=== PATIENT | male | born 1930 | race Caucasian/White ===

== ENCOUNTER → 2017-08-21 | Outpatient (CLI) | payer MEDICARE, OTHER ==
[2017-08-21] MEDS: REGADENOSON 0.4 MG/5 ML DISP.SYRIN. IV (10:08)
== END | disposition home or self-care (01) ==
LOC: NM 09:26
DX: I08.1 Rheumatic disorders of both mitral and tricuspid valves (principal); I48.91 Unspecified atrial fibrillation; I10 Essential (primary) hypertension; I25.2 Old myocardial infarction; I27.20 Pulmonary hypertension, unspecified
CPT/HCPCS: 78452; 93017; 93306; 96374; 96375; 96376; A9500; J2785

== ENCOUNTER → 2017-08-31 | Day surgery (SDC) | payer MEDICARE, OTHER ==
[~2017-08-31] MED LIST: 0.9 % SODIUM CHLORIDE 10 ML DISP.SYRIN. IV; BENZOCAINE ONE 20% MUCOSAL SPRAY.; IV RINGERS,LACTATED 1000ML 1,000 ML IV; LIDOCAINE 1% PF 2 ML VIAL. ID; LIDOCAINE 2% PF Vial for OR 5 ML VIAL.; LIDOCAINE 2% TOPICAL JELLY 5GM TUBE. TP; LIDOCAINE 2% VISCOUS 15 ML SOLUTION.; MORPHINE SULFATE 4 MG/ML DISP.SYRIN. IV; ONDANSETRON PF 4 MG/2 ML VIAL. IV; PROCHLORPERAZINE 10 MG/2 ML VIAL. IV; PROPOFOL 20 ML IV; fentaNYL PF VIAL 100 MCG/2 ML VIAL IV
[2017-08-31 10:20] LABS: HEMATOCRIT 35.5 % (39.0-53.0); HEMOGLOBIN 11.8 g/dL (13.0-17.5); MEAN CORPUSCULAR HEMOGLOBIN 28 pg (25-35); MEAN CORPUSCULAR HGB CONC 33 g/dL (31-37); MEAN CORPUSCULAR VOLUME 85 fL (79-100); PLATELET COUNT 212 x10^3/uL (140-400); RED CELL DISTRIBUTION WIDTH 16.5 % (11.5-14.5); WHITE BLOOD COUNT 6.7 x10^3/uL (4.0-11.0)
[2017-08-31 10:43] LABS: ANION GAP 8 (6-14); BLOOD UREA NITROGEN 26 mg/dL (8-26); CALCIUM 8.5 mg/dL (8.5-10.1); CARBON DIOXIDE 29 mmol/L (21-32); CHLORIDE 106 mmol/L (98-107); CREATININE 1.1 mg/dL (0.7-1.3); GFR 63.3; GLUCOSE 97 mg/dL (70-99); MAGNESIUM 1.8 mg/dL (1.8-2.4); POTASSIUM 3.5 mmol/L (3.5-5.1); SODIUM 143 mmol/L (136-145)
== END | disposition home or self-care (01) ==
LOC: SURG 08:52
DX: I48.91 Unspecified atrial fibrillation (principal); Z86.73 Personal history of transient ischemic attack (TIA), and cerebral infarction without residual deficits; I27.20 Pulmonary hypertension, unspecified; E78.00 Pure hypercholesterolemia, unspecified; I10 Essential (primary) hypertension; J44.9 Chronic obstructive pulmonary disease, unspecified; M19.90 Unspecified osteoarthritis, unspecified site; Z72.89 Other problems related to lifestyle; Z87.891 Personal history of nicotine dependence; Z79.82 Long term (current) use of aspirin; Z79.899 Other long term (current) drug therapy; Z82.3 Family history of stroke; Z79.01 Long term (current) use of anticoagulants; Z98.42 Cataract extraction status, left eye; Z98.41 Cataract extraction status, right eye; Z96.1 Presence of intraocular lens
CPT/HCPCS: 36415; 80048; 83735; 85027; 92960; 93005; J2704

== ENCOUNTER → 2017-10-19 | Day surgery (SDC) | payer MEDICARE, OTHER ==
[~2017-10-19] MED LIST changes: -BENZOCAINE ONE 20% MUCOSAL SPRAY.; -IV RINGERS,LACTATED 1000ML 1,000 ML IV; -LIDOCAINE 1% PF 2 ML VIAL. ID; -LIDOCAINE 2% PF Vial for OR 5 ML VIAL.; -LIDOCAINE 2% TOPICAL JELLY 5GM TUBE. TP; -LIDOCAINE 2% VISCOUS 15 ML SOLUTION.; -MORPHINE SULFATE 4 MG/ML DISP.SYRIN. IV; -ONDANSETRON PF 4 MG/2 ML VIAL. IV; -PROCHLORPERAZINE 10 MG/2 ML VIAL. IV; -PROPOFOL 20 ML IV; -fentaNYL PF VIAL 100 MCG/2 ML VIAL IV
[2017-10-19] MEDS: IV RINGERS,LACTATED 1000ML 1,000 ML IV (07:00)
[2017-10-19 10:10] LABS: ANION GAP 4 (6-14); BLOOD UREA NITROGEN 19 mg/dL (8-26); CALCIUM 8.4 mg/dL (8.5-10.1); CARBON DIOXIDE 35 mmol/L (21-32); CHLORIDE 102 mmol/L (98-107); CREATININE 1.3 mg/dL (0.7-1.3); GFR 52.1; GLUCOSE 96 mg/dL (70-99); MAGNESIUM 1.8 mg/dL (1.8-2.4); SODIUM 141 mmol/L (136-145)
[2017-10-19 10:18] LABS: POTASSIUM 2.8 mmol/L (3.5-5.1)
[2017-10-19] MEDS: POTASSIUM CHLORIDE 20 MEQ TABLET.ER. PO (10:57)
== END | disposition home or self-care (01) ==
LOC: SURG 10:24
DX: I48.91 Unspecified atrial fibrillation (principal); Z53.8 Procedure and treatment not carried out for other reasons; I10 Essential (primary) hypertension; M19.90 Unspecified osteoarthritis, unspecified site; E78.00 Pure hypercholesterolemia, unspecified; J44.9 Chronic obstructive pulmonary disease, unspecified; Z72.89 Other problems related to lifestyle; Z98.890 Other specified postprocedural states; Z98.42 Cataract extraction status, left eye; Z98.41 Cataract extraction status, right eye; Z86.73 Personal history of transient ischemic attack (TIA), and cerebral infarction without residual deficits; Z87.891 Personal history of nicotine dependence
CPT/HCPCS: 36415; 80048; 83735; 93005

== ENCOUNTER 2018-09-09 17:57 | Inpatient (IN) | payer MEDICARE, OTHER ==
[~2018-09-09] VITALS: Ht 175.3 cm; Wt 78.9 kg
[~2018-09-09 17:57] MED LIST changes: -0.9 % SODIUM CHLORIDE 10 ML DISP.SYRIN. IV; +AMIO200T4 PO; +APIX2.5T PO; +ASPI-630 PO; +CALC-98 PO; +CRESTOR20 MG PO; +LOSA1TAB19 PO; +TYLENOL ARTHRITIS PO
[2018-09-09] MEDS ORDERED: IPRATRPIUM/ALBUTEROL 0.5/2.5MG 3 ML NEBU. ONE (18:09)
--- NOTE | 2018-09-09 18:28 | PHYS DOC ---
Adult General Chief Complaint Chief Complaint: BRADYCARDIA HPI HPI Patient is an 88-year-old male who presents to emergency room with report of mental status change, hypoxia and shortness of breath on exertion. Patient re portedly had been seen by Dr. Stuart and worry and family indicates that he indicated that patient had normal echocardiogram. Patient does note that he has had some increase in swelling to his lower legs for the last few days. He denies any chest pain and states that he doesn't feel short of breath unless he tries to walk. He denies any nausea, vomiting or diaphoresis. Family also indicates that patient has been confused and they state that his primary care provider had wanted to get a CT of his head to evaluate for possibility of stroke. Patient reportedly has no slurred speech and no other signs of stroke.[] Review of Systems Review of Systems Constitutional: Denies fever or chills [] Respiratory: Positive exertional shortness of breath [] Cardiovascular: No additional information not addressed in HPI [] GI: Denies abdominal pain, nausea, vomiting or diarrhea [] Integument: Denies rash or skin lesions [] Neurologic: Denies headache, focal weakness or sensory changes [] All other systems were reviewed and found to be within normal limits, except as documented in this note. Current Medications Current Medications Current Medications Medications (Trade) Dose Ordered Sig/Jose Start Time Stop Time Status Last Admin Dose Admin Albuterol/ Ipratropium (Duoneb) 3 ml STK-MED ONCE 09/09/18 18:09 09/09/18 18:10 DC Allergies Allergies Allergies Coded Allergies Type Severity Reaction Last Updated Verified No Known Drug Allergies 10/19/17 No Physical Exam Physical Exam Constitutional: Well developed, well nourished, no acute distress, non-toxic appearance. [] HENT: Normocephalic, atraumatic, bilateral external ears normal, oropharynx moist, no oral exudates, nose normal. [] Eyes: PERRLA, EOMI, conjunctiva normal, no discharge. [] Neck: Normal range of motion, no tenderness, supple, no stridor. [] Cardiovascular: Bradycardic rate with irregular rhythm[] Lungs & Thorax: Bilateral breath sounds clear to auscultation [] Abdomen: Bowel sounds normal, soft, no tenderness. [] Skin: Warm, dry, no erythema, no rash. [] Extremities: No tenderness, no cyanosis, no clubbing, ROM intact, with 3+ lower extremity pitting edema. [] Neurologic: Awake and alert, no focal deficits noted. [] Current Patient Data Vital Signs Vital Signs Date Time Temp Pulse Resp B/P (MAP) Pulse Ox O2 Delivery O2 Flow Rate FiO2 09/09/18 19:37 40 18 174/64 (100) 97 Nasal Cannula 2.0 09/09/18 18:08 98.1 98.1 Lab Values Laboratory Tests Test 09/09/18 18:10 09/09/18 18:36 09/09/18 19:40 White Blood Count 6.7 x10^3/uL (4.0-11.0) Red Blood Count 3.82 x10^6/uL (4.30-5.70) L Hemoglobin 9.3 g/dL (13.0-17.5) L Hematocrit 30.9 % (39.0-53.0) L Mean Corpuscular Volume 81 fL (79-100) Mean Corpuscular Hemoglobin 24 pg (25-35) L Mean Corpuscular Hemoglobin Concent 30 g/dL (31-37) L Red Cell Distribution Width 17.0 % (11.5-14.5) H Platelet Count 260 x10^3/uL (140-400) Neutrophils (%) (Auto) 76 % (31-73) H Lymphocytes (%) (Auto) 13 % (24-48) L Monocytes (%) (Auto) 11 % (0-9) H Eosinophils (%) (Auto) 0 % (0-3) Basophils (%) (Auto) 1 % (0-3) Neutrophils # (Auto) 5.0 x10^3uL (1.8-7.7) Lymphocytes # (Auto) 0.8 x10^3/uL (1.0-4.8) L Monocytes # (Auto) 0.7 x10^3/uL (0.0-1.1) Eosinophils # (Auto) 0.0 x10^3/uL (0.0-0.7) Basophils # (Auto) 0.1 x10^3/uL (0.0-0.2) Prothrombin Time 17.2 SEC (11.7-14.0) H Prothrombin Time INR 1.4 (0.8-1.1) H PTT 34 SEC (24-38) D-Dimer (Kristie) 2.46 ug/mlFEU (0.00-0.50) H Sodium Level 142 mmol/L (136-145) Potassium Level 3.5 mmol/L (3.5-5.1) Chloride Level 103 mmol/L (98-107) Carbon Dioxide Level 28 mmol/L (21-32) Anion Gap 11 (6-14) Blood Urea Nitrogen 55 mg/dL (8-26) H Creatinine 2.4 mg/dL (0.7-1.3) H Estimated GFR (Cockcroft-Gault) 25.6 BUN/Creatinine Ratio 23 (6-20) H Glucose Level 94 mg/dL (70-99) Calcium Level 8.4 mg/dL (8.5-10.1) L Total Bilirubin 1.8 mg/dL (0.2-1.0) H Aspartate Amino Transferase (AST) 76 U/L (15-37) H Alanine Aminotransferase (ALT) 47 U/L (16-63) Alkaline Phosphatase 156 U/L (46-116) H Troponin I Quantitative 0.123 ng/mL (0.000-0.055) WR-Gkx-Z-Type Natriuretic Peptide 6062 pg/mL (0-449) H Total Protein 6.7 g/dL (6.4-8.2) Albumin 2.8 g/dL (3.4-5.0) L Albumin/Globulin Ratio 0.7 (1.0-1.7) L Influenza Type A Antigen Negative (NEGATIVE) Influenza Type B Antigen Negative (NEGATIVE) Lactic Acid Level 2.0 mmol/L (0.4-2.0) Laboratory Tests 09/09/18 18:10 Laboratory Tests 09/09/18 18:10 EKG EKG [] Interpretation Time: EKG demonstrates irregular rhythm with rate of 47. Radiology/Procedures Radiology/Procedures [] Impressions: PROCEDURE: CT HEAD WO CONTRAST CT HEAD WO CONTRAST History: Altered mental status Comparison: None. Technique: Noncontrast CT imaging was performed of the head. Exposure: One or more of the following individualized dose reduction techniques were utilized for this examination: 1. Automated exposure control 2. Adjustment of the mA and/or kV according to patient size 3. Use of iterative reconstruction technique. Findings: There is some motion. There is focus of lower density with extent to the cortical surface of the left frontal lobe about 3 cm in size with associated faint somewhat curvilinear appearing hyperdensity. There is no significant midline shift. Ventricular size is fairly proportionate to the sulcal spaces, mild supratentorial involutional change. There may be thin left frontal region extra-axial subdural collection although not significantly hyperdense in greatest thickness about 0.3 to 0.4 cm, asymmetric with the right side. There is likely old right cerebellar lacunar infarct. There is some scattered ill-defined low-density of the supratentorial parenchyma greatest of the left frontal parietal white matter. There is severe very minimal ethmoid air cell opacification greater on the left, also prominent left maxillary sinus mucosal thickening with heterogeneous density. There is near complete opacification of the left frontal sinus. Mastoid air cells are aerated. Impression: 1. There is a focus of lower density of the left frontal lobe with cortical involvement, compatible with previous at least subacute if not chronic infarct, mild hyperdensity along margin which may be due to mild petechial type hemorrhage. There is very thin extra-axial subdural density in the left frontal region which may be small chronic subdural hematoma/effusion, not significantly hyperdense. Other ill-defined low-density of the supratentorial parenchyma is likely due to chronic microvascular ischemic disease. 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 2. There is paranasal sinus mucosal thickening/opacification as stated greatest of the left frontal sinus, left ethmoid air cells, left maxillary sinus. FOR INTERNAL CODING PURPOSES Critical result: Findings discussed with BAILEY REILLY at 09/09/2018 7:15 PM. RESULT CODE: (C) Electronically signed by: Benjamin Mckeon MD (09/09/2018 7:16 PM) [facility] PROCEDURE: CHEST PA & LATERAL CHEST PA LATERAL History: Dyspnea Comparison: None. Findings: 2 views of the chest are submitted. There is emphysema. Pericardial cardiac silhouette is somewhat enlarged. There is atherosclerotic calcification near aortic arch. There is no pneumothorax or significant pleural fluid. There is some opacity anteriorly on the lateral view, may be component of mild right middle lobe atelectasis or infiltrate. Impression: 1. There is some opacity anteriorly on the lateral view, possible mild atelectasis or infiltrate of the right middle lobe. There is no previous exam to evaluate for change. There is emphysema. Electronically signed by: Benjamin Mckeon MD (09/09/2018 7:33 PM) [facility] Course & Med Decision Making Course & Med Decision Making Pertinent Labs and Imaging studies reviewed. (See chart for details) [] Dragon Disclaimer Dragon Disclaimer This electronic medical record was generated, in whole or in part, using a voice recognition dictation system. Departure Departure Impression: Primary Impression: CVA (cerebral vascular accident) Additional Impressions: Hypoxia Acute kidney injury Elevated troponin Disposition: ADMITTED INPATIENT Admitting Physician: Millicent Martell Condition: IMPROVED Referrals: AMERICA GARCIA MD (PCP) Problem Qualifiers Primary Impression: CVA (cerebral vascular accident) CVA mechanism: unspecified Qualified Codes: I63.9 - Cerebral infarction, unspecified BAILEY REILLY Jr. DO September 09, 2018 18:28
[2018-09-09 18:30] LABS: BASO # 0.1 x10^3/uL (0.0-0.2); BASO % 1 % (0-3); EOS % 0 % (0-3); HEMATOCRIT 30.9 % (39.0-53.0); HEMOGLOBIN 9.3 g/dL (13.0-17.5); LYMPH # 0.8 x10^3/uL (1.0-4.8); LYMPH % 13 % (24-48); MEAN CORPUSCULAR HEMOGLOBIN 24 pg (25-35); MEAN CORPUSCULAR HGB CONC 30 g/dL (31-37); MEAN CORPUSCULAR VOLUME 81 fL (79-100); MONO # 0.7 x10^3/uL (0.0-1.1); MONO % 11 % (0-9); NEUT % 76 % (31-73); PLATELET COUNT 260 x10^3/uL (140-400); RED BLOOD COUNT 3.82 x10^6/uL (4.30-5.70); WHITE BLOOD COUNT 6.7 x10^3/uL (4.0-11.0)
[2018-09-09 18:40] LABS: CALCIUM 8.4 mg/dL (8.5-10.1); CREATININE 2.4 mg/dL (0.7-1.3); GFR 25.6; POTASSIUM 3.5 mmol/L (3.5-5.1)
[2018-09-09 18:47] LABS: ALBUMIN 2.8 g/dL (3.4-5.0); ALBUMIN/GLOBULIN RATIO 0.7 (1.0-1.7); TOTAL BILIRUBIN 1.8 mg/dL (0.2-1.0); TOTAL PROTEIN 6.7 g/dL (6.4-8.2)
[2018-09-09 18:59] LABS: INFLUENZA A PATIENT NEGATIVE (NEGATIVE); INFLUENZA B PATIENT NEGATIVE (NEGATIVE)
--- NOTE | 2018-09-09 19:19 | RAD ---
CT HEAD WO CONTRAST History: Altered mental status Comparison: None. Technique: Noncontrast CT imaging was performed of the head. Exposure: One or more of the following individualized dose reduction techniques were utilized for this examination: 1. Automated exposure control 2. Adjustment of the mA and/or kV according to patient size 3. Use of iterative reconstruction technique. Findings: There is some motion. There is focus of lower density with extent to the cortical surface of the left frontal lobe about 3 cm in size with associated faint somewhat curvilinear appearing hyperdensity. There is no significant midline shift. Ventricular size is fairly proportionate to the sulcal spaces, mild supratentorial involutional change. There may be thin left frontal region extra-axial subdural collection although not significantly hyperdense in greatest thickness about 0.3 to 0.4 cm, asymmetric with the right side. There is likely old right cerebellar lacunar infarct. There is some scattered ill-defined low-density of the supratentorial parenchyma greatest of the left frontal parietal white matter. There is severe very minimal ethmoid air cell opacification greater on the left, also prominent left maxillary sinus mucosal thickening with heterogeneous density. There is near complete opacification of the left frontal sinus. Mastoid air cells are aerated. Impression: 1. There is a focus of lower density of the left frontal lobe with cortical involvement, compatible with previous at least subacute if not chronic infarct, mild hyperdensity along margin which may be due to mild petechial type hemorrhage. There is very thin extra-axial subdural density in the left frontal region which may be small chronic subdural hematoma/effusion, not significantly hyperdense. Other ill-defined low-density of the supratentorial parenchyma is likely due to chronic microvascular ischemic disease. 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 2. There is paranasal sinus mucosal thickening/opacification as stated greatest of the left frontal sinus, left ethmoid air cells, left maxillary sinus. FOR INTERNAL CODING PURPOSES Critical result: Findings discussed with BAILEY REILLY at 09/09/2018 7:15 PM. RESULT CODE: (C) Electronically signed by: Benjamin Mckeon MD (09/09/2018 7:16 PM) [facility]
--- NOTE | 2018-09-09 19:36 | RAD ---
CHEST PA LATERAL History: Dyspnea Comparison: None. Findings: 2 views of the chest are submitted. There is emphysema. Pericardial cardiac silhouette is somewhat enlarged. There is atherosclerotic calcification near aortic arch. There is no pneumothorax or significant pleural fluid. There is some opacity anteriorly on the lateral view, may be component of mild right middle lobe atelectasis or infiltrate. Impression: 1. There is some opacity anteriorly on the lateral view, possible mild atelectasis or infiltrate of the right middle lobe. There is no previous exam to evaluate for change. There is emphysema. Electronically signed by: Benjamin Mckeon MD (09/09/2018 7:33 PM) [facility]
[2018-09-09 20:07] LABS: PROTHROMBIN TIME PATIENT 17.2 SEC (11.7-14.0)
[2018-09-09] MEDS ORDERED: ONDANSETRON PF 4 MG/2 ML VIAL. IV PRN (21:00)
[2018-09-09] MEDS ORDERED: ACETAMINOPHEN 325 MG TABLET. PO PRN (21:00)
[2018-09-09] MEDS ORDERED: MORPHINE SULFATE 2 MG/ML VIAL. IV PRN (21:00)
[2018-09-09] MEDS ORDERED: LEVO50TA5 PO (21:26)
[2018-09-09] MEDS ORDERED: HYDR12.58 PO (21:26)
--- NOTE | 2018-09-09 22:25 | NUR ---
Patient admitted to room 108. Patient alert and oriented x 4. Patient oriented to room, bed, call light and use of call light. Patient verbalized understanding. Vital monitoring and Telemetry monitoring initiated. Narda Leyva charge lpn RN to monitor Telemetry. See Admission assessment/documentation.
[2018-09-09 22:30] VITALS: BP 182/66
--- NOTE | 2018-09-09 22:45 | NUR ---
Patient's daughters here and are taking valuables/medications home. Patient's daughters stated that their father has been a little different acting for about a month. Patient was dozing off to sleep and had jerky type movements. Patient daughters concerned and considering staying at bedside with Patient. Daughters informed of policy that 1 person could stay in room and 1 in waiting room.
[2018-09-09 23:00] VITALS: BP 169/59
--- NOTE | 2018-09-09 23:10 | NUR ---
Patient's daughters decided to leave for night and come back in am. Patient resting. Call light in reach, bed alarm on.
[2018-09-10] VITALS (24 sets, daily range): BP systolic 123–178; BP diastolic 41–86
[2018-09-10 05:32] LABS: BASO # 0.1 x10^3/uL (0.0-0.2); BASO % 1 % (0-3); EOS % 1 % (0-3); HEMATOCRIT 28.3 % (39.0-53.0); HEMOGLOBIN 8.8 g/dL (13.0-17.5); LYMPH % 13 % (24-48); MEAN CORPUSCULAR HEMOGLOBIN 25 pg (25-35); MEAN CORPUSCULAR HGB CONC 31 g/dL (31-37); MEAN CORPUSCULAR VOLUME 80 fL (79-100); MONO # 0.8 x10^3/uL (0.0-1.1); MONO % 10 % (0-9); NEUT # 5.9 x10^3uL (1.8-7.7); NEUT % 76 % (31-73); PLATELET COUNT 222 x10^3/uL (140-400); RED BLOOD COUNT 3.54 x10^6/uL (4.30-5.70); RED CELL DISTRIBUTION WIDTH 16.9 % (11.5-14.5); WHITE BLOOD COUNT 7.8 x10^3/uL (4.0-11.0)
[2018-09-10 05:49] LABS: ALBUMIN 2.5 g/dL (3.4-5.0); ALBUMIN/GLOBULIN RATIO 0.8 (1.0-1.7); CALCIUM 8.2 mg/dL (8.5-10.1); GFR 31.6; POTASSIUM 3.4 mmol/L (3.5-5.1); TOTAL BILIRUBIN 1.4 mg/dL (0.2-1.0); TOTAL PROTEIN 5.6 g/dL (6.4-8.2)
--- NOTE | 2018-09-10 06:14 | NUR ---
Patient has resting on and off throughout the night. Patient has denied pain. Patient voided x 2 this shift. Jerking movements noted on and off throughout shift. Call light remains in reach.
--- NOTE | 2018-09-10 06:26 | EKG ---
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
--- NOTE | 2018-09-10 08:16 | EKG ---
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
--- NOTE | 2018-09-10 10:44 | PDOC1 ---
History and Physical Date of Admission: Date of Admission DATE: 09/10/18 TIME: 10:39 Chief Complaint: Problems: (1) Hypoxia (2) CVA (cerebral vascular accident) (3) Elevated troponin (4) Acute kidney injury Chief Complain: Mental status change weakness hypoxia shortness of breath History of Present Illness: HPI: This is a elderly white male who presented to the ER with the above chief complaints Basically his been short of breath and weak and having some mental status change Rates that 10 out 10 has associated shortness of breath and weakness and some anxiety we did a CAT scan in the ER It shows he's got a subacute stroke He is also hypoxic and has a elevated troponin and some kidney failure I discussed case with ER physician patient is being admitted to the ICU Past Medical/Surgical History: PMH/PSH: Hypertension Chronic renal insufficiency Obesity Heart appearing Allergies: Allergies: Coded Allergies: No Known Drug Allergies (Unverified , 10/19/17) Family History: Family History: Diabetes and hypertension Social History: Social Hisoty: He is retired he doesn't drink smoke or take drugs Current Medications: Current Medications Current Medications Albuterol/ Ipratropium (Duoneb) 3 ml STK-MED ONCE .ROUTE ; Start 09/09/18 at 18:09; Stop 09/09/18 at 18:10; Status DC Ondansetron HCl (Zofran) 4 mg PRN Q8HRS PRN IV NAUSEA/VOMITING 1ST CHOICE; Start 09/09/18 at 21:00; Stop 09/10/18 at 20:59 Morphine Sulfate (Morphine Sulfate) 2 mg PRN Q2HR PRN IV SEVERE PAIN; Start 09/09/18 at 21:00; Stop 09/10/18 at 20:59 Acetaminophen (Tylenol) 650 mg PRN Q4HRS PRN PO FEVER; Start 09/09/18 at 21:00; Stop 09/10/18 at 20:59 Active Scripts Active Reported Hydrochlorothiazide Tablet (Hydrochlorothiazide) 12.5 Mg Tablet 12.5 Mg PO DAILY Levothyroxine Sodium 50 Mcg Tablet 1 Tab PO DAILY Amiodarone Hcl 200 Mg Tablet 1 Tab PO DAILY [Tylenol Arthritis] PO PRN PRN Calcium + Vitamin D Tablet (Calcium Carbonate/Vitamin D3) 1 Each Tablet 1 Each PO BID Losartan-Hctz 50-12.5 Mg Tab (Losartan/Hydrochlorothiazide) 1 Each Tablet 1 Tab PO QHS Crestor (Rosuvastatin Calcium) 20 Mg Tablet 1 Tab PO 3X/WEEK Aspirin 81 Mg Tab.chew 1 Tab PO QHS Eliquis (Apixaban) 2.5 Mg Tablet 2.5 Mg PO BID ROS: Review of Systems Review of System REVIEW OF SYSTEMS: GENERAL: Denies weakness SKIN: No bruising, hair changes or rashes. EYES: No blurred, double or loss of vision. NOSE AND THROAT: No history of nosebleeds, hoarseness or sore throat. HEART: No history of palpitations, chest pain or shortness of breath on exertion. LUNGS: Complains of shortness of breath GASTROINTESTINAL: Denies changes in appetite, nausea, vomiting, diarrhea or constipation. GENITOURINARY: No history of frequency, urgency, hesitancy or nocturia. NEUROLOGIC: Complains of weakness PSYCHIATRIC: No history of panic, anxiety or depression. ENDOCRINE: No history of heat or cold intolerance, polyuria or polydipsia. EXTREMITIES: Denies muscle weakness, joint pain, pain on walking or stiffness. Physical Exam: Vital Signs: Vital Signs Date Time Temp Pulse Resp B/P (MAP) Pulse Ox O2 Delivery O2 Flow Rate FiO2 09/10/18 09:00 40 22 169/76 (107) 96 Nasal Cannula 3.0 09/10/18 08:00 98.1 98.1 Physcial Exam: GEN.: Hard of hearing doesn't answer my questions too much. Appears frail and weak d. HEENT: Head is normocephalic, atraumatic NECK: Supple, no JVD LUNGS: Clear to auscultation without rhonchi or wheezing HEART: RRR, S1, S2, S3 present. Peripheral pulses intact ABDOMEN: Distended EXTREMITIES: 1+ edema NEUROLOGIC: Normal speech, normal tone. A&O x 3 PSYCHIATRIC: Normal affect, normal mood. Stable SKIN: No ulcerations or rashes VASCULAR: Good capillary refill Labs: Labs: Laboratory Tests Test 09/09/18 18:10 09/09/18 18:36 09/09/18 19:40 09/10/18 00:01 White Blood Count 6.7 x10^3/uL (4.0-11.0) Red Blood Count 3.82 x10^6/uL (4.30-5.70) Hemoglobin 9.3 g/dL (13.0-17.5) Hematocrit 30.9 % (39.0-53.0) Mean Corpuscular Volume 81 fL (79-100) Mean Corpuscular Hemoglobin 24 pg (25-35) Mean Corpuscular Hemoglobin Concent 30 g/dL (31-37) Red Cell Distribution Width 17.0 % (11.5-14.5) Platelet Count 260 x10^3/uL (140-400) Neutrophils (%) (Auto) 76 % (31-73) Lymphocytes (%) (Auto) 13 % (24-48) Monocytes (%) (Auto) 11 % (0-9) Eosinophils (%) (Auto) 0 % (0-3) Basophils (%) (Auto) 1 % (0-3) Neutrophils # (Auto) 5.0 x10^3uL (1.8-7.7) Lymphocytes # (Auto) 0.8 x10^3/uL (1.0-4.8) Monocytes # (Auto) 0.7 x10^3/uL (0.0-1.1) Eosinophils # (Auto) 0.0 x10^3/uL (0.0-0.7) Basophils # (Auto) 0.1 x10^3/uL (0.0-0.2) Prothrombin Time 17.2 SEC (11.7-14.0) Prothromb Time International Ratio 1.4 (0.8-1.1) Activated Partial Thromboplast Time 34 SEC (24-38) D-Dimer (Kristie) 2.46 ug/mlFEU (0.00-0.50) Sodium Level 142 mmol/L (136-145) Potassium Level 3.5 mmol/L (3.5-5.1) Chloride Level 103 mmol/L (98-107) Carbon Dioxide Level 28 mmol/L (21-32) Anion Gap 11 (6-14) Blood Urea Nitrogen 55 mg/dL (8-26) Creatinine 2.4 mg/dL (0.7-1.3) Estimated GFR (Cockcroft-Gault) 25.6 BUN/Creatinine Ratio 23 (6-20) Glucose Level 94 mg/dL (70-99) Calcium Level 8.4 mg/dL (8.5-10.1) Total Bilirubin 1.8 mg/dL (0.2-1.0) Aspartate Amino Transf (AST/SGOT) 76 U/L (15-37) Alanine Aminotransferase (ALT/SGPT) 47 U/L (16-63) Alkaline Phosphatase 156 U/L (46-116) Troponin I Quantitative 0.123 ng/mL (0.000-0.055) 0.126 ng/mL (0.000-0.055) QQ-Lum-E-Type Natriuretic Peptide 6062 pg/mL (0-449) Total Protein 6.7 g/dL (6.4-8.2) Albumin 2.8 g/dL (3.4-5.0) Albumin/Globulin Ratio 0.7 (1.0-1.7) Influenza Type A Antigen Negative (NEGATIVE) Influenza Type B Antigen Negative (NEGATIVE) Lactic Acid Level 2.0 mmol/L (0.4-2.0) Test 09/10/18 05:00 White Blood Count 7.8 x10^3/uL (4.0-11.0) Red Blood Count 3.54 x10^6/uL (4.30-5.70) Hemoglobin 8.8 g/dL (13.0-17.5) Hematocrit 28.3 % (39.0-53.0) Mean Corpuscular Volume 80 fL (79-100) Mean Corpuscular Hemoglobin 25 pg (25-35) Mean Corpuscular Hemoglobin Concent 31 g/dL (31-37) Red Cell Distribution Width 16.9 % (11.5-14.5) Platelet Count 222 x10^3/uL (140-400) Neutrophils (%) (Auto) 76 % (31-73) Lymphocytes (%) (Auto) 13 % (24-48) Monocytes (%) (Auto) 10 % (0-9) Eosinophils (%) (Auto) 1 % (0-3) Basophils (%) (Auto) 1 % (0-3) Neutrophils # (Auto) 5.9 x10^3uL (1.8-7.7) Lymphocytes # (Auto) 1.0 x10^3/uL (1.0-4.8) Monocytes # (Auto) 0.8 x10^3/uL (0.0-1.1) Eosinophils # (Auto) 0.0 x10^3/uL (0.0-0.7) Basophils # (Auto) 0.1 x10^3/uL (0.0-0.2) Sodium Level 143 mmol/L (136-145) Potassium Level 3.4 mmol/L (3.5-5.1) Chloride Level 105 mmol/L (98-107) Carbon Dioxide Level 30 mmol/L (21-32) Anion Gap 8 (6-14) Blood Urea Nitrogen 50 mg/dL (8-26) Creatinine 2.0 mg/dL (0.7-1.3) Estimated GFR (Cockcroft-Gault) 31.6 BUN/Creatinine Ratio 25 (6-20) Glucose Level 92 mg/dL (70-99) Calcium Level 8.2 mg/dL (8.5-10.1) Total Bilirubin 1.4 mg/dL (0.2-1.0) Aspartate Amino Transf (AST/SGOT) 63 U/L (15-37) Alanine Aminotransferase (ALT/SGPT) 44 U/L (16-63) Alkaline Phosphatase 137 U/L (46-116) Troponin I Quantitative 0.142 ng/mL (0.000-0.055) Total Protein 5.6 g/dL (6.4-8.2) Albumin 2.5 g/dL (3.4-5.0) Albumin/Globulin Ratio 0.8 (1.0-1.7) Laboratory Tests Test 09/09/18 18:10 09/09/18 18:36 09/09/18 19:40 09/10/18 00:01 White Blood Count 6.7 x10^3/uL (4.0-11.0) Red Blood Count 3.82 x10^6/uL (4.30-5.70) Hemoglobin 9.3 g/dL (13.0-17.5) Hematocrit 30.9 % (39.0-53.0) Mean Corpuscular Volume 81 fL (79-100) Mean Corpuscular Hemoglobin 24 pg (25-35) Mean Corpuscular Hemoglobin Concent 30 g/dL (31-37) Red Cell Distribution Width 17.0 % (11.5-14.5) Platelet Count 260 x10^3/uL (140-400) Neutrophils (%) (Auto) 76 % (31-73) Lymphocytes (%) (Auto) 13 % (24-48) Monocytes (%) (Auto) 11 % (0-9) Eosinophils (%) (Auto) 0 % (0-3) Basophils (%) (Auto) 1 % (0-3) Neutrophils # (Auto) 5.0 x10^3uL (1.8-7.7) Lymphocytes # (Auto) 0.8 x10^3/uL (1.0-4.8) Monocytes # (Auto) 0.7 x10^3/uL (0.0-1.1) Eosinophils # (Auto) 0.0 x10^3/uL (0.0-0.7) Basophils # (Auto) 0.1 x10^3/uL (0.0-0.2) Prothrombin Time 17.2 SEC (11.7-14.0) Prothromb Time International Ratio 1.4 (0.8-1.1) Activated Partial Thromboplast Time 34 SEC (24-38) D-Dimer (Kristie) 2.46 ug/mlFEU (0.00-0.50) Sodium Level 142 mmol/L (136-145) Potassium Level 3.5 mmol/L (3.5-5.1) Chloride Level 103 mmol/L (98-107) Carbon Dioxide Level 28 mmol/L (21-32) Anion Gap 11 (6-14) Blood Urea Nitrogen 55 mg/dL (8-26) Creatinine 2.4 mg/dL (0.7-1.3) Estimated GFR (Cockcroft-Gault) 25.6 BUN/Creatinine Ratio 23 (6-20) Glucose Level 94 mg/dL (70-99) Calcium Level 8.4 mg/dL (8.5-10.1) Total Bilirubin 1.8 mg/dL (0.2-1.0) Aspartate Amino Transf (AST/SGOT) 76 U/L (15-37) Alanine Aminotransferase (ALT/SGPT) 47 U/L (16-63) Alkaline Phosphatase 156 U/L (46-116) Troponin I Quantitative 0.123 ng/mL (0.000-0.055) 0.126 ng/mL (0.000-0.055) LZ-Ktl-Y-Type Natriuretic Peptide 6062 pg/mL (0-449) Total Protein 6.7 g/dL (6.4-8.2) Albumin 2.8 g/dL (3.4-5.0) Albumin/Globulin Ratio 0.7 (1.0-1.7) Influenza Type A Antigen Negative (NEGATIVE) Influenza Type B Antigen Negative (NEGATIVE) Lactic Acid Level 2.0 mmol/L (0.4-2.0) Test 09/10/18 05:00 White Blood Count 7.8 x10^3/uL (4.0-11.0) Red Blood Count 3.54 x10^6/uL (4.30-5.70) Hemoglobin 8.8 g/dL (13.0-17.5) Hematocrit 28.3 % (39.0-53.0) Mean Corpuscular Volume 80 fL (79-100) Mean Corpuscular Hemoglobin 25 pg (25-35) Mean Corpuscular Hemoglobin Concent 31 g/dL (31-37) Red Cell Distribution Width 16.9 % (11.5-14.5) Platelet Count 222 x10^3/uL (140-400) Neutrophils (%) (Auto) 76 % (31-73) Lymphocytes (%) (Auto) 13 % (24-48) Monocytes (%) (Auto) 10 % (0-9) Eosinophils (%) (Auto) 1 % (0-3) Basophils (%) (Auto) 1 % (0-3) Neutrophils # (Auto) 5.9 x10^3uL (1.8-7.7) Lymphocytes # (Auto) 1.0 x10^3/uL (1.0-4.8) Monocytes # (Auto) 0.8 x10^3/uL (0.0-1.1) Eosinophils # (Auto) 0.0 x10^3/uL (0.0-0.7) Basophils # (Auto) 0.1 x10^3/uL (0.0-0.2) Sodium Level 143 mmol/L (136-145) Potassium Level 3.4 mmol/L (3.5-5.1) Chloride Level 105 mmol/L (98-107) Carbon Dioxide Level 30 mmol/L (21-32) Anion Gap 8 (6-14) Blood Urea Nitrogen 50 mg/dL (8-26) Creatinine 2.0 mg/dL (0.7-1.3) Estimated GFR (Cockcroft-Gault) 31.6 BUN/Creatinine Ratio 25 (6-20) Glucose Level 92 mg/dL (70-99) Calcium Level 8.2 mg/dL (8.5-10.1) Total Bilirubin 1.4 mg/dL (0.2-1.0) Aspartate Amino Transf (AST/SGOT) 63 U/L (15-37) Alanine Aminotransferase (ALT/SGPT) 44 U/L (16-63) Alkaline Phosphatase 137 U/L (46-116) Troponin I Quantitative 0.142 ng/mL (0.000-0.055) Total Protein 5.6 g/dL (6.4-8.2) Albumin 2.5 g/dL (3.4-5.0) Albumin/Globulin Ratio 0.8 (1.0-1.7) Images: Images 1. There is a focus of lower density of the left frontal lobe with cortical involvement, compatible with previous at least subacute if not chronic infarct, mild hyperdensity along margin which may be due to mild petechial type hemorrhage. There is very thin extra-axial subdural density in the left frontal region which may be small chronic subdural hematoma/effusion, not significantly hyperdense. Other ill-defined low-density of the supratentorial parenchyma is likely due to chronic microvascular ischemic disease. 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 2. There is paranasal sinus mucosal thickening/opacification as stated greatest of the left frontal sinus, left ethmoid air cells, left maxillary sinus. Assessment/Plan Assessment/Plan Stroke symptoms hypoxia, metabolic encephalopathy, possible pneumonia and/or heart failure, Plan ICU monitoring O2 per nasal cannula Consult neurosurgery and neurology Consult pulmonary Consult cardiology DVT prophylaxis Home meds Full code PT OT We'll consider IV antibiotics if pulmonary agrees We'll consider IV diuretics as well Long-term prognosis guarded Total time 32 minutes ALMA MCKEON III DO September 10, 2018 10:44
[2018-09-10] MEDS: hydroCHLOROthiazide 12.5 MG CAPSULE PO SCH (11:08)
--- NOTE | 2018-09-10 11:29 | NUR ---
Dr. Clark gave the okay to restart pt's home Aspirin and Synthroid. Dr. Us okay with restarting pt's hydrochlorothiazide. Pt's other home medications on hold until pt stable.
--- NOTE | 2018-09-10 11:34 | PDOC2 ---
CONSULT Date of Consult Date of Consult DATE: 09/10/18 TIME: 11:33 Reason for Consult Reason for Consult: Bradycardia Referring Physician Referring Physician: Dr. Cabrera Identification/Chief Complaint Chief Complaint Mental status changes and dyspnea Source Source: Caregiver, Chart review, Patient History of Present Illness Reason for Visit: 88-year-old male presented with dyspnea on exertion and being lethargic. Family stated that patient has been weak and confused last few days. He denied any chest pain, orthopnea/PND, palpitations or syncope. He has history of atrial fibrillation for which he was cardioverted in the past. He was diagnosed with subacute CVA, small chronic subdural hematoma, renal insufficiency and admitted for further management. Past Medical History Past Medical History Paroxysmal atrial fibrillation Hypertension Hyperlipidemia Hypothyroidism Past Surgical History Past Surgical History Cataract extraction Polypectomy Family History Family History Hypertension Social History Social History Patient admitted to smoking cigarettes but denied any alcohol or drug use Current Problem List Problem List Problems Medical Problems: (1) Acute kidney injury Status: Acute (2) CVA (cerebral vascular accident) Status: Acute (3) Elevated troponin Status: Acute (4) Hypoxia Status: Acute Current Medications Current Medications Current Medications Albuterol/ Ipratropium (Duoneb) 3 ml STK-MED ONCE .ROUTE ; Start 09/09/18 at 18:09; Stop 09/09/18 at 18:10; Status DC Ondansetron HCl (Zofran) 4 mg PRN Q8HRS PRN IV NAUSEA/VOMITING 1ST CHOICE; Start 09/09/18 at 21:00; Stop 09/10/18 at 20:59 Morphine Sulfate (Morphine Sulfate) 2 mg PRN Q2HR PRN IV SEVERE PAIN; Start 09/09/18 at 21:00; Stop 09/10/18 at 20:59 Acetaminophen (Tylenol) 650 mg PRN Q4HRS PRN PO FEVER; Start 09/09/18 at 21:00; Stop 09/10/18 at 20:59 Hydrochlorothiazide (Microzide) 12.5 mg DAILY PO Last administered on 09/10/18at 11:08; Start 09/10/18 at 11:00 Aspirin (Children'S Aspirin) 81 mg QHS PO ; Start 09/10/18 at 21:00 Levothyroxine Sodium (Synthroid) 50 mcg DAILY06 PO ; Start 09/11/18 at 06:00 Active Scripts Active Reported Hydrochlorothiazide Tablet (Hydrochlorothiazide) 12.5 Mg Tablet 12.5 Mg PO DAILY Levothyroxine Sodium 50 Mcg Tablet 1 Tab PO DAILY Amiodarone Hcl 200 Mg Tablet 1 Tab PO DAILY [Tylenol Arthritis] PO PRN PRN Calcium + Vitamin D Tablet (Calcium Carbonate/Vitamin D3) 1 Each Tablet 1 Each PO BID Losartan-Hctz 50-12.5 Mg Tab (Losartan/Hydrochlorothiazide) 1 Each Tablet 1 Tab PO QHS Crestor (Rosuvastatin Calcium) 20 Mg Tablet 1 Tab PO 3X/WEEK Aspirin 81 Mg Tab.chew 1 Tab PO QHS Allergies Allergies: Coded Allergies: No Known Drug Allergies (Unverified , 10/19/17) ROS PSYCHOLOGICAL ROS: No: Hallucinations Eyes: No Loss of vision HEENT: No: Epistaxis Respiratory: YES: Shortness of breath; No: Hemoptysis Cardiovascular: No Chest Pain, No Palpitations Gastrointestinal: No Vomiting, No Diarrhea Genitourinary: No Hematuria Neurological: Yes Confusion; No Seizures Skin: No Rash Physical Exam General: Alert, Oriented X3 HEENT: Atraumatic Lungs: Clear to auscultation Heart: Other (heart rate slightly irregular) Abdomen: Soft Extremities: Other (1+ pitting pedal edema) Neuro: Normal speech Vitals VITALS Vital Signs Date Time Temp Pulse Resp B/P (MAP) Pulse Ox O2 Delivery O2 Flow Rate FiO2 09/10/18 11:00 53 22 175/66 (102) 97 Nasal Cannula 3.0 09/10/18 08:00 98.1 98.1 Labs Labs Laboratory Tests Test 09/09/18 18:10 09/09/18 18:36 09/09/18 19:40 09/10/18 00:01 White Blood Count 6.7 x10^3/uL (4.0-11.0) Red Blood Count 3.82 x10^6/uL (4.30-5.70) Hemoglobin 9.3 g/dL (13.0-17.5) Hematocrit 30.9 % (39.0-53.0) Mean Corpuscular Volume 81 fL (79-100) Mean Corpuscular Hemoglobin 24 pg (25-35) Mean Corpuscular Hemoglobin Concent 30 g/dL (31-37) Red Cell Distribution Width 17.0 % (11.5-14.5) Platelet Count 260 x10^3/uL (140-400) Neutrophils (%) (Auto) 76 % (31-73) Lymphocytes (%) (Auto) 13 % (24-48) Monocytes (%) (Auto) 11 % (0-9) Eosinophils (%) (Auto) 0 % (0-3) Basophils (%) (Auto) 1 % (0-3) Neutrophils # (Auto) 5.0 x10^3uL (1.8-7.7) Lymphocytes # (Auto) 0.8 x10^3/uL (1.0-4.8) Monocytes # (Auto) 0.7 x10^3/uL (0.0-1.1) Eosinophils # (Auto) 0.0 x10^3/uL (0.0-0.7) Basophils # (Auto) 0.1 x10^3/uL (0.0-0.2) Prothrombin Time 17.2 SEC (11.7-14.0) Prothromb Time International Ratio 1.4 (0.8-1.1) Activated Partial Thromboplast Time 34 SEC (24-38) D-Dimer (Kristie) 2.46 ug/mlFEU (0.00-0.50) Sodium Level 142 mmol/L (136-145) Potassium Level 3.5 mmol/L (3.5-5.1) Chloride Level 103 mmol/L (98-107) Carbon Dioxide Level 28 mmol/L (21-32) Anion Gap 11 (6-14) Blood Urea Nitrogen 55 mg/dL (8-26) Creatinine 2.4 mg/dL (0.7-1.3) Estimated GFR (Cockcroft-Gault) 25.6 BUN/Creatinine Ratio 23 (6-20) Glucose Level 94 mg/dL (70-99) Calcium Level 8.4 mg/dL (8.5-10.1) Total Bilirubin 1.8 mg/dL (0.2-1.0) Aspartate Amino Transf (AST/SGOT) 76 U/L (15-37) Alanine Aminotransferase (ALT/SGPT) 47 U/L (16-63) Alkaline Phosphatase 156 U/L (46-116) Troponin I Quantitative 0.123 ng/mL (0.000-0.055) 0.126 ng/mL (0.000-0.055) NF-Xxn-T-Type Natriuretic Peptide 6062 pg/mL (0-449) Total Protein 6.7 g/dL (6.4-8.2) Albumin 2.8 g/dL (3.4-5.0) Albumin/Globulin Ratio 0.7 (1.0-1.7) Influenza Type A Antigen Negative (NEGATIVE) Influenza Type B Antigen Negative (NEGATIVE) Lactic Acid Level 2.0 mmol/L (0.4-2.0) Test 09/10/18 05:00 White Blood Count 7.8 x10^3/uL (4.0-11.0) Red Blood Count 3.54 x10^6/uL (4.30-5.70) Hemoglobin 8.8 g/dL (13.0-17.5) Hematocrit 28.3 % (39.0-53.0) Mean Corpuscular Volume 80 fL (79-100) Mean Corpuscular Hemoglobin 25 pg (25-35) Mean Corpuscular Hemoglobin Concent 31 g/dL (31-37) Red Cell Distribution Width 16.9 % (11.5-14.5) Platelet Count 222 x10^3/uL (140-400) Neutrophils (%) (Auto) 76 % (31-73) Lymphocytes (%) (Auto) 13 % (24-48) Monocytes (%) (Auto) 10 % (0-9) Eosinophils (%) (Auto) 1 % (0-3) Basophils (%) (Auto) 1 % (0-3) Neutrophils # (Auto) 5.9 x10^3uL (1.8-7.7) Lymphocytes # (Auto) 1.0 x10^3/uL (1.0-4.8) Monocytes # (Auto) 0.8 x10^3/uL (0.0-1.1) Eosinophils # (Auto) 0.0 x10^3/uL (0.0-0.7) Basophils # (Auto) 0.1 x10^3/uL (0.0-0.2) Sodium Level 143 mmol/L (136-145) Potassium Level 3.4 mmol/L (3.5-5.1) Chloride Level 105 mmol/L (98-107) Carbon Dioxide Level 30 mmol/L (21-32) Anion Gap 8 (6-14) Blood Urea Nitrogen 50 mg/dL (8-26) Creatinine 2.0 mg/dL (0.7-1.3) Estimated GFR (Cockcroft-Gault) 31.6 BUN/Creatinine Ratio 25 (6-20) Glucose Level 92 mg/dL (70-99) Calcium Level 8.2 mg/dL (8.5-10.1) Total Bilirubin 1.4 mg/dL (0.2-1.0) Aspartate Amino Transf (AST/SGOT) 63 U/L (15-37) Alanine Aminotransferase (ALT/SGPT) 44 U/L (16-63) Alkaline Phosphatase 137 U/L (46-116) Troponin I Quantitative 0.142 ng/mL (0.000-0.055) Total Protein 5.6 g/dL (6.4-8.2) Albumin 2.5 g/dL (3.4-5.0) Albumin/Globulin Ratio 0.8 (1.0-1.7) Laboratory Tests Test 09/09/18 18:10 09/09/18 18:36 09/09/18 19:40 09/10/18 00:01 White Blood Count 6.7 x10^3/uL (4.0-11.0) Red Blood Count 3.82 x10^6/uL (4.30-5.70) Hemoglobin 9.3 g/dL (13.0-17.5) Hematocrit 30.9 % (39.0-53.0) Mean Corpuscular Volume 81 fL (79-100) Mean Corpuscular Hemoglobin 24 pg (25-35) Mean Corpuscular Hemoglobin Concent 30 g/dL (31-37) Red Cell Distribution Width 17.0 % (11.5-14.5) Platelet Count 260 x10^3/uL (140-400) Neutrophils (%) (Auto) 76 % (31-73) Lymphocytes (%) (Auto) 13 % (24-48) Monocytes (%) (Auto) 11 % (0-9) Eosinophils (%) (Auto) 0 % (0-3) Basophils (%) (Auto) 1 % (0-3) Neutrophils # (Auto) 5.0 x10^3uL (1.8-7.7) Lymphocytes # (Auto) 0.8 x10^3/uL (1.0-4.8) Monocytes # (Auto) 0.7 x10^3/uL (0.0-1.1) Eosinophils # (Auto) 0.0 x10^3/uL (0.0-0.7) Basophils # (Auto) 0.1 x10^3/uL (0.0-0.2) Prothrombin Time 17.2 SEC (11.7-14.0) Prothromb Time International Ratio 1.4 (0.8-1.1) Activated Partial Thromboplast Time 34 SEC (24-38) D-Dimer (Kristie) 2.46 ug/mlFEU (0.00-0.50) Sodium Level 142 mmol/L (136-145) Potassium Level 3.5 mmol/L (3.5-5.1) Chloride Level 103 mmol/L (98-107) Carbon Dioxide Level 28 mmol/L (21-32) Anion Gap 11 (6-14) Blood Urea Nitrogen 55 mg/dL (8-26) Creatinine 2.4 mg/dL (0.7-1.3) Estimated GFR (Cockcroft-Gault) 25.6 BUN/Creatinine Ratio 23 (6-20) Glucose Level 94 mg/dL (70-99) Calcium Level 8.4 mg/dL (8.5-10.1) Total Bilirubin 1.8 mg/dL (0.2-1.0) Aspartate Amino Transf (AST/SGOT) 76 U/L (15-37) Alanine Aminotransferase (ALT/SGPT) 47 U/L (16-63) Alkaline Phosphatase 156 U/L (46-116) Troponin I Quantitative 0.123 ng/mL (0.000-0.055) 0.126 ng/mL (0.000-0.055) XU-Kga-G-Type Natriuretic Peptide 6062 pg/mL (0-449) Total Protein 6.7 g/dL (6.4-8.2) Albumin 2.8 g/dL (3.4-5.0) Albumin/Globulin Ratio 0.7 (1.0-1.7) Influenza Type A Antigen Negative (NEGATIVE) Influenza Type B Antigen Negative (NEGATIVE) Lactic Acid Level 2.0 mmol/L (0.4-2.0) Test 09/10/18 05:00 White Blood Count 7.8 x10^3/uL (4.0-11.0) Red Blood Count 3.54 x10^6/uL (4.30-5.70) Hemoglobin 8.8 g/dL (13.0-17.5) Hematocrit 28.3 % (39.0-53.0) Mean Corpuscular Volume 80 fL (79-100) Mean Corpuscular Hemoglobin 25 pg (25-35) Mean Corpuscular Hemoglobin Concent 31 g/dL (31-37) Red Cell Distribution Width 16.9 % (11.5-14.5) Platelet Count 222 x10^3/uL (140-400) Neutrophils (%) (Auto) 76 % (31-73) Lymphocytes (%) (Auto) 13 % (24-48) Monocytes (%) (Auto) 10 % (0-9) Eosinophils (%) (Auto) 1 % (0-3) Basophils (%) (Auto) 1 % (0-3) Neutrophils # (Auto) 5.9 x10^3uL (1.8-7.7) Lymphocytes # (Auto) 1.0 x10^3/uL (1.0-4.8) Monocytes # (Auto) 0.8 x10^3/uL (0.0-1.1) Eosinophils # (Auto) 0.0 x10^3/uL (0.0-0.7) Basophils # (Auto) 0.1 x10^3/uL (0.0-0.2) Sodium Level 143 mmol/L (136-145) Potassium Level 3.4 mmol/L (3.5-5.1) Chloride Level 105 mmol/L (98-107) Carbon Dioxide Level 30 mmol/L (21-32) Anion Gap 8 (6-14) Blood Urea Nitrogen 50 mg/dL (8-26) Creatinine 2.0 mg/dL (0.7-1.3) Estimated GFR (Cockcroft-Gault) 31.6 BUN/Creatinine Ratio 25 (6-20) Glucose Level 92 mg/dL (70-99) Calcium Level 8.2 mg/dL (8.5-10.1) Total Bilirubin 1.4 mg/dL (0.2-1.0) Aspartate Amino Transf (AST/SGOT) 63 U/L (15-37) Alanine Aminotransferase (ALT/SGPT) 44 U/L (16-63) Alkaline Phosphatase 137 U/L (46-116) Troponin I Quantitative 0.142 ng/mL (0.000-0.055) Total Protein 5.6 g/dL (6.4-8.2) Albumin 2.5 g/dL (3.4-5.0) Albumin/Globulin Ratio 0.8 (1.0-1.7) Assessment/Plan Assessment/Plan 1. Mental status changes: Improved since admission. CT scan of the head showed subacute CVA and chronic subdural hematoma. Neurology and neurosurgical teams have been consulted 2. Acute on chronic renal insufficiency: Per nephrology team 3. Paroxysmal atrial fibrillation s/p cardioversion in the past. Telemetry showed complete heart block with heart rate 40-50 bpm. Blood pressure on the higher side. Avoid rate lowering medications. Monitor telemetry closely and consider permanent pacemaker implantation if bradycardia does not resolve. Recent 2-D echo showed normal left ventricular systolic function. Patient's eliquis was stopped secondary to fall risk. 4. Hypothyroidism: On levo thyroxine 5. Edema: Chest x-ray did not show any acute cardiopulmonary process. Edema is most probably secondary to hypoalbuminemia. We will hold diuretics for now due to acute on chronic renal insufficiency. Thank you for your consultation. JEN TRUJILLO MD September 10, 2018 11:34
--- NOTE | 2018-09-10 12:45 | PDOC2 ---
CONSULT Date of Consult Date of Consult DATE: 09/10/18 TIME: 12:34 Reason for Consult Reason for Consult: JAY JAY Source Source: Chart review History of Present Illness Reason for Visit: This is a elderly white male who presented to the ER with the above chief complaints Basically his been short of breath and weak and having some mental status change Rates that 10 out 10 has associated shortness of breath and weakness and some anxiety we did a CAT scan in the ER It shows he's got a subacute stroke He is also hypoxic and has a elevated troponin and some kidney failure I discussed case with ER physician patient is being admitted to the ICU Current Problem List Problem List Problems Medical Problems: (1) Acute kidney injury Status: Acute (2) CVA (cerebral vascular accident) Status: Acute (3) Elevated troponin Status: Acute (4) Hypoxia Status: Acute Current Medications Current Medications Current Medications Albuterol/ Ipratropium (Duoneb) 3 ml STK-MED ONCE .ROUTE ; Start 09/09/18 at 18:09; Stop 09/09/18 at 18:10; Status DC Ondansetron HCl (Zofran) 4 mg PRN Q8HRS PRN IV NAUSEA/VOMITING 1ST CHOICE; Start 09/09/18 at 21:00; Stop 09/10/18 at 20:59 Morphine Sulfate (Morphine Sulfate) 2 mg PRN Q2HR PRN IV SEVERE PAIN; Start 09/09/18 at 21:00; Stop 09/10/18 at 20:59 Acetaminophen (Tylenol) 650 mg PRN Q4HRS PRN PO FEVER; Start 09/09/18 at 21:00; Stop 09/10/18 at 20:59 Hydrochlorothiazide (Microzide) 12.5 mg DAILY PO Last administered on 09/10/18at 11:08; Start 09/10/18 at 11:00 Aspirin (Children'S Aspirin) 81 mg QHS PO ; Start 09/10/18 at 21:00 Levothyroxine Sodium (Synthroid) 50 mcg DAILY06 PO ; Start 09/11/18 at 06:00 Active Scripts Active Reported Hydrochlorothiazide Tablet (Hydrochlorothiazide) 12.5 Mg Tablet 12.5 Mg PO DAILY Levothyroxine Sodium 50 Mcg Tablet 1 Tab PO DAILY Amiodarone Hcl 200 Mg Tablet 1 Tab PO DAILY [Tylenol Arthritis] PO PRN PRN Calcium + Vitamin D Tablet (Calcium Carbonate/Vitamin D3) 1 Each Tablet 1 Each PO BID Losartan-Hctz 50-12.5 Mg Tab (Losartan/Hydrochlorothiazide) 1 Each Tablet 1 Tab PO QHS Crestor (Rosuvastatin Calcium) 20 Mg Tablet 1 Tab PO 3X/WEEK Aspirin 81 Mg Tab.chew 1 Tab PO QHS Allergies Allergies: Coded Allergies: No Known Drug Allergies (Unverified , 10/19/17) ROS Review of System As per HPI Physical Exam Physical Exam GEN: Awake, Oriented x [], In [] distress EYES: Vision Unchanged, Conjunctiva Normal EN: No EN Drainage, Mucous Membranes [] NECK: [] JVD, [] JVP, Supple, [] Thyromegaly CVS: S1S2, [] Murmur, No Gallop, No Rub,[] Edema RESP: [] Rales, [] Rhonchi,[] Acc. Muscle Use GI: BS + ve, NO Bruit, Non Tender, Non Distended : [] CVA tenderness, [] Suprapubic Tenderness Vital Signs Vital Signs Date Time Temp Pulse Resp B/P (MAP) Pulse Ox O2 Delivery O2 Flow Rate FiO2 09/10/18 12:00 Nasal Cannula 3.0 09/10/18 12:00 97.8 42 29 165/64 (97) 96 97.8 Assessment & Plan ESRD.ARF: Current FLuid and E-lyte status does not necessitate emergent need for Dialysis. Will re-evaluate for Dialysis in am and continue on [ ] schedule. Anemia: [ ] Epogen [ ] Transfuse [ ] with next HD as needed. HTN: Current BP meds reviewed. See orders for changes. Bone & Mineral: [ ] Discussed Plan of Care and prognosis etc. at length with family. Labs Labs Laboratory Tests Test 09/09/18 18:10 09/09/18 18:36 09/09/18 19:40 09/10/18 00:01 White Blood Count 6.7 x10^3/uL (4.0-11.0) Red Blood Count 3.82 x10^6/uL (4.30-5.70) Hemoglobin 9.3 g/dL (13.0-17.5) Hematocrit 30.9 % (39.0-53.0) Mean Corpuscular Volume 81 fL (79-100) Mean Corpuscular Hemoglobin 24 pg (25-35) Mean Corpuscular Hemoglobin Concent 30 g/dL (31-37) Red Cell Distribution Width 17.0 % (11.5-14.5) Platelet Count 260 x10^3/uL (140-400) Neutrophils (%) (Auto) 76 % (31-73) Lymphocytes (%) (Auto) 13 % (24-48) Monocytes (%) (Auto) 11 % (0-9) Eosinophils (%) (Auto) 0 % (0-3) Basophils (%) (Auto) 1 % (0-3) Neutrophils # (Auto) 5.0 x10^3uL (1.8-7.7) Lymphocytes # (Auto) 0.8 x10^3/uL (1.0-4.8) Monocytes # (Auto) 0.7 x10^3/uL (0.0-1.1) Eosinophils # (Auto) 0.0 x10^3/uL (0.0-0.7) Basophils # (Auto) 0.1 x10^3/uL (0.0-0.2) Prothrombin Time 17.2 SEC (11.7-14.0) Prothromb Time International Ratio 1.4 (0.8-1.1) Activated Partial Thromboplast Time 34 SEC (24-38) D-Dimer (Kristie) 2.46 ug/mlFEU (0.00-0.50) Sodium Level 142 mmol/L (136-145) Potassium Level 3.5 mmol/L (3.5-5.1) Chloride Level 103 mmol/L (98-107) Carbon Dioxide Level 28 mmol/L (21-32) Anion Gap 11 (6-14) Blood Urea Nitrogen 55 mg/dL (8-26) Creatinine 2.4 mg/dL (0.7-1.3) Estimated GFR (Cockcroft-Gault) 25.6 BUN/Creatinine Ratio 23 (6-20) Glucose Level 94 mg/dL (70-99) Calcium Level 8.4 mg/dL (8.5-10.1) Total Bilirubin 1.8 mg/dL (0.2-1.0) Aspartate Amino Transf (AST/SGOT) 76 U/L (15-37) Alanine Aminotransferase (ALT/SGPT) 47 U/L (16-63) Alkaline Phosphatase 156 U/L (46-116) Troponin I Quantitative 0.123 ng/mL (0.000-0.055) 0.126 ng/mL (0.000-0.055) GU-Mrc-H-Type Natriuretic Peptide 6062 pg/mL (0-449) Total Protein 6.7 g/dL (6.4-8.2) Albumin 2.8 g/dL (3.4-5.0) Albumin/Globulin Ratio 0.7 (1.0-1.7) Influenza Type A Antigen Negative (NEGATIVE) Influenza Type B Antigen Negative (NEGATIVE) Lactic Acid Level 2.0 mmol/L (0.4-2.0) Test 09/10/18 05:00 White Blood Count 7.8 x10^3/uL (4.0-11.0) Red Blood Count 3.54 x10^6/uL (4.30-5.70) Hemoglobin 8.8 g/dL (13.0-17.5) Hematocrit 28.3 % (39.0-53.0) Mean Corpuscular Volume 80 fL (79-100) Mean Corpuscular Hemoglobin 25 pg (25-35) Mean Corpuscular Hemoglobin Concent 31 g/dL (31-37) Red Cell Distribution Width 16.9 % (11.5-14.5) Platelet Count 222 x10^3/uL (140-400) Neutrophils (%) (Auto) 76 % (31-73) Lymphocytes (%) (Auto) 13 % (24-48) Monocytes (%) (Auto) 10 % (0-9) Eosinophils (%) (Auto) 1 % (0-3) Basophils (%) (Auto) 1 % (0-3) Neutrophils # (Auto) 5.9 x10^3uL (1.8-7.7) Lymphocytes # (Auto) 1.0 x10^3/uL (1.0-4.8) Monocytes # (Auto) 0.8 x10^3/uL (0.0-1.1) Eosinophils # (Auto) 0.0 x10^3/uL (0.0-0.7) Basophils # (Auto) 0.1 x10^3/uL (0.0-0.2) Sodium Level 143 mmol/L (136-145) Potassium Level 3.4 mmol/L (3.5-5.1) Chloride Level 105 mmol/L (98-107) Carbon Dioxide Level 30 mmol/L (21-32) Anion Gap 8 (6-14) Blood Urea Nitrogen 50 mg/dL (8-26) Creatinine 2.0 mg/dL (0.7-1.3) Estimated GFR (Cockcroft-Gault) 31.6 BUN/Creatinine Ratio 25 (6-20) Glucose Level 92 mg/dL (70-99) Calcium Level 8.2 mg/dL (8.5-10.1) Total Bilirubin 1.4 mg/dL (0.2-1.0) Aspartate Amino Transf (AST/SGOT) 63 U/L (15-37) Alanine Aminotransferase (ALT/SGPT) 44 U/L (16-63) Alkaline Phosphatase 137 U/L (46-116) Troponin I Quantitative 0.142 ng/mL (0.000-0.055) Total Protein 5.6 g/dL (6.4-8.2) Albumin 2.5 g/dL (3.4-5.0) Albumin/Globulin Ratio 0.8 (1.0-1.7) Laboratory Tests Test 09/09/18 18:10 09/09/18 18:36 09/09/18 19:40 09/10/18 00:01 White Blood Count 6.7 x10^3/uL (4.0-11.0) Red Blood Count 3.82 x10^6/uL (4.30-5.70) Hemoglobin 9.3 g/dL (13.0-17.5) Hematocrit 30.9 % (39.0-53.0) Mean Corpuscular Volume 81 fL (79-100) Mean Corpuscular Hemoglobin 24 pg (25-35) Mean Corpuscular Hemoglobin Concent 30 g/dL (31-37) Red Cell Distribution Width 17.0 % (11.5-14.5) Platelet Count 260 x10^3/uL (140-400) Neutrophils (%) (Auto) 76 % (31-73) Lymphocytes (%) (Auto) 13 % (24-48) Monocytes (%) (Auto) 11 % (0-9) Eosinophils (%) (Auto) 0 % (0-3) Basophils (%) (Auto) 1 % (0-3) Neutrophils # (Auto) 5.0 x10^3uL (1.8-7.7) Lymphocytes # (Auto) 0.8 x10^3/uL (1.0-4.8) Monocytes # (Auto) 0.7 x10^3/uL (0.0-1.1) Eosinophils # (Auto) 0.0 x10^3/uL (0.0-0.7) Basophils # (Auto) 0.1 x10^3/uL (0.0-0.2) Prothrombin Time 17.2 SEC (11.7-14.0) Prothromb Time International Ratio 1.4 (0.8-1.1) Activated Partial Thromboplast Time 34 SEC (24-38) D-Dimer (Kristie) 2.46 ug/mlFEU (0.00-0.50) Sodium Level 142 mmol/L (136-145) Potassium Level 3.5 mmol/L (3.5-5.1) Chloride Level 103 mmol/L (98-107) Carbon Dioxide Level 28 mmol/L (21-32) Anion Gap 11 (6-14) Blood Urea Nitrogen 55 mg/dL (8-26) Creatinine 2.4 mg/dL (0.7-1.3) Estimated GFR (Cockcroft-Gault) 25.6 BUN/Creatinine Ratio 23 (6-20) Glucose Level 94 mg/dL (70-99) Calcium Level 8.4 mg/dL (8.5-10.1) Total Bilirubin 1.8 mg/dL (0.2-1.0) Aspartate Amino Transf (AST/SGOT) 76 U/L (15-37) Alanine Aminotransferase (ALT/SGPT) 47 U/L (16-63) Alkaline Phosphatase 156 U/L (46-116) Troponin I Quantitative 0.123 ng/mL (0.000-0.055) 0.126 ng/mL (0.000-0.055) ZW-Lyd-B-Type Natriuretic Peptide 6062 pg/mL (0-449) Total Protein 6.7 g/dL (6.4-8.2) Albumin 2.8 g/dL (3.4-5.0) Albumin/Globulin Ratio 0.7 (1.0-1.7) Influenza Type A Antigen Negative (NEGATIVE) Influenza Type B Antigen Negative (NEGATIVE) Lactic Acid Level 2.0 mmol/L (0.4-2.0) Test 09/10/18 05:00 White Blood Count 7.8 x10^3/uL (4.0-11.0) Red Blood Count 3.54 x10^6/uL (4.30-5.70) Hemoglobin 8.8 g/dL (13.0-17.5) Hematocrit 28.3 % (39.0-53.0) Mean Corpuscular Volume 80 fL (79-100) Mean Corpuscular Hemoglobin 25 pg (25-35) Mean Corpuscular Hemoglobin Concent 31 g/dL (31-37) Red Cell Distribution Width 16.9 % (11.5-14.5) Platelet Count 222 x10^3/uL (140-400) Neutrophils (%) (Auto) 76 % (31-73) Lymphocytes (%) (Auto) 13 % (24-48) Monocytes (%) (Auto) 10 % (0-9) Eosinophils (%) (Auto) 1 % (0-3) Basophils (%) (Auto) 1 % (0-3) Neutrophils # (Auto) 5.9 x10^3uL (1.8-7.7) Lymphocytes # (Auto) 1.0 x10^3/uL (1.0-4.8) Monocytes # (Auto) 0.8 x10^3/uL (0.0-1.1) Eosinophils # (Auto) 0.0 x10^3/uL (0.0-0.7) Basophils # (Auto) 0.1 x10^3/uL (0.0-0.2) Sodium Level 143 mmol/L (136-145) Potassium Level 3.4 mmol/L (3.5-5.1) Chloride Level 105 mmol/L (98-107) Carbon Dioxide Level 30 mmol/L (21-32) Anion Gap 8 (6-14) Blood Urea Nitrogen 50 mg/dL (8-26) Creatinine 2.0 mg/dL (0.7-1.3) Estimated GFR (Cockcroft-Gault) 31.6 BUN/Creatinine Ratio 25 (6-20) Glucose Level 92 mg/dL (70-99) Calcium Level 8.2 mg/dL (8.5-10.1) Total Bilirubin 1.4 mg/dL (0.2-1.0) Aspartate Amino Transf (AST/SGOT) 63 U/L (15-37) Alanine Aminotransferase (ALT/SGPT) 44 U/L (16-63) Alkaline Phosphatase 137 U/L (46-116) Troponin I Quantitative 0.142 ng/mL (0.000-0.055) Total Protein 5.6 g/dL (6.4-8.2) Albumin 2.5 g/dL (3.4-5.0) Albumin/Globulin Ratio 0.8 (1.0-1.7) Review All relevant outside records, renal labs, imaging studies, telemetry/EKG's were reviewed. LUIS BRANDT MD September 10, 2018 12:45
--- NOTE | 2018-09-10 13:39 | RAD ---
EXAM: Renal sonogram. HISTORY: Renal insufficiency. TECHNIQUE: Sonographic imaging of the kidneys and bladder was performed. COMPARISON: None. FINDINGS: The exam is limited due to patient motion. The kidneys normal in size. There is a 1.9 cm right renal cyst. There is left renal cortical lobulation likely due to scarring. No discrete solid lesion is seen. There is bilateral renal cortical thinning. There is no hydronephrosis. The bladder is unremarkable. IMPRESSION: 1. Limited exam due to motion. 2. Bilateral renal cortical thinning and suspected left renal cortical encephalomalacia due to scarring. 3. Small right renal cyst. Electronically signed by: Josy Story MD (09/10/2018 1:36 PM) [id number]
--- NOTE | 2018-09-10 13:39 | PDOC ---
PULMONARY PROGRESS NOTES Vitals Vital Signs Date Time Temp Pulse Resp B/P (MAP) Pulse Ox O2 Delivery O2 Flow Rate FiO2 09/10/18 13:00 42 15 155/68 (97) 97 Nasal Cannula 3.0 09/10/18 12:00 97.8 97.8 Labs Laboratory Tests Test 09/09/18 18:10 09/09/18 18:36 09/09/18 19:40 09/10/18 00:01 White Blood Count 6.7 x10^3/uL (4.0-11.0) Red Blood Count 3.82 x10^6/uL (4.30-5.70) Hemoglobin 9.3 g/dL (13.0-17.5) Hematocrit 30.9 % (39.0-53.0) Mean Corpuscular Volume 81 fL (79-100) Mean Corpuscular Hemoglobin 24 pg (25-35) Mean Corpuscular Hemoglobin Concent 30 g/dL (31-37) Red Cell Distribution Width 17.0 % (11.5-14.5) Platelet Count 260 x10^3/uL (140-400) Neutrophils (%) (Auto) 76 % (31-73) Lymphocytes (%) (Auto) 13 % (24-48) Monocytes (%) (Auto) 11 % (0-9) Eosinophils (%) (Auto) 0 % (0-3) Basophils (%) (Auto) 1 % (0-3) Neutrophils # (Auto) 5.0 x10^3uL (1.8-7.7) Lymphocytes # (Auto) 0.8 x10^3/uL (1.0-4.8) Monocytes # (Auto) 0.7 x10^3/uL (0.0-1.1) Eosinophils # (Auto) 0.0 x10^3/uL (0.0-0.7) Basophils # (Auto) 0.1 x10^3/uL (0.0-0.2) Prothrombin Time 17.2 SEC (11.7-14.0) Prothromb Time International Ratio 1.4 (0.8-1.1) Activated Partial Thromboplast Time 34 SEC (24-38) D-Dimer (Kristie) 2.46 ug/mlFEU (0.00-0.50) Sodium Level 142 mmol/L (136-145) Potassium Level 3.5 mmol/L (3.5-5.1) Chloride Level 103 mmol/L (98-107) Carbon Dioxide Level 28 mmol/L (21-32) Anion Gap 11 (6-14) Blood Urea Nitrogen 55 mg/dL (8-26) Creatinine 2.4 mg/dL (0.7-1.3) Estimated GFR (Cockcroft-Gault) 25.6 BUN/Creatinine Ratio 23 (6-20) Glucose Level 94 mg/dL (70-99) Calcium Level 8.4 mg/dL (8.5-10.1) Total Bilirubin 1.8 mg/dL (0.2-1.0) Aspartate Amino Transf (AST/SGOT) 76 U/L (15-37) Alanine Aminotransferase (ALT/SGPT) 47 U/L (16-63) Alkaline Phosphatase 156 U/L (46-116) Troponin I Quantitative 0.123 ng/mL (0.000-0.055) 0.126 ng/mL (0.000-0.055) MG-Ltb-V-Type Natriuretic Peptide 6062 pg/mL (0-449) Total Protein 6.7 g/dL (6.4-8.2) Albumin 2.8 g/dL (3.4-5.0) Albumin/Globulin Ratio 0.7 (1.0-1.7) Influenza Type A Antigen Negative (NEGATIVE) Influenza Type B Antigen Negative (NEGATIVE) Lactic Acid Level 2.0 mmol/L (0.4-2.0) Test 09/10/18 05:00 White Blood Count 7.8 x10^3/uL (4.0-11.0) Red Blood Count 3.54 x10^6/uL (4.30-5.70) Hemoglobin 8.8 g/dL (13.0-17.5) Hematocrit 28.3 % (39.0-53.0) Mean Corpuscular Volume 80 fL (79-100) Mean Corpuscular Hemoglobin 25 pg (25-35) Mean Corpuscular Hemoglobin Concent 31 g/dL (31-37) Red Cell Distribution Width 16.9 % (11.5-14.5) Platelet Count 222 x10^3/uL (140-400) Neutrophils (%) (Auto) 76 % (31-73) Lymphocytes (%) (Auto) 13 % (24-48) Monocytes (%) (Auto) 10 % (0-9) Eosinophils (%) (Auto) 1 % (0-3) Basophils (%) (Auto) 1 % (0-3) Neutrophils # (Auto) 5.9 x10^3uL (1.8-7.7) Lymphocytes # (Auto) 1.0 x10^3/uL (1.0-4.8) Monocytes # (Auto) 0.8 x10^3/uL (0.0-1.1) Eosinophils # (Auto) 0.0 x10^3/uL (0.0-0.7) Basophils # (Auto) 0.1 x10^3/uL (0.0-0.2) Sodium Level 143 mmol/L (136-145) Potassium Level 3.4 mmol/L (3.5-5.1) Chloride Level 105 mmol/L (98-107) Carbon Dioxide Level 30 mmol/L (21-32) Anion Gap 8 (6-14) Blood Urea Nitrogen 50 mg/dL (8-26) Creatinine 2.0 mg/dL (0.7-1.3) Estimated GFR (Cockcroft-Gault) 31.6 BUN/Creatinine Ratio 25 (6-20) Glucose Level 92 mg/dL (70-99) Calcium Level 8.2 mg/dL (8.5-10.1) Total Bilirubin 1.4 mg/dL (0.2-1.0) Aspartate Amino Transf (AST/SGOT) 63 U/L (15-37) Alanine Aminotransferase (ALT/SGPT) 44 U/L (16-63) Alkaline Phosphatase 137 U/L (46-116) Troponin I Quantitative 0.142 ng/mL (0.000-0.055) Total Protein 5.6 g/dL (6.4-8.2) Albumin 2.5 g/dL (3.4-5.0) Albumin/Globulin Ratio 0.8 (1.0-1.7) Laboratory Tests Test 09/09/18 18:10 09/09/18 18:36 09/09/18 19:40 09/10/18 00:01 White Blood Count 6.7 x10^3/uL (4.0-11.0) Red Blood Count 3.82 x10^6/uL (4.30-5.70) Hemoglobin 9.3 g/dL (13.0-17.5) Hematocrit 30.9 % (39.0-53.0) Mean Corpuscular Volume 81 fL (79-100) Mean Corpuscular Hemoglobin 24 pg (25-35) Mean Corpuscular Hemoglobin Concent 30 g/dL (31-37) Red Cell Distribution Width 17.0 % (11.5-14.5) Platelet Count 260 x10^3/uL (140-400) Neutrophils (%) (Auto) 76 % (31-73) Lymphocytes (%) (Auto) 13 % (24-48) Monocytes (%) (Auto) 11 % (0-9) Eosinophils (%) (Auto) 0 % (0-3) Basophils (%) (Auto) 1 % (0-3) Neutrophils # (Auto) 5.0 x10^3uL (1.8-7.7) Lymphocytes # (Auto) 0.8 x10^3/uL (1.0-4.8) Monocytes # (Auto) 0.7 x10^3/uL (0.0-1.1) Eosinophils # (Auto) 0.0 x10^3/uL (0.0-0.7) Basophils # (Auto) 0.1 x10^3/uL (0.0-0.2) Prothrombin Time 17.2 SEC (11.7-14.0) Prothromb Time International Ratio 1.4 (0.8-1.1) Activated Partial Thromboplast Time 34 SEC (24-38) D-Dimer (Kristie) 2.46 ug/mlFEU (0.00-0.50) Sodium Level 142 mmol/L (136-145) Potassium Level 3.5 mmol/L (3.5-5.1) Chloride Level 103 mmol/L (98-107) Carbon Dioxide Level 28 mmol/L (21-32) Anion Gap 11 (6-14) Blood Urea Nitrogen 55 mg/dL (8-26) Creatinine 2.4 mg/dL (0.7-1.3) Estimated GFR (Cockcroft-Gault) 25.6 BUN/Creatinine Ratio 23 (6-20) Glucose Level 94 mg/dL (70-99) Calcium Level 8.4 mg/dL (8.5-10.1) Total Bilirubin 1.8 mg/dL (0.2-1.0) Aspartate Amino Transf (AST/SGOT) 76 U/L (15-37) Alanine Aminotransferase (ALT/SGPT) 47 U/L (16-63) Alkaline Phosphatase 156 U/L (46-116) Troponin I Quantitative 0.123 ng/mL (0.000-0.055) 0.126 ng/mL (0.000-0.055) VB-Tna-V-Type Natriuretic Peptide 6062 pg/mL (0-449) Total Protein 6.7 g/dL (6.4-8.2) Albumin 2.8 g/dL (3.4-5.0) Albumin/Globulin Ratio 0.7 (1.0-1.7) Influenza Type A Antigen Negative (NEGATIVE) Influenza Type B Antigen Negative (NEGATIVE) Lactic Acid Level 2.0 mmol/L (0.4-2.0) Test 09/10/18 05:00 White Blood Count 7.8 x10^3/uL (4.0-11.0) Red Blood Count 3.54 x10^6/uL (4.30-5.70) Hemoglobin 8.8 g/dL (13.0-17.5) Hematocrit 28.3 % (39.0-53.0) Mean Corpuscular Volume 80 fL (79-100) Mean Corpuscular Hemoglobin 25 pg (25-35) Mean Corpuscular Hemoglobin Concent 31 g/dL (31-37) Red Cell Distribution Width 16.9 % (11.5-14.5) Platelet Count 222 x10^3/uL (140-400) Neutrophils (%) (Auto) 76 % (31-73) Lymphocytes (%) (Auto) 13 % (24-48) Monocytes (%) (Auto) 10 % (0-9) Eosinophils (%) (Auto) 1 % (0-3) Basophils (%) (Auto) 1 % (0-3) Neutrophils # (Auto) 5.9 x10^3uL (1.8-7.7) Lymphocytes # (Auto) 1.0 x10^3/uL (1.0-4.8) Monocytes # (Auto) 0.8 x10^3/uL (0.0-1.1) Eosinophils # (Auto) 0.0 x10^3/uL (0.0-0.7) Basophils # (Auto) 0.1 x10^3/uL (0.0-0.2) Sodium Level 143 mmol/L (136-145) Potassium Level 3.4 mmol/L (3.5-5.1) Chloride Level 105 mmol/L (98-107) Carbon Dioxide Level 30 mmol/L (21-32) Anion Gap 8 (6-14) Blood Urea Nitrogen 50 mg/dL (8-26) Creatinine 2.0 mg/dL (0.7-1.3) Estimated GFR (Cockcroft-Gault) 31.6 BUN/Creatinine Ratio 25 (6-20) Glucose Level 92 mg/dL (70-99) Calcium Level 8.2 mg/dL (8.5-10.1) Total Bilirubin 1.4 mg/dL (0.2-1.0) Aspartate Amino Transf (AST/SGOT) 63 U/L (15-37) Alanine Aminotransferase (ALT/SGPT) 44 U/L (16-63) Alkaline Phosphatase 137 U/L (46-116) Troponin I Quantitative 0.142 ng/mL (0.000-0.055) Total Protein 5.6 g/dL (6.4-8.2) Albumin 2.5 g/dL (3.4-5.0) Albumin/Globulin Ratio 0.8 (1.0-1.7) Medications Active Scripts Medications Dose Route/Sig Max Daily Dose Days Date Category Hydrochlorothiazide Tablet (Hydrochlorothiazide) 12.5 Mg Tablet 12.5 Mg PO DAILY 09/09/18 Reported Levothyroxine Sodium 50 Mcg Tablet 1 Tab PO DAILY 09/09/18 Reported Amiodarone Hcl 200 Mg Tablet 1 Tab PO DAILY 10/16/17 Reported [Tylenol Arthritis] PO PRN PRN 08/28/17 Reported Calcium + Vitamin D Tablet (Calcium Carbonate/Vitamin D3) 1 Each Tablet 1 Each PO BID 08/28/17 Reported Losartan-Hctz 50-12.5 Mg Tab (Losartan/Hydrochlorothiazide) 1 Each Tablet 1 Tab PO QHS 08/28/17 Reported Crestor (Rosuvastatin Calcium) 20 Mg Tablet 1 Tab PO 3X/WEEK 08/28/17 Reported Aspirin 81 Mg Tab.chew 1 Tab PO QHS 08/28/17 Reported Impression . FULL NOTE DICTATED AECOPD ABNORMAL CXR SEE ORDERS THANKS CHUY FAJARDO MD September 10, 2018 13:39
[2018-09-10] MEDS ORDERED: ALBUTEROL SULFATE 2.5 MG/3 ML NEBU. NEB PRN (13:45)
--- NOTE | 2018-09-10 13:50 | PDOC ---
Provider Note Provider Note patient seen and examined at [address] head- changes in the left frontal lobe which could be chronic, no shift neurology following MRI brain pending NANCY MCCOY MD September 10, 2018 13:50
--- NOTE | 2018-09-10 13:55 | PDOC2 ---
NEUROLOGY CONSULT Date of Admission Date of Admission DATE: 09/10/18 TIME: 13:43 Reason for Consult Reason for Consult: IMPRESSION: Acute/subacute left frontal lobe infarct? Left frontal lobe chronic SDH ? Metabolic encephalopathy. Lethargy. Hypoxia. Right middle lobe pulmonary infiltrate? Renal failure. PAFib. HTN. HLD. Bradycardia. Elevated Troponin. Anemia. RECOMMENDATIONS/PLAN: Life support in ICU. Brain MRI w/o contrast. ASA 81 mg daily, OK. Lab: see orders. Treat medical diseases. HISTORY OF THE PRESENT ILLNESS: This is an 88-year-old male patient who was brought to the ER of [facility] on 09/09/18 with multiple complaints as dyspnea on exertion, mental status changes, confusion, lethargy. Family stated that patient has been weak and confused for the last few days. He has history of atrial fibrillation for which he was cardioverted in the past. His HCT showed subacute infarct, small chronic subdural hematoma. He was admitted for further evaluation and treatment. Past Medical History Paroxysmal atrial fibrillation Hypertension Hyperlipidemia Hypothyroidism Past Surgical History Cataract extraction Polypectomy Family History Hypertension Social History Patient admitted to smoking cigarettes but denied any alcohol or drug use ALLERGY: NKDA MEDICATIONS: Refer to MAR REVIEW OF SYSTEMS: Constitutional: No malnutrition, weight loss, cachexia. Head: Unknown traumatic brain or head injury. Skin: No edema, or rash. Ear: No infection. Eyes: No vision loss or color blindness. Nose: No bleeding or purulent discharges. Hearing: No hearing decrease. Neck: No injury. Cardiac: PAFib, HTN, HLD. Pulmonary: SOB. GI: No GI ulcer, GI bleeding. Urinary/genital: UTI. Endocrinologic: Hypothyroidism. Skeletomuscular: Generalized weakness. Neurological: see HP. Psychiatric: Denies drug use/abuse. Otherwise, not [id number] review of systems. PHYSICAL EXAMINATION: General appearance is in subacute distress. HEENT: Normocephalic and nontraumatic. Eyes, nose, ears, and throat are unremarkable. Neck is supple. No lymphadenopathy. No crepitus. Cardiovascular: S1, S2, seemed regular rate and rhythm. Heart sounds remote. Pulmonary: Decreased to auscultation bilaterally. Abdomen: Bowel sounds are positive. Extremities: No rash, lesions, or edema. No restriction of range of motion NEUROLOGICAL EXAMINATION: Lethargic. Not oriented to time, place and person. PERRL. EOMI. CN: no acute focal findings. Muscle tone: mildly decreased. Muscle strength: Moves all extremities to stimuli. DTR: 1 Plantar reflex: Weak extensor response bilaterally Gait: Unable to walk at the present time. Sensory exam: Withdraw response to pain stimuli. Not able to access cerebellar signs. F-T-N test not performed due to not follow commands. Current Medications Current Medications Current Medications Albuterol/ Ipratropium (Duoneb) 3 ml STK-MED ONCE .ROUTE ; Start 09/09/18 at 18:09; Stop 09/09/18 at 18:10; Status DC Ondansetron HCl (Zofran) 4 mg PRN Q8HRS PRN IV NAUSEA/VOMITING 1ST CHOICE; Start 09/09/18 at 21:00; Stop 09/10/18 at 20:59 Morphine Sulfate (Morphine Sulfate) 2 mg PRN Q2HR PRN IV SEVERE PAIN; Start 09/09/18 at 21:00; Stop 09/10/18 at 20:59 Acetaminophen (Tylenol) 650 mg PRN Q4HRS PRN PO FEVER; Start 09/09/18 at 21:00; Stop 09/10/18 at 20:59 Hydrochlorothiazide (Microzide) 12.5 mg DAILY PO Last administered on 09/10/18at 11:08; Start 09/10/18 at 11:00 Aspirin (Children'S Aspirin) 81 mg QHS PO ; Start 09/10/18 at 21:00 Levothyroxine Sodium (Synthroid) 50 mcg DAILY06 PO ; Start 09/11/18 at 06:00 Methylprednisolone Sodium Succinate (SOLU-Medrol 125MG VIAL) 60 mg BID IV ; Start 09/10/18 at 14:00 Albuterol Sulfate (Ventolin Neb Soln) 2.5 mg TID NEB ; Start 09/10/18 at 14:00 Albuterol Sulfate (Ventolin Neb Soln) 2.5 mg PRN Q2HR PRN NEB DYSPNEA; Start 09/10/18 at 13:45; Status UNV Active Scripts Active Reported Hydrochlorothiazide Tablet (Hydrochlorothiazide) 12.5 Mg Tablet 12.5 Mg PO DAILY Levothyroxine Sodium 50 Mcg Tablet 1 Tab PO DAILY Amiodarone Hcl 200 Mg Tablet 1 Tab PO DAILY [Tylenol Arthritis] PO PRN PRN Calcium + Vitamin D Tablet (Calcium Carbonate/Vitamin D3) 1 Each Tablet 1 Each PO BID Losartan-Hctz 50-12.5 Mg Tab (Losartan/Hydrochlorothiazide) 1 Each Tablet 1 Tab PO QHS Crestor (Rosuvastatin Calcium) 20 Mg Tablet 1 Tab PO 3X/WEEK Aspirin 81 Mg Tab.chew 1 Tab PO QHS Allergies Allergies: Allergies Coded Allergies Type Severity Reaction Last Updated Verified No Known Drug Allergies 10/19/17 No ROS Review of System The patient denies any associated fevers, chills, headache, ear pain, rhinorrhea, sore throat, stiff neck, productive cough, chest pain, shortness of breath, back or flank pain, abdominal pain, nausea, vomiting, diarrhea, constipation, dysuria, rash, numbness, weakness, tingling, incontinence, difficulty ambulating, or diaphoresis. Physical Exam Physical Exam General: Well developed, well nourished, no acute distress, well appearing HEENT: Pupils equally round and reactive to light, EOMI, no discharge, normal conjunctiva Neck: Supple, no nuchal rigidity, no JVD, trachea midline, no tenderness Cardiac: RRR, no murmurs, no gallops, no rubs Chest/Lungs: CTAB, no wheeze, no rhonchi, no crackles Abdomen: soft, non-distended, no guarding, no peritoneal signs, non-tender Back: No tenderness Extremities: no edema, pulses intact, non-tender,capillary refill <3 sec bilateral upper and lower extremities, Neuro: Alert and oriented x 4, no focal deficits, normal speech Vitals Vitals: Vital Signs Date Time Temp Pulse Resp B/P (MAP) Pulse Ox O2 Delivery O2 Flow Rate FiO2 09/10/18 13:00 42 15 155/68 (97) 97 Nasal Cannula 3.0 09/10/18 12:00 97.8 97.8 Labs Labs Laboratory Tests Test 09/09/18 18:10 09/09/18 18:36 09/09/18 19:40 09/10/18 00:01 White Blood Count 6.7 x10^3/uL (4.0-11.0) Red Blood Count 3.82 x10^6/uL (4.30-5.70) Hemoglobin 9.3 g/dL (13.0-17.5) Hematocrit 30.9 % (39.0-53.0) Mean Corpuscular Volume 81 fL (79-100) Mean Corpuscular Hemoglobin 24 pg (25-35) Mean Corpuscular Hemoglobin Concent 30 g/dL (31-37) Red Cell Distribution Width 17.0 % (11.5-14.5) Platelet Count 260 x10^3/uL (140-400) Neutrophils (%) (Auto) 76 % (31-73) Lymphocytes (%) (Auto) 13 % (24-48) Monocytes (%) (Auto) 11 % (0-9) Eosinophils (%) (Auto) 0 % (0-3) Basophils (%) (Auto) 1 % (0-3) Neutrophils # (Auto) 5.0 x10^3uL (1.8-7.7) Lymphocytes # (Auto) 0.8 x10^3/uL (1.0-4.8) Monocytes # (Auto) 0.7 x10^3/uL (0.0-1.1) Eosinophils # (Auto) 0.0 x10^3/uL (0.0-0.7) Basophils # (Auto) 0.1 x10^3/uL (0.0-0.2) Prothrombin Time 17.2 SEC (11.7-14.0) Prothromb Time International Ratio 1.4 (0.8-1.1) Activated Partial Thromboplast Time 34 SEC (24-38) D-Dimer (Kristie) 2.46 ug/mlFEU (0.00-0.50) Sodium Level 142 mmol/L (136-145) Potassium Level 3.5 mmol/L (3.5-5.1) Chloride Level 103 mmol/L (98-107) Carbon Dioxide Level 28 mmol/L (21-32) Anion Gap 11 (6-14) Blood Urea Nitrogen 55 mg/dL (8-26) Creatinine 2.4 mg/dL (0.7-1.3) Estimated GFR (Cockcroft-Gault) 25.6 BUN/Creatinine Ratio 23 (6-20) Glucose Level 94 mg/dL (70-99) Calcium Level 8.4 mg/dL (8.5-10.1) Total Bilirubin 1.8 mg/dL (0.2-1.0) Aspartate Amino Transf (AST/SGOT) 76 U/L (15-37) Alanine Aminotransferase (ALT/SGPT) 47 U/L (16-63) Alkaline Phosphatase 156 U/L (46-116) Troponin I Quantitative 0.123 ng/mL (0.000-0.055) 0.126 ng/mL (0.000-0.055) JW-Fcg-N-Type Natriuretic Peptide 6062 pg/mL (0-449) Total Protein 6.7 g/dL (6.4-8.2) Albumin 2.8 g/dL (3.4-5.0) Albumin/Globulin Ratio 0.7 (1.0-1.7) Influenza Type A Antigen Negative (NEGATIVE) Influenza Type B Antigen Negative (NEGATIVE) Lactic Acid Level 2.0 mmol/L (0.4-2.0) Test 09/10/18 05:00 White Blood Count 7.8 x10^3/uL (4.0-11.0) Red Blood Count 3.54 x10^6/uL (4.30-5.70) Hemoglobin 8.8 g/dL (13.0-17.5) Hematocrit 28.3 % (39.0-53.0) Mean Corpuscular Volume 80 fL (79-100) Mean Corpuscular Hemoglobin 25 pg (25-35) Mean Corpuscular Hemoglobin Concent 31 g/dL (31-37) Red Cell Distribution Width 16.9 % (11.5-14.5) Platelet Count 222 x10^3/uL (140-400) Neutrophils (%) (Auto) 76 % (31-73) Lymphocytes (%) (Auto) 13 % (24-48) Monocytes (%) (Auto) 10 % (0-9) Eosinophils (%) (Auto) 1 % (0-3) Basophils (%) (Auto) 1 % (0-3) Neutrophils # (Auto) 5.9 x10^3uL (1.8-7.7) Lymphocytes # (Auto) 1.0 x10^3/uL (1.0-4.8) Monocytes # (Auto) 0.8 x10^3/uL (0.0-1.1) Eosinophils # (Auto) 0.0 x10^3/uL (0.0-0.7) Basophils # (Auto) 0.1 x10^3/uL (0.0-0.2) Sodium Level 143 mmol/L (136-145) Potassium Level 3.4 mmol/L (3.5-5.1) Chloride Level 105 mmol/L (98-107) Carbon Dioxide Level 30 mmol/L (21-32) Anion Gap 8 (6-14) Blood Urea Nitrogen 50 mg/dL (8-26) Creatinine 2.0 mg/dL (0.7-1.3) Estimated GFR (Cockcroft-Gault) 31.6 BUN/Creatinine Ratio 25 (6-20) Glucose Level 92 mg/dL (70-99) Calcium Level 8.2 mg/dL (8.5-10.1) Total Bilirubin 1.4 mg/dL (0.2-1.0) Aspartate Amino Transf (AST/SGOT) 63 U/L (15-37) Alanine Aminotransferase (ALT/SGPT) 44 U/L (16-63) Alkaline Phosphatase 137 U/L (46-116) Troponin I Quantitative 0.142 ng/mL (0.000-0.055) Total Protein 5.6 g/dL (6.4-8.2) Albumin 2.5 g/dL (3.4-5.0) Albumin/Globulin Ratio 0.8 (1.0-1.7) Laboratory Tests Test 09/09/18 18:10 09/09/18 18:36 09/09/18 19:40 09/10/18 00:01 White Blood Count 6.7 x10^3/uL (4.0-11.0) Red Blood Count 3.82 x10^6/uL (4.30-5.70) Hemoglobin 9.3 g/dL (13.0-17.5) Hematocrit 30.9 % (39.0-53.0) Mean Corpuscular Volume 81 fL (79-100) Mean Corpuscular Hemoglobin 24 pg (25-35) Mean Corpuscular Hemoglobin Concent 30 g/dL (31-37) Red Cell Distribution Width 17.0 % (11.5-14.5) Platelet Count 260 x10^3/uL (140-400) Neutrophils (%) (Auto) 76 % (31-73) Lymphocytes (%) (Auto) 13 % (24-48) Monocytes (%) (Auto) 11 % (0-9) Eosinophils (%) (Auto) 0 % (0-3) Basophils (%) (Auto) 1 % (0-3) Neutrophils # (Auto) 5.0 x10^3uL (1.8-7.7) Lymphocytes # (Auto) 0.8 x10^3/uL (1.0-4.8) Monocytes # (Auto) 0.7 x10^3/uL (0.0-1.1) Eosinophils # (Auto) 0.0 x10^3/uL (0.0-0.7) Basophils # (Auto) 0.1 x10^3/uL (0.0-0.2) Prothrombin Time 17.2 SEC (11.7-14.0) Prothromb Time International Ratio 1.4 (0.8-1.1) Activated Partial Thromboplast Time 34 SEC (24-38) D-Dimer (Kristie) 2.46 ug/mlFEU (0.00-0.50) Sodium Level 142 mmol/L (136-145) Potassium Level 3.5 mmol/L (3.5-5.1) Chloride Level 103 mmol/L (98-107) Carbon Dioxide Level 28 mmol/L (21-32) Anion Gap 11 (6-14) Blood Urea Nitrogen 55 mg/dL (8-26) Creatinine 2.4 mg/dL (0.7-1.3) Estimated GFR (Cockcroft-Gault) 25.6 BUN/Creatinine Ratio 23 (6-20) Glucose Level 94 mg/dL (70-99) Calcium Level 8.4 mg/dL (8.5-10.1) Total Bilirubin 1.8 mg/dL (0.2-1.0) Aspartate Amino Transf (AST/SGOT) 76 U/L (15-37) Alanine Aminotransferase (ALT/SGPT) 47 U/L (16-63) Alkaline Phosphatase 156 U/L (46-116) Troponin I Quantitative 0.123 ng/mL (0.000-0.055) 0.126 ng/mL (0.000-0.055) CG-Rjw-D-Type Natriuretic Peptide 6062 pg/mL (0-449) Total Protein 6.7 g/dL (6.4-8.2) Albumin 2.8 g/dL (3.4-5.0) Albumin/Globulin Ratio 0.7 (1.0-1.7) Influenza Type A Antigen Negative (NEGATIVE) Influenza Type B Antigen Negative (NEGATIVE) Lactic Acid Level 2.0 mmol/L (0.4-2.0) Test 09/10/18 05:00 White Blood Count 7.8 x10^3/uL (4.0-11.0) Red Blood Count 3.54 x10^6/uL (4.30-5.70) Hemoglobin 8.8 g/dL (13.0-17.5) Hematocrit 28.3 % (39.0-53.0) Mean Corpuscular Volume 80 fL (79-100) Mean Corpuscular Hemoglobin 25 pg (25-35) Mean Corpuscular Hemoglobin Concent 31 g/dL (31-37) Red Cell Distribution Width 16.9 % (11.5-14.5) Platelet Count 222 x10^3/uL (140-400) Neutrophils (%) (Auto) 76 % (31-73) Lymphocytes (%) (Auto) 13 % (24-48) Monocytes (%) (Auto) 10 % (0-9) Eosinophils (%) (Auto) 1 % (0-3) Basophils (%) (Auto) 1 % (0-3) Neutrophils # (Auto) 5.9 x10^3uL (1.8-7.7) Lymphocytes # (Auto) 1.0 x10^3/uL (1.0-4.8) Monocytes # (Auto) 0.8 x10^3/uL (0.0-1.1) Eosinophils # (Auto) 0.0 x10^3/uL (0.0-0.7) Basophils # (Auto) 0.1 x10^3/uL (0.0-0.2) Sodium Level 143 mmol/L (136-145) Potassium Level 3.4 mmol/L (3.5-5.1) Chloride Level 105 mmol/L (98-107) Carbon Dioxide Level 30 mmol/L (21-32) Anion Gap 8 (6-14) Blood Urea Nitrogen 50 mg/dL (8-26) Creatinine 2.0 mg/dL (0.7-1.3) Estimated GFR (Cockcroft-Gault) 31.6 BUN/Creatinine Ratio 25 (6-20) Glucose Level 92 mg/dL (70-99) Calcium Level 8.2 mg/dL (8.5-10.1) Total Bilirubin 1.4 mg/dL (0.2-1.0) Aspartate Amino Transf (AST/SGOT) 63 U/L (15-37) Alanine Aminotransferase (ALT/SGPT) 44 U/L (16-63) Alkaline Phosphatase 137 U/L (46-116) Troponin I Quantitative 0.142 ng/mL (0.000-0.055) Total Protein 5.6 g/dL (6.4-8.2) Albumin 2.5 g/dL (3.4-5.0) Albumin/Globulin Ratio 0.8 (1.0-1.7) CORNELIUS CHAVEZ MD September 10, 2018 13:55
[2018-09-10] MEDS: methylPREDNISolone SOD SUCC PF 125 MG/2 ML VIAL. IV SCH ×2 (14:01→21:35)
--- NOTE | 2018-09-10 15:55 | RAD ---
MRI of the brain without contrast 09/10/2018 Clinical History: Mental status changes. Low-attenuation area seen within the left frontal lobe on CT scan of the head. Technique: Unenhanced T1-weighted sagittal and axial, T2-weighted sagittal, axial and coronal and FLAIR, gradient echo and diffusion-weighted axial images of the brain were obtained. Findings: Comparison is made to patient's CT scan of the head dated 09/09/2018. Images through the study are degraded by patient motion. There is generalized parenchymal atrophy. Patchy, confluent and multiple focal areas of increased signal intensity are seen within the periventricular and subcortical white matter of both cerebral hemispheres along with the valentina on the FLAIR and T2-weighted images consistent with areas of extensive small vessel ischemic disease. Old areas of infarction are seen involving the right cerebellar hemisphere. These measure 3 mm to 1.5 cm in size. A 7 mm old area of lacunar infarction is seen involving the left thalamus. An area of encephalomalacia is seen involving the left frontal lobe. This corresponds to the abnormality seen on the patient's CT scan. It measures 3.2 cm in size. No acute parenchymal abnormality is seen. No extra-axial fluid collection is seen. There is no MRI evidence of acute ischemia/infarction. Mild to moderate mucosal thickening is seen throughout the paranasal sinuses. There are small bilateral mastoid effusions. Normal flow voids are seen within the major vascular structures surrounding the brain parenchyma. Impression: No acute parenchymal abnormality is seen. Electronically signed by: Tio Tucker MD (09/10/2018 3:52 PM) [id number]
[2018-09-10] MEDS: ALBUTEROL SULFATE 2.5 MG/3 ML NEBU. NEB SCH ×2 (15:58→19:37)
[2018-09-10 17:12] LABS: BILIRUBIN,URINE NEGATIVE (NEG); CLARITY,URINE CLEAR; COLOR,URINE YELLOW; NITRITE,URINE NEGATIVE (NEG); PROTEIN,URINE 30 mg/dL (NEG-TRACE)
[2018-09-10 17:25] LABS: BACTERIA,URINE 0 /HPF (0-FEW); GRANULAR CASTS,URINE OCCASIONAL /HPF; HYALINE CASTS, URINE OCCASIONAL /HPF; RBC,URINE 0 /HPF (0-2); SQUAMOUS EPITHELIAL CELL,UR OCC /LPF
[2018-09-10 17:38] LABS: BASE EXCESS ABG 0 mmol/L (-3-3); HCO3 ABG 27 mmol/L (21-28); PCO2 ABG 56 mmHg (35-46); PO2 ABG 82 mmHg (65-108); SAT O2 ABG 94 % (92-99)
[2018-09-10] MEDS: ASPIRIN CHEWABLE 81 MG TABLET. PO SCH (21:35)
--- NOTE | 2018-09-10 22:36 | CONS ---
DATE OF CONSULTATION: 09/10/2018 ATTENDING PHYSICIAN: Dr. Us. REASON FOR CONSULTATION: The patient seen in pulmonary consultation at the request of Dr. Us for hypoxemia, abnormal x-ray. HISTORY OF PRESENT ILLNESS: The patient is an 88-year-old that is unable to provide any. No one is at the bedside right now. I reviewed his current documentation. He was brought by family members concerned about his mental status change. He was also found to be hypoxic and short of air. He is currently on 3 liters. A chest x-ray was reviewed, which revealed questionable right middle lobe atelectasis. I was asked to see him in consultation. The patient does awaken and reports no to being short of breath, yes to cough productive of some mucus, no hemoptysis. PAST MEDICAL HISTORY: Otherwise, remarkable for paroxysmal AFib, hypertension, hyperlipidemia, hypothyroidism, chronic kidney disease. He has had previous subacute CVA, chronic subdural hematoma, renal insufficiency. PAST SURGICAL HISTORY: Status post cataract extraction, polypectomy. FAMILY HISTORY: Hypertension. SOCIAL HISTORY: He does smoke. REVIEW OF SYSTEMS: Unobtainable secondary to as indicated in the history of present illness, otherwise other systems were not obtained as a consequence of the patient's decreased level of consciousness and questionable dementia. CURRENT MEDICATIONS: List was reviewed. ALLERGIES: No known drug allergies. PHYSICAL EXAMINATION: VITAL SIGNS: The patient was in no respiratory distress, currently on 3 liters of oxygen supplementation. HEENT: Eyes, the sclerae were nonicteric. NECK: Jugular venous distention was not elevated. No lymphadenopathy. CHEST: Full expansion. LUNGS: Coarse breath sounds, no wheezes. CARDIOVASCULAR: Regular rate and rhythm with S1, S2, no S3. ABDOMEN: Soft, nontender, nondistended. EXTREMITIES: No clubbing, cyanosis, some edema. NEUROLOGIC: The patient was sleepy, but arousable. Moved all extremities. A detailed neuro exam was not performed. LABORATORY DATA: Reviewed. White count was noted. Hemoglobin and hematocrit were noted. Electrolytes were noted. BUN and creatinine were elevated. Albumin was low. Chest x-ray was reviewed as indicated above. IMPRESSION: 1. Acute hypoxemic respiratory failure. 2. Chronic obstructive pulmonary disease. 3. Aonsy-ha-yloituw renal insufficiency. 4. Njrqo-kz-kxhsgfz encephalopathy, suspect multifactorial. 5. Paroxysmal atrial fibrillation status post cardioversion in the past. 6. Hypothyroidism. PLAN: 1. From a pulmonary standpoint of view, I recommend continue oxygen supplementation. 2. Nebulized treatments. 3. Steroids. 4. No antibiotics at this time. 5. Follow other consultants' input. I do appreciate the privilege in sharing in the patient's care. CHUY FAJARDO MD DR: DIANE/alexia JOB#: [id number] / [id number]
[2018-09-11] VITALS (24 sets, daily range): BP systolic 146–192; BP diastolic 50–85
[2018-09-11] MEDS: LEVOTHYROXINE 50 MCG TABLET PO SCH (06:00)
--- NOTE | 2018-09-11 06:45 | PDOC ---
PULMONARY PROGRESS NOTES Subjective on 02, confused, Vitals Vital Signs Date Time Temp Pulse Resp B/P (MAP) Pulse Ox O2 Delivery O2 Flow Rate FiO2 09/11/18 00:00 Nasal Cannula 4.0 09/10/18 20:00 97.6 48 19 147/69 (95) 91 97.6 Comments ros as mentioned as above discussed w rn, rt, other sys otherwise neg General: Confused HEENT: Other (nc at perrl nose clear neck no lad, no thyromegaly) Lungs: Crackles Cardiovascular: S1, S2 Abdomen: Soft, Non-tender, Other (no mass) Extremities: No Edema Skin: Warm Labs Laboratory Tests Test 09/09/18 18:10 09/09/18 18:36 09/09/18 19:40 09/10/18 00:01 White Blood Count 6.7 x10^3/uL (4.0-11.0) Red Blood Count 3.82 x10^6/uL (4.30-5.70) Hemoglobin 9.3 g/dL (13.0-17.5) Hematocrit 30.9 % (39.0-53.0) Mean Corpuscular Volume 81 fL (79-100) Mean Corpuscular Hemoglobin 24 pg (25-35) Mean Corpuscular Hemoglobin Concent 30 g/dL (31-37) Red Cell Distribution Width 17.0 % (11.5-14.5) Platelet Count 260 x10^3/uL (140-400) Neutrophils (%) (Auto) 76 % (31-73) Lymphocytes (%) (Auto) 13 % (24-48) Monocytes (%) (Auto) 11 % (0-9) Eosinophils (%) (Auto) 0 % (0-3) Basophils (%) (Auto) 1 % (0-3) Neutrophils # (Auto) 5.0 x10^3uL (1.8-7.7) Lymphocytes # (Auto) 0.8 x10^3/uL (1.0-4.8) Monocytes # (Auto) 0.7 x10^3/uL (0.0-1.1) Eosinophils # (Auto) 0.0 x10^3/uL (0.0-0.7) Basophils # (Auto) 0.1 x10^3/uL (0.0-0.2) Prothrombin Time 17.2 SEC (11.7-14.0) Prothromb Time International Ratio 1.4 (0.8-1.1) Activated Partial Thromboplast Time 34 SEC (24-38) D-Dimer (Kristie) 2.46 ug/mlFEU (0.00-0.50) Sodium Level 142 mmol/L (136-145) Potassium Level 3.5 mmol/L (3.5-5.1) Chloride Level 103 mmol/L (98-107) Carbon Dioxide Level 28 mmol/L (21-32) Anion Gap 11 (6-14) Blood Urea Nitrogen 55 mg/dL (8-26) Creatinine 2.4 mg/dL (0.7-1.3) Estimated GFR (Cockcroft-Gault) 25.6 BUN/Creatinine Ratio 23 (6-20) Glucose Level 94 mg/dL (70-99) Calcium Level 8.4 mg/dL (8.5-10.1) Total Bilirubin 1.8 mg/dL (0.2-1.0) Aspartate Amino Transf (AST/SGOT) 76 U/L (15-37) Alanine Aminotransferase (ALT/SGPT) 47 U/L (16-63) Alkaline Phosphatase 156 U/L (46-116) Troponin I Quantitative 0.123 ng/mL (0.000-0.055) 0.126 ng/mL (0.000-0.055) NH-Cjv-C-Type Natriuretic Peptide 6062 pg/mL (0-449) Total Protein 6.7 g/dL (6.4-8.2) Albumin 2.8 g/dL (3.4-5.0) Albumin/Globulin Ratio 0.7 (1.0-1.7) Influenza Type A Antigen Negative (NEGATIVE) Influenza Type B Antigen Negative (NEGATIVE) Lactic Acid Level 2.0 mmol/L (0.4-2.0) Test 09/10/18 05:00 09/10/18 16:45 09/10/18 17:15 09/11/18 04:30 White Blood Count 7.8 x10^3/uL (4.0-11.0) Red Blood Count 3.54 x10^6/uL (4.30-5.70) Hemoglobin 8.8 g/dL (13.0-17.5) Hematocrit 28.3 % (39.0-53.0) Mean Corpuscular Volume 80 fL (79-100) Mean Corpuscular Hemoglobin 25 pg (25-35) Mean Corpuscular Hemoglobin Concent 31 g/dL (31-37) Red Cell Distribution Width 16.9 % (11.5-14.5) Platelet Count 222 x10^3/uL (140-400) Neutrophils (%) (Auto) 76 % (31-73) Lymphocytes (%) (Auto) 13 % (24-48) Monocytes (%) (Auto) 10 % (0-9) Eosinophils (%) (Auto) 1 % (0-3) Basophils (%) (Auto) 1 % (0-3) Neutrophils # (Auto) 5.9 x10^3uL (1.8-7.7) Lymphocytes # (Auto) 1.0 x10^3/uL (1.0-4.8) Monocytes # (Auto) 0.8 x10^3/uL (0.0-1.1) Eosinophils # (Auto) 0.0 x10^3/uL (0.0-0.7) Basophils # (Auto) 0.1 x10^3/uL (0.0-0.2) Sodium Level 143 mmol/L (136-145) Potassium Level 3.4 mmol/L (3.5-5.1) Chloride Level 105 mmol/L (98-107) Carbon Dioxide Level 30 mmol/L (21-32) Anion Gap 8 (6-14) Blood Urea Nitrogen 50 mg/dL (8-26) Creatinine 2.0 mg/dL (0.7-1.3) Estimated GFR (Cockcroft-Gault) 31.6 BUN/Creatinine Ratio 25 (6-20) Glucose Level 92 mg/dL (70-99) Calcium Level 8.2 mg/dL (8.5-10.1) Total Bilirubin 1.4 mg/dL (0.2-1.0) Aspartate Amino Transf (AST/SGOT) 63 U/L (15-37) Alanine Aminotransferase (ALT/SGPT) 44 U/L (16-63) Alkaline Phosphatase 137 U/L (46-116) Troponin I Quantitative 0.142 ng/mL (0.000-0.055) Total Protein 5.6 g/dL (6.4-8.2) Albumin 2.5 g/dL (3.4-5.0) Albumin/Globulin Ratio 0.8 (1.0-1.7) Urine Color Yellow Urine Clarity Clear Urine pH 5.0 Urine Specific [place] 1.025 Urine Protein 30 mg/dL (NEG-TRACE) Urine Glucose (UA) Negative mg/dL (NEG) Urine Ketones (Stick) Negative mg/dL (NEG) Urine Blood Negative (NEG) Urine Nitrite Negative (NEG) Urine Bilirubin Negative (NEG) Urine Urobilinogen Dipstick 1.0 mg/dL (0.2 mg/dL) Urine Leukocyte Esterase Negative (NEG) Urine RBC 0 /HPF (0-2) Urine WBC 1-4 /HPF (0-4) Urine Squamous Epithelial Cells Occ /LPF Urine Bacteria 0 /HPF (0-FEW) Urine Hyaline Casts Occasional /HPF Urine Granular Casts Occasional /HPF Urine Mucus Mod /LPF O2 Saturation 94 % (92-99) Arterial Blood pH 7.30 (7.35-7.45) Arterial Blood pCO2 at Patient Temp 56 mmHg (35-46) Arterial Blood pO2 at Patient Temp 82 mmHg (65-108) Arterial Blood HCO3 27 mmol/L (21-28) Arterial Blood Base Excess 0 mmol/L (-3-3) FiO2 3 lpm nc Triglycerides Level 71 mg/dL (0-150) Cholesterol Level 118 mg/dL (0-200) LDL Cholesterol, Calculated 64 mg/dL (0-100) VLDL Cholesterol, Calculated 14 mg/dL (0-40) Non-HDL Cholesterol Calculated 78 mg/dL (0-129) HDL Cholesterol 40 mg/dL (40-60) Cholesterol/HDL Ratio 3.0 Laboratory Tests Test 09/10/18 16:45 09/10/18 17:15 09/11/18 04:30 Urine Color Yellow Urine Clarity Clear Urine pH 5.0 Urine Specific [place] 1.025 Urine Protein 30 mg/dL (NEG-TRACE) Urine Glucose (UA) Negative mg/dL (NEG) Urine Ketones (Stick) Negative mg/dL (NEG) Urine Blood Negative (NEG) Urine Nitrite Negative (NEG) Urine Bilirubin Negative (NEG) Urine Urobilinogen Dipstick 1.0 mg/dL (0.2 mg/dL) Urine Leukocyte Esterase Negative (NEG) Urine RBC 0 /HPF (0-2) Urine WBC 1-4 /HPF (0-4) Urine Squamous Epithelial Cells Occ /LPF Urine Bacteria 0 /HPF (0-FEW) Urine Hyaline Casts Occasional /HPF Urine Granular Casts Occasional /HPF Urine Mucus Mod /LPF O2 Saturation 94 % (92-99) Arterial Blood pH 7.30 (7.35-7.45) Arterial Blood pCO2 at Patient Temp 56 mmHg (35-46) Arterial Blood pO2 at Patient Temp 82 mmHg (65-108) Arterial Blood HCO3 27 mmol/L (21-28) Arterial Blood Base Excess 0 mmol/L (-3-3) FiO2 3 lpm nc Triglycerides Level 71 mg/dL (0-150) Cholesterol Level 118 mg/dL (0-200) LDL Cholesterol, Calculated 64 mg/dL (0-100) VLDL Cholesterol, Calculated 14 mg/dL (0-40) Non-HDL Cholesterol Calculated 78 mg/dL (0-129) HDL Cholesterol 40 mg/dL (40-60) Cholesterol/HDL Ratio 3.0 Medications Active Scripts Medications Dose Route/Sig Max Daily Dose Days Date Category Hydrochlorothiazide Tablet (Hydrochlorothiazide) 12.5 Mg Tablet 12.5 Mg PO DAILY 09/09/18 Reported Levothyroxine Sodium 50 Mcg Tablet 1 Tab PO DAILY 09/09/18 Reported Amiodarone Hcl 200 Mg Tablet 1 Tab PO DAILY 10/16/17 Reported [Tylenol Arthritis] PO PRN PRN 08/28/17 Reported Calcium + Vitamin D Tablet (Calcium Carbonate/Vitamin D3) 1 Each Tablet 1 Each PO BID 08/28/17 Reported Losartan-Hctz 50-12.5 Mg Tab (Losartan/Hydrochlorothiazide) 1 Each Tablet 1 Tab PO QHS 08/28/17 Reported Crestor (Rosuvastatin Calcium) 20 Mg Tablet 1 Tab PO 3X/WEEK 08/28/17 Reported Aspirin 81 Mg Tab.chew 1 Tab PO QHS 08/28/17 Reported Comments cxr ? atelectasis infilt Impression . MPRESSION: 1. Acute hypoxemic respiratory failure. 2. Chronic obstructive pulmonary disease. 3. Oejoo-zv-htjevnt renal insufficiency. 4. Wncot-dj-osdxena encephalopathy, suspect multifactorial. 5. Paroxysmal atrial fibrillation status post cardioversion in the past. CHB 6. Hypothyroidism. Plan . PLAN: 1. From a pulmonary standpoint of view, I recommend continue oxygen supplementation. confused, will do abg, reviewed, start bipap 2. Nebulized treatments, change to duo neb qid 3. Steroids. 4. No antibiotics at this time. 5. Follow other consultants' input. 6. cxr discussed w rn, rt, cardiology NATE ZAPATA MD September 11, 2018 06:45
--- NOTE | 2018-09-11 07:35 | RAD ---
Carotid ultrasound 09/10/2018. Reason for exam: Altered mental status. CVA. Color Doppler and spectral waveform analysis was performed along with real-time grayscale technique. Carotid stenoses were graded per NASCETcriteria. Velocity measurements were obtained in centimeters per second. FINDINGS: There is some intimal thickening on each side with mild plaque in the carotid bulbs. Flow in the vertebral arteries is antegrade. The following velocity measurements were obtained: CCA peak: Right, 88, left, 96. ICA peak: Right, 122, left, 174. ECA peak: Right, 94, left, 139. IMPRESSION: Some plaque is present bilaterally. There is some velocity elevation in the mid left ICA suggesting 50-69 percent narrowing. Electronically signed by: Ishaan Rushing Jr., MD (09/11/2018 7:32 AM) [id number]
[2018-09-11] MEDS: ALBUTEROL SULFATE 2.5 MG/3 ML NEBU. NEB SCH ×3 (07:38→19:55)
[2018-09-11 07:49] LABS: BASE EXCESS ABG 4 mmol/L (-3-3); HCO3 ABG 33 mmol/L (21-28); PO2 ABG 74 mmHg (65-108); SAT O2 ABG 92 % (92-99)
--- NOTE | 2018-09-11 07:50 | NUR ---
ABG results pH7.252, pCO@ 75.8, pO2 74.2, HCO3 32.6, BE 3.9 on 4L/NC, Dr Nazario paged, Dr Nazario returned page notified of ABG results, orders received to start patient on BiPap I/E 03/10, Rate 12, titrate FiO2 to keep O2 saturation no greater than 90%, Keep HOB elevated, ABG one hour after starting BiPap, call if abnormal. See orders.
[2018-09-11 07:53] LABS: FIO2 ABG 36; PCO2 ABG 76 mmHg (35-46)
--- NOTE | 2018-09-11 08:33 | PDOC ---
CARDIOLOGY PROGRESS NOTE SUBJECTIVE: No acute events overnight. Patient is somnolent and not easily aroused. MRI brain negative for acute pathology. OBJECTIVE: Vital SIgns: Vital Signs Date Time Temp Pulse Resp B/P (MAP) Pulse Ox O2 Delivery O2 Flow Rate FiO2 09/11/18 07:30 95 Nasal Cannula 4.0 09/10/18 20:00 97.6 48 19 147/69 (95) 97.6 I & O Intake and Output 09/11/18 06:59 Intake Total 1038 ml Output Total 755 ml Balance 283 ml Intake Oral 1038 ml Output Urine Total 755 ml # Bowel Movements 1 Objective: He is somnolent and on BiPAP. Heart tones irregular, no m/r/g Bilateral rhonchi No edema. Soft abd Right thigh bruising noted. CURRENT MEDICATIONS: Current Medications Medications (Trade) Dose Ordered Sig/Jose Start Time Stop Time Status Last Admin Dose Admin Acetaminophen (Tylenol) 650 mg PRN Q4HRS PRN 09/09/18 21:00 09/10/18 20:59 DC Albuterol Sulfate (Ventolin Neb Soln) 2.5 mg PRN Q2HR PRN 09/10/18 13:45 Albuterol/ Ipratropium (Duoneb) 3 ml STK-MED ONCE 09/09/18 18:09 09/09/18 18:10 DC Aspirin (Children'S Aspirin) 81 mg QHS 09/10/18 21:00 09/10/18 21:35 81 MG Hydrochlorothiazide (Microzide) 12.5 mg DAILY 09/10/18 11:00 09/10/18 11:08 12.5 MG Levothyroxine Sodium (Synthroid) 50 mcg DAILY06 09/11/18 06:00 Methylprednisolone Sodium Succinate (SOLU-Medrol 125MG VIAL) 60 mg BID 09/10/18 14:00 09/10/18 21:35 60 MG Morphine Sulfate (Morphine Sulfate) 2 mg PRN Q2HR PRN 09/09/18 21:00 09/10/18 20:59 DC Ondansetron HCl (Zofran) 4 mg PRN Q8HRS PRN 09/09/18 21:00 09/10/18 20:59 DC DIAGNOSTIC TESTING: Cr 2.0, improved. Hgb 8.8 PCO2 of 76 Trop 0.12 Tele with high grade avb MRI brain negative for acute pathology ASSESSMENT: 1. high grade AVB/Falls 2. HTN 3. JAY JAY - improving 4. Chronic small vessel ischemic disease. 5. Acute on chronic hypercapneic resp failure - likely due to above PLAN: 1. Given negative brain MRI, this may related to his high grade AVB. He nonetheless has excellent perfusion pressures with MAP > 80, therefore, it is less likely that the hypercapneic failure is related to his CHB. 2. Will plan optimization of his resp status with Bipap, discuss goals of care with family and likely plan for pacemaker in next 24 to 48 hours. Thanks PRADEEP VIVAS MD September 11, 2018 08:33
[2018-09-11 08:43] LABS: FREE T4 0.64 ng/dL (0.76-1.46); THYROID STIM HORMONE (TSH) 7.153 uIU/mL (0.358-3.74)
[2018-09-11] MEDS: hydroCHLOROthiazide 12.5 MG CAPSULE PO SCH (09:00)
[2018-09-11] MEDS: methylPREDNISolone SOD SUCC PF 125 MG/2 ML VIAL. IV SCH ×2 (09:13→20:32)
[2018-09-11 09:55] LABS: BASE EXCESS ABG 4 mmol/L (-3-3); HCO3 ABG 32 mmol/L (21-28); PO2 ABG 86 mmHg (65-108); SAT O2 ABG 95 % (92-99)
[2018-09-11 09:58] LABS: FIO2 ABG 35; PCO2 ABG 66 mmHg (35-46)
--- NOTE | 2018-09-11 11:02 | PDOC ---
[employer] PROGRESS NOTE Chief Complaint Chief Complaint Stroke symptoms shortness of breath History of Present Illness History of Present Illness Patient seen and examined in the intensive care unit Discussed with RN and family Patient is currently on BiPAP 03/10 with 35% FiO2 and satting in the mid 90s Appears extremely ill Vitals Vitals Vital Signs Date Time Temp Pulse Resp B/P (MAP) Pulse Ox O2 Delivery O2 Flow Rate FiO2 09/11/18 10:00 40 15 181/57 (98) 96 BiPAP/CPAP 09/11/18 08:00 4.0 09/11/18 08:00 96.1 96.1 Physical Exam General: Alert, Oriented X3 Heart: Other (heart rate slightly irregular) Lungs: Crackles Abdomen: Soft Extremities: Other (1+ pitting pedal edema) Labs Labs: Laboratory Tests Test 09/10/18 16:45 09/10/18 17:15 09/11/18 04:30 09/11/18 07:30 Urine Color Yellow Urine Clarity Clear Urine pH 5.0 Urine Specific [place] 1.025 Urine Protein 30 mg/dL (NEG-TRACE) Urine Glucose (UA) Negative mg/dL (NEG) Urine Ketones (Stick) Negative mg/dL (NEG) Urine Blood Negative (NEG) Urine Nitrite Negative (NEG) Urine Bilirubin Negative (NEG) Urine Urobilinogen Dipstick 1.0 mg/dL (0.2 mg/dL) Urine Leukocyte Esterase Negative (NEG) Urine RBC 0 /HPF (0-2) Urine WBC 1-4 /HPF (0-4) Urine Squamous Epithelial Cells Occ /LPF Urine Bacteria 0 /HPF (0-FEW) Urine Hyaline Casts Occasional /HPF Urine Granular Casts Occasional /HPF Urine Mucus Mod /LPF O2 Saturation 94 % (92-99) 92 % (92-99) Arterial Blood pH 7.30 (7.35-7.45) 7.25 (7.35-7.45) Arterial Blood pCO2 at Patient Temp 56 mmHg (35-46) 76 mmHg (35-46) Arterial Blood pO2 at Patient Temp 82 mmHg (65-108) 74 mmHg (65-108) Arterial Blood HCO3 27 mmol/L (21-28) 33 mmol/L (21-28) Arterial Blood Base Excess 0 mmol/L (-3-3) 4 mmol/L (-3-3) FiO2 3 lpm nc 36 Triglycerides Level 71 mg/dL (0-150) Cholesterol Level 118 mg/dL (0-200) LDL Cholesterol, Calculated 64 mg/dL (0-100) VLDL Cholesterol, Calculated 14 mg/dL (0-40) Non-HDL Cholesterol Calculated 78 mg/dL (0-129) HDL Cholesterol 40 mg/dL (40-60) Cholesterol/HDL Ratio 3.0 Thyroid Stimulating Hormone (TSH) 7.153 uIU/mL (0.358-3.74) Free Thyroxine 0.64 ng/dL (0.76-1.46) Free Triiodothyronine (T3) pg/mL 0.57 pg/mL (2.18-3.98) Test 09/11/18 09:45 O2 Saturation 95 % (92-99) Arterial Blood pH 7.30 (7.35-7.45) Arterial Blood pCO2 at Patient Temp 66 mmHg (35-46) Arterial Blood pO2 at Patient Temp 86 mmHg (65-108) Arterial Blood HCO3 32 mmol/L (21-28) Arterial Blood Base Excess 4 mmol/L (-3-3) FiO2 35 Review of Systems Review of Systems Unable to obtain he is too ill Assessment and Plan Assessmemt and Plan Problems Medical Problems: (1) Acute kidney injury Status: Acute (2) CVA (cerebral vascular accident) Status: Acute (3) Elevated troponin Status: Acute (4) Hypoxia Status: Acute Stroke symptoms Elevated troponin High-grade AV block Hypertension Acute kidney injury Hypercapnic respiratory failure PLAN ICU monitoring BiPAP [facility] cardiology neurosurgery neurology and nephrology are all following DVT prophylaxis Home meds Full code PT OT Long-term prognosis guarded DVT prophylaxis Frequent labs This is a critically ill patient Total time 32 minutes Comment Review of Relevant I have reviewed the following items jonathon (where applicable) has been applied. Labs Laboratory Tests Test 09/09/18 18:10 09/09/18 18:36 09/09/18 19:40 09/10/18 00:01 White Blood Count 6.7 x10^3/uL (4.0-11.0) Red Blood Count 3.82 x10^6/uL (4.30-5.70) Hemoglobin 9.3 g/dL (13.0-17.5) Hematocrit 30.9 % (39.0-53.0) Mean Corpuscular Volume 81 fL (79-100) Mean Corpuscular Hemoglobin 24 pg (25-35) Mean Corpuscular Hemoglobin Concent 30 g/dL (31-37) Red Cell Distribution Width 17.0 % (11.5-14.5) Platelet Count 260 x10^3/uL (140-400) Neutrophils (%) (Auto) 76 % (31-73) Lymphocytes (%) (Auto) 13 % (24-48) Monocytes (%) (Auto) 11 % (0-9) Eosinophils (%) (Auto) 0 % (0-3) Basophils (%) (Auto) 1 % (0-3) Neutrophils # (Auto) 5.0 x10^3uL (1.8-7.7) Lymphocytes # (Auto) 0.8 x10^3/uL (1.0-4.8) Monocytes # (Auto) 0.7 x10^3/uL (0.0-1.1) Eosinophils # (Auto) 0.0 x10^3/uL (0.0-0.7) Basophils # (Auto) 0.1 x10^3/uL (0.0-0.2) Prothrombin Time 17.2 SEC (11.7-14.0) Prothromb Time International Ratio 1.4 (0.8-1.1) Activated Partial Thromboplast Time 34 SEC (24-38) D-Dimer (Kristie) 2.46 ug/mlFEU (0.00-0.50) Sodium Level 142 mmol/L (136-145) Potassium Level 3.5 mmol/L (3.5-5.1) Chloride Level 103 mmol/L (98-107) Carbon Dioxide Level 28 mmol/L (21-32) Anion Gap 11 (6-14) Blood Urea Nitrogen 55 mg/dL (8-26) Creatinine 2.4 mg/dL (0.7-1.3) Estimated GFR (Cockcroft-Gault) 25.6 BUN/Creatinine Ratio 23 (6-20) Glucose Level 94 mg/dL (70-99) Calcium Level 8.4 mg/dL (8.5-10.1) Total Bilirubin 1.8 mg/dL (0.2-1.0) Aspartate Amino Transf (AST/SGOT) 76 U/L (15-37) Alanine Aminotransferase (ALT/SGPT) 47 U/L (16-63) Alkaline Phosphatase 156 U/L (46-116) Troponin I Quantitative 0.123 ng/mL (0.000-0.055) 0.126 ng/mL (0.000-0.055) NU-Krz-I-Type Natriuretic Peptide 6062 pg/mL (0-449) Total Protein 6.7 g/dL (6.4-8.2) Albumin 2.8 g/dL (3.4-5.0) Albumin/Globulin Ratio 0.7 (1.0-1.7) Influenza Type A Antigen Negative (NEGATIVE) Influenza Type B Antigen Negative (NEGATIVE) Lactic Acid Level 2.0 mmol/L (0.4-2.0) Test 09/10/18 05:00 09/10/18 16:45 09/10/18 17:15 09/11/18 04:30 White Blood Count 7.8 x10^3/uL (4.0-11.0) Red Blood Count 3.54 x10^6/uL (4.30-5.70) Hemoglobin 8.8 g/dL (13.0-17.5) Hematocrit 28.3 % (39.0-53.0) Mean Corpuscular Volume 80 fL (79-100) Mean Corpuscular Hemoglobin 25 pg (25-35) Mean Corpuscular Hemoglobin Concent 31 g/dL (31-37) Red Cell Distribution Width 16.9 % (11.5-14.5) Platelet Count 222 x10^3/uL (140-400) Neutrophils (%) (Auto) 76 % (31-73) Lymphocytes (%) (Auto) 13 % (24-48) Monocytes (%) (Auto) 10 % (0-9) Eosinophils (%) (Auto) 1 % (0-3) Basophils (%) (Auto) 1 % (0-3) Neutrophils # (Auto) 5.9 x10^3uL (1.8-7.7) Lymphocytes # (Auto) 1.0 x10^3/uL (1.0-4.8) Monocytes # (Auto) 0.8 x10^3/uL (0.0-1.1) Eosinophils # (Auto) 0.0 x10^3/uL (0.0-0.7) Basophils # (Auto) 0.1 x10^3/uL (0.0-0.2) Sodium Level 143 mmol/L (136-145) Potassium Level 3.4 mmol/L (3.5-5.1) Chloride Level 105 mmol/L (98-107) Carbon Dioxide Level 30 mmol/L (21-32) Anion Gap 8 (6-14) Blood Urea Nitrogen 50 mg/dL (8-26) Creatinine 2.0 mg/dL (0.7-1.3) Estimated GFR (Cockcroft-Gault) 31.6 BUN/Creatinine Ratio 25 (6-20) Glucose Level 92 mg/dL (70-99) Calcium Level 8.2 mg/dL (8.5-10.1) Total Bilirubin 1.4 mg/dL (0.2-1.0) Aspartate Amino Transf (AST/SGOT) 63 U/L (15-37) Alanine Aminotransferase (ALT/SGPT) 44 U/L (16-63) Alkaline Phosphatase 137 U/L (46-116) Troponin I Quantitative 0.142 ng/mL (0.000-0.055) Total Protein 5.6 g/dL (6.4-8.2) Albumin 2.5 g/dL (3.4-5.0) Albumin/Globulin Ratio 0.8 (1.0-1.7) Urine Color Yellow Urine Clarity Clear Urine pH 5.0 Urine Specific [place] 1.025 Urine Protein 30 mg/dL (NEG-TRACE) Urine Glucose (UA) Negative mg/dL (NEG) Urine Ketones (Stick) Negative mg/dL (NEG) Urine Blood Negative (NEG) Urine Nitrite Negative (NEG) Urine Bilirubin Negative (NEG) Urine Urobilinogen Dipstick 1.0 mg/dL (0.2 mg/dL) Urine Leukocyte Esterase Negative (NEG) Urine RBC 0 /HPF (0-2) Urine WBC 1-4 /HPF (0-4) Urine Squamous Epithelial Cells Occ /LPF Urine Bacteria 0 /HPF (0-FEW) Urine Hyaline Casts Occasional /HPF Urine Granular Casts Occasional /HPF Urine Mucus Mod /LPF O2 Saturation 94 % (92-99) Arterial Blood pH 7.30 (7.35-7.45) Arterial Blood pCO2 at Patient Temp 56 mmHg (35-46) Arterial Blood pO2 at Patient Temp 82 mmHg (65-108) Arterial Blood HCO3 27 mmol/L (21-28) Arterial Blood Base Excess 0 mmol/L (-3-3) FiO2 3 lpm nc Triglycerides Level 71 mg/dL (0-150) Cholesterol Level 118 mg/dL (0-200) LDL Cholesterol, Calculated 64 mg/dL (0-100) VLDL Cholesterol, Calculated 14 mg/dL (0-40) Non-HDL Cholesterol Calculated 78 mg/dL (0-129) HDL Cholesterol 40 mg/dL (40-60) Cholesterol/HDL Ratio 3.0 Thyroid Stimulating Hormone (TSH) 7.153 uIU/mL (0.358-3.74) Free Thyroxine 0.64 ng/dL (0.76-1.46) Free Triiodothyronine (T3) pg/mL 0.57 pg/mL (2.18-3.98) Test 09/11/18 07:30 09/11/18 09:45 O2 Saturation 92 % (92-99) 95 % (92-99) Arterial Blood pH 7.25 (7.35-7.45) 7.30 (7.35-7.45) Arterial Blood pCO2 at Patient Temp 76 mmHg (35-46) 66 mmHg (35-46) Arterial Blood pO2 at Patient Temp 74 mmHg (65-108) 86 mmHg (65-108) Arterial Blood HCO3 33 mmol/L (21-28) 32 mmol/L (21-28) Arterial Blood Base Excess 4 mmol/L (-3-3) 4 mmol/L (-3-3) FiO2 36 35 Laboratory Tests Test 09/10/18 16:45 09/10/18 17:15 09/11/18 04:30 09/11/18 07:30 Urine Color Yellow Urine Clarity Clear Urine pH 5.0 Urine Specific [place] 1.025 Urine Protein 30 mg/dL (NEG-TRACE) Urine Glucose (UA) Negative mg/dL (NEG) Urine Ketones (Stick) Negative mg/dL (NEG) Urine Blood Negative (NEG) Urine Nitrite Negative (NEG) Urine Bilirubin Negative (NEG) Urine Urobilinogen Dipstick 1.0 mg/dL (0.2 mg/dL) Urine Leukocyte Esterase Negative (NEG) Urine RBC 0 /HPF (0-2) Urine WBC 1-4 /HPF (0-4) Urine Squamous Epithelial Cells Occ /LPF Urine Bacteria 0 /HPF (0-FEW) Urine Hyaline Casts Occasional /HPF Urine Granular Casts Occasional /HPF Urine Mucus Mod /LPF O2 Saturation 94 % (92-99) 92 % (92-99) Arterial Blood pH 7.30 (7.35-7.45) 7.25 (7.35-7.45) Arterial Blood pCO2 at Patient Temp 56 mmHg (35-46) 76 mmHg (35-46) Arterial Blood pO2 at Patient Temp 82 mmHg (65-108) 74 mmHg (65-108) Arterial Blood HCO3 27 mmol/L (21-28) 33 mmol/L (21-28) Arterial Blood Base Excess 0 mmol/L (-3-3) 4 mmol/L (-3-3) FiO2 3 lpm nc 36 Triglycerides Level 71 mg/dL (0-150) Cholesterol Level 118 mg/dL (0-200) LDL Cholesterol, Calculated 64 mg/dL (0-100) VLDL Cholesterol, Calculated 14 mg/dL (0-40) Non-HDL Cholesterol Calculated 78 mg/dL (0-129) HDL Cholesterol 40 mg/dL (40-60) Cholesterol/HDL Ratio 3.0 Thyroid Stimulating Hormone (TSH) 7.153 uIU/mL (0.358-3.74) Free Thyroxine 0.64 ng/dL (0.76-1.46) Free Triiodothyronine (T3) pg/mL 0.57 pg/mL (2.18-3.98) Test 09/11/18 09:45 O2 Saturation 95 % (92-99) Arterial Blood pH 7.30 (7.35-7.45) Arterial Blood pCO2 at Patient Temp 66 mmHg (35-46) Arterial Blood pO2 at Patient Temp 86 mmHg (65-108) Arterial Blood HCO3 32 mmol/L (21-28) Arterial Blood Base Excess 4 mmol/L (-3-3) FiO2 35 Microbiology 09/09/18 Blood Culture - Preliminary, Resulted NO GROWTH AFTER 1 DAY Medications Current Medications Albuterol/ Ipratropium (Duoneb) 3 ml STK-MED ONCE .ROUTE ; Start 09/09/18 at 18:09; Stop 09/09/18 at 18:10; Status DC Ondansetron HCl (Zofran) 4 mg PRN Q8HRS PRN IV NAUSEA/VOMITING 1ST CHOICE; Start 09/09/18 at 21:00; Stop 09/10/18 at 20:59; Status DC Morphine Sulfate (Morphine Sulfate) 2 mg PRN Q2HR PRN IV SEVERE PAIN; Start 09/09/18 at 21:00; Stop 09/10/18 at 20:59; Status DC Acetaminophen (Tylenol) 650 mg PRN Q4HRS PRN PO FEVER; Start 09/09/18 at 21:00; Stop 09/10/18 at 20:59; Status DC Hydrochlorothiazide (Microzide) 12.5 mg DAILY PO Last administered on 09/10/18at 11:08; Start 09/10/18 at 11:00 Aspirin (Children'S Aspirin) 81 mg QHS PO Last administered on 09/10/18at 21:35; Start 09/10/18 at 21:00 Levothyroxine Sodium (Synthroid) 50 mcg DAILY06 PO ; Start 09/11/18 at 06:00 Methylprednisolone Sodium Succinate (SOLU-Medrol 125MG VIAL) 60 mg BID IV Last administered on 09/11/18at 09:13; Start 09/10/18 at 14:00 Albuterol Sulfate (Ventolin Neb Soln) 2.5 mg TID NEB Last administered on 09/11/18at 07:38; Start 09/10/18 at 14:00 Albuterol Sulfate (Ventolin Neb Soln) 2.5 mg PRN Q2HR PRN NEB [id number]; Start 09/10/18 at 13:45 Active Scripts Active Reported Hydrochlorothiazide Tablet (Hydrochlorothiazide) 12.5 Mg Tablet 12.5 Mg PO DAILY Levothyroxine Sodium 50 Mcg Tablet 1 Tab PO DAILY Amiodarone Hcl 200 Mg Tablet 1 Tab PO DAILY [Tylenol Arthritis] PO PRN PRN Calcium + Vitamin D Tablet (Calcium Carbonate/Vitamin D3) 1 Each Tablet 1 Each PO BID Losartan-Hctz 50-12.5 Mg Tab (Losartan/Hydrochlorothiazide) 1 Each Tablet 1 Tab PO QHS Crestor (Rosuvastatin Calcium) 20 Mg Tablet 1 Tab PO 3X/WEEK Aspirin 81 Mg Tab.chew 1 Tab PO QHS Vitals/I & O Vital Sign - Last 24 Hours 09/10/18 09/10/18 09/10/18 09/10/18 12:00 12:00 13:00 14:00 Temp 97.8 97.8 Pulse 42 42 42 Resp 29 15 20 B/P (MAP) 165/64 (97) 155/68 (97) 140/73 (95) Pulse Ox 96 97 97 O2 Delivery Nasal Cannula Nasal Cannula Nasal Cannula Nasal Cannula O2 Flow Rate 3.0 3.0 3.0 3.0 09/10/18 09/10/18 09/10/18 09/10/18 15:00 16:00 16:00 16:09 Temp 97.9 97.9 Pulse 36 45 Resp 16 24 B/P (MAP) 155/76 (102) 151/63 (92) Pulse Ox 96 95 95 O2 Delivery Nasal Cannula Nasal Cannula Nasal Cannula Nasal Cannula O2 Flow Rate 3.0 3.0 3.0 2.0 09/10/18 09/10/18 09/10/18 09/10/18 17:00 18:00 19:00 19:37 Pulse 45 46 50 Resp 26 26 22 B/P (MAP) 153/64 (93) 168/79 (108) 144/65 (91) Pulse Ox 96 95 97 97 O2 Delivery Nasal Cannula Nasal Cannula Nasal Cannula Nasal Cannula O2 Flow Rate 3.0 3.0 3.0 2.5 09/10/18 09/10/18 09/10/18 09/10/18 20:00 20:00 21:00 22:00 Temp 97.6 97.6 Pulse 48 52 48 Resp 19 26 19 B/P (MAP) 147/69 (95) 143/54 (83) 156/67 (96) Pulse Ox 91 98 95 O2 Delivery Nasal Cannula Nasal Cannula Nasal Cannula Nasal Cannula O2 Flow Rate 4.0 4.0 4.0 4.0 09/10/18 09/11/18 09/11/18 09/11/18 23:00 00:00 00:00 01:00 Pulse 48 46 44 Resp 19 15 13 B/P (MAP) 156/58 (90) 155/65 (95) 169/64 (99) Pulse Ox 95 94 99 O2 Delivery Nasal Cannula Nasal Cannula Nasal Cannula Nasal Cannula O2 Flow Rate 4.0 4.0 4.0 4.0 09/11/18 09/11/18 09/11/18 09/11/18 02:00 03:00 04:00 04:00 Temp 97.7 97.7 Pulse 44 34 40 Resp 20 17 22 B/P (MAP) 157/65 (95) 162/64 (96) 164/70 (101) Pulse Ox 98 99 94 O2 Delivery Nasal Cannula Nasal Cannula Nasal Cannula Nasal Cannula O2 Flow Rate 4.0 4.0 4.0 5.0 09/11/18 09/11/18 09/11/18 09/11/18 05:00 06:00 07:00 07:30 Pulse 48 40 35 Resp 19 18 27 B/P (MAP) 168/68 (101) 171/64 (99) 175/66 (102) Pulse Ox 93 90 92 95 O2 Delivery Nasal Cannula Nasal Cannula Nasal Cannula Nasal Cannula O2 Flow Rate 4.0 4.0 4.0 4.0 09/11/18 09/11/18 09/11/18 09/11/18 08:00 08:00 09:01 09:59 Temp 96.1 96.1 Pulse 40 48 Resp 12 12 B/P (MAP) 173/80 (111) 182/72 (108) Pulse Ox 100 97 96 O2 Delivery BiPAP/CPAP Nasal Cannula BiPAP/CPAP BiPAP/CPAP O2 Flow Rate 4.0 09/11/18 10:00 Pulse 40 Resp 15 B/P (MAP) 181/57 (98) Pulse Ox 96 O2 Delivery BiPAP/CPAP Intake and Output 09/10/18 09/10/18 09/11/18 15:00 23:00 07:00 Intake Total 118 ml 920 ml 0 ml Output Total 200 ml 250 ml 305 ml Balance -82 ml 670 ml -305 ml ALMA MCKEON K III DO September 11, 2018 11:02
[2018-09-11] MEDS ORDERED: MAGNESIUM SULFATE 2GM 50 ML IV PRN (11:30)
--- NOTE | 2018-09-11 11:35 | PDOC ---
SUBJECTIVE ROS Asked to see for acute on chronic renal insufficiency Patient currently on BiPAP. I'm unable to obtain terms of history or review of systems from him. OBJECTIVE Vital Signs Vital Signs Date Time Temp Pulse Resp B/P (MAP) Pulse Ox O2 Delivery O2 Flow Rate FiO2 09/11/18 11:06 44 18 163/60 (94) 93 BiPAP/CPAP 09/11/18 08:00 4.0 09/11/18 08:00 96.1 96.1 I & 0 Intake and Output 09/11/18 07:00 Intake Total 1038 ml Output Total 755 ml Balance 283 ml Intake Oral 1038 ml Output Urine Total 755 ml # Bowel Movements 1 PHYSICAL EXAM Physical Exam GEN: Not fully oriented, In moderate respiratory distress. Remains on BiPAP EYES: Vision Unchanged, Conjunctiva Normal EN: No EN Drainage, Mucous Membranes are dry while on BiPAP NECK: + JVD, + JVP, Supple, no Thyromegaly CVS: S1S2, soft Murmur, No Gallop, No Rub, Tr Edema RESP: ? basal Rales, occ Rhonchi,no Acc. Muscle Use. Remains on BiPAP GI: BS + ve, NO Bruit, Non Tender, Non Distended : no CVA tenderness, no Suprapubic Tenderness DIAGNOSIS/ASSESSMENT Assessment & Plan Acute kidney injury: No labs for today. We'll check labs and reevaluate. Current fluid and E-lyte status does not necessitate emergent need for dialysis. Will re-evaluate for dialysis in the am Underlying chronic kidney disease given renal cortical thinning cannot be ruled out. 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 ANEMIA; check iron profile. as needed Possible volume depletion: Urine output appears to be adequate currently Discussed Plan of Care with family at bedside COMMENT/RELEVANT DATA Meds Current Medications Medications (Trade) Dose Ordered Sig/Jose Start Time Stop Time Status Last Admin Dose Admin Acetaminophen (Tylenol) 650 mg PRN Q4HRS PRN 09/09/18 21:00 09/10/18 20:59 DC Albuterol Sulfate (Ventolin Neb Soln) 2.5 mg PRN Q2HR PRN 09/10/18 13:45 Albuterol/ Ipratropium (Duoneb) 3 ml STK-MED ONCE 09/09/18 18:09 09/09/18 18:10 DC Aspirin (Children'S Aspirin) 81 mg QHS 09/10/18 21:00 09/10/18 21:35 Hydrochlorothiazide (Microzide) 12.5 mg DAILY 09/10/18 11:00 09/10/18 11:08 Levothyroxine Sodium (Synthroid) 50 mcg DAILY06 09/11/18 06:00 Methylprednisolone Sodium Succinate (SOLU-Medrol 125MG VIAL) 60 mg BID 09/10/18 14:00 09/11/18 09:13 Morphine Sulfate (Morphine Sulfate) 2 mg PRN Q2HR PRN 09/09/18 21:00 09/10/18 20:59 DC Ondansetron HCl (Zofran) 4 mg PRN Q8HRS PRN 09/09/18 21:00 09/10/18 20:59 DC Lab Laboratory Tests Test 09/10/18 16:45 09/10/18 17:15 09/11/18 04:30 09/11/18 07:30 Urine Color Yellow Urine Clarity Clear Urine pH 5.0 Urine Specific [place] 1.025 Urine Protein 30 mg/dL (NEG-TRACE) Urine Glucose (UA) Negative mg/dL (NEG) Urine Ketones (Stick) Negative mg/dL (NEG) Urine Blood Negative (NEG) Urine Nitrite Negative (NEG) Urine Bilirubin Negative (NEG) Urine Urobilinogen Dipstick 1.0 mg/dL (0.2 mg/dL) Urine Leukocyte Esterase Negative (NEG) Urine RBC 0 /HPF (0-2) Urine WBC 1-4 /HPF (0-4) Urine Squamous Epithelial Cells Occ /LPF Urine Bacteria 0 /HPF (0-FEW) Urine Hyaline Casts Occasional /HPF Urine Granular Casts Occasional /HPF Urine Mucus Mod /LPF O2 Saturation 94 % (92-99) 92 % (92-99) Arterial Blood pH 7.30 (7.35-7.45) 7.25 (7.35-7.45) Arterial Blood pCO2 at Patient Temp 56 mmHg (35-46) 76 mmHg (35-46) Arterial Blood pO2 at Patient Temp 82 mmHg (65-108) 74 mmHg (65-108) Arterial Blood HCO3 27 mmol/L (21-28) 33 mmol/L (21-28) Arterial Blood Base Excess 0 mmol/L (-3-3) 4 mmol/L (-3-3) FiO2 3 lpm nc 36 Triglycerides Level 71 mg/dL (0-150) Cholesterol Level 118 mg/dL (0-200) LDL Cholesterol, Calculated 64 mg/dL (0-100) VLDL Cholesterol, Calculated 14 mg/dL (0-40) Non-HDL Cholesterol Calculated 78 mg/dL (0-129) HDL Cholesterol 40 mg/dL (40-60) Cholesterol/HDL Ratio 3.0 Thyroid Stimulating Hormone (TSH) 7.153 uIU/mL (0.358-3.74) Free Thyroxine 0.64 ng/dL (0.76-1.46) Free Triiodothyronine (T3) pg/mL 0.57 pg/mL (2.18-3.98) Test 09/11/18 09:45 O2 Saturation 95 % (92-99) Arterial Blood pH 7.30 (7.35-7.45) Arterial Blood pCO2 at Patient Temp 66 mmHg (35-46) Arterial Blood pO2 at Patient Temp 86 mmHg (65-108) Arterial Blood HCO3 32 mmol/L (21-28) Arterial Blood Base Excess 4 mmol/L (-3-3) FiO2 35 Results All relevant outside records, renal labs, imaging studies, telemetry/EKG's were reviewed. Other IMPRESSION: 1. Limited exam due to motion. 2. Bilateral renal cortical thinning and suspected left renal cortical encephalomalacia due to scarring. 3. Small right renal cyst. MEENAKSHI REYES MD September 11, 2018 11:35
[2018-09-11 12:19] LABS: CALCIUM 8.3 mg/dL (8.5-10.1); CREATININE 1.6 mg/dL (0.7-1.3); GFR 40.9; MAGNESIUM 2.3 mg/dL (1.8-2.4); POTASSIUM 3.5 mmol/L (3.5-5.1)
[2018-09-11] MEDS: ASPIRIN CHEWABLE 81 MG TABLET. PO SCH (20:32)
[2018-09-12] VITALS (25 sets, daily range): BP systolic 133–185; BP diastolic 49–86
[2018-09-12 05:39] LABS: ALBUMIN 2.3 g/dL (3.4-5.0); CALCIUM 8.6 mg/dL (8.5-10.1); CREATININE 1.4 mg/dL (0.7-1.3); GFR 47.7; POTASSIUM 3.7 mmol/L (3.5-5.1)
[2018-09-12] MEDS: LEVOTHYROXINE 50 MCG TABLET PO SCH (06:08)
--- NOTE | 2018-09-12 06:44 | PDOC ---
PULMONARY PROGRESS NOTES Subjective on bipap, alert, no sob, cp, cough, dizziness, in CHB Vitals Vital Signs Date Time Temp Pulse Resp B/P (MAP) Pulse Ox O2 Delivery O2 Flow Rate FiO2 09/12/18 06:00 38 14 175/85 (115) 93 Room Air 09/12/18 00:00 97.4 97.4 09/11/18 16:00 4.0 Comments ros as mentioned as above discussed w rn, rt, other sys otherwise neg General: Alert HEENT: Other (nc at perrl bipap mask on, neck no lad, no thyromegaly) Lungs: Crackles Cardiovascular: S1, S2 Abdomen: Soft, Non-tender, Other (no mass) Neuro Exam: Alert Extremities: No Edema Skin: Warm Labs Laboratory Tests Test 09/10/18 16:45 09/10/18 17:15 09/11/18 04:30 09/11/18 07:30 Urine Color Yellow Urine Clarity Clear Urine pH 5.0 Urine Specific [place] 1.025 Urine Protein 30 mg/dL (NEG-TRACE) Urine Glucose (UA) Negative mg/dL (NEG) Urine Ketones (Stick) Negative mg/dL (NEG) Urine Blood Negative (NEG) Urine Nitrite Negative (NEG) Urine Bilirubin Negative (NEG) Urine Urobilinogen Dipstick 1.0 mg/dL (0.2 mg/dL) Urine Leukocyte Esterase Negative (NEG) Urine RBC 0 /HPF (0-2) Urine WBC 1-4 /HPF (0-4) Urine Squamous Epithelial Cells Occ /LPF Urine Bacteria 0 /HPF (0-FEW) Urine Hyaline Casts Occasional /HPF Urine Granular Casts Occasional /HPF Urine Mucus Mod /LPF O2 Saturation 94 % (92-99) 92 % (92-99) Arterial Blood pH 7.30 (7.35-7.45) 7.25 (7.35-7.45) Arterial Blood pCO2 at Patient Temp 56 mmHg (35-46) 76 mmHg (35-46) Arterial Blood pO2 at Patient Temp 82 mmHg (65-108) 74 mmHg (65-108) Arterial Blood HCO3 27 mmol/L (21-28) 33 mmol/L (21-28) Arterial Blood Base Excess 0 mmol/L (-3-3) 4 mmol/L (-3-3) FiO2 3 lpm nc 36 Sodium Level 143 mmol/L (136-145) Potassium Level 3.5 mmol/L (3.5-5.1) Chloride Level 105 mmol/L (98-107) Carbon Dioxide Level 27 mmol/L (21-32) Anion Gap 11 (6-14) Blood Urea Nitrogen 40 mg/dL (8-26) Creatinine 1.6 mg/dL (0.7-1.3) Estimated GFR (Cockcroft-Gault) 40.9 Glucose Level 209 mg/dL (70-99) Calcium Level 8.3 mg/dL (8.5-10.1) Magnesium Level 2.3 mg/dL (1.8-2.4) Triglycerides Level 71 mg/dL (0-150) Cholesterol Level 118 mg/dL (0-200) LDL Cholesterol, Calculated 64 mg/dL (0-100) VLDL Cholesterol, Calculated 14 mg/dL (0-40) Non-HDL Cholesterol Calculated 78 mg/dL (0-129) HDL Cholesterol 40 mg/dL (40-60) Cholesterol/HDL Ratio 3.0 Thyroid Stimulating Hormone (TSH) 7.153 uIU/mL (0.358-3.74) Free Thyroxine 0.64 ng/dL (0.76-1.46) Free Triiodothyronine (T3) pg/mL 0.57 pg/mL (2.18-3.98) Test 09/11/18 09:45 09/12/18 05:00 O2 Saturation 95 % (92-99) Arterial Blood pH 7.30 (7.35-7.45) Arterial Blood pCO2 at Patient Temp 66 mmHg (35-46) Arterial Blood pO2 at Patient Temp 86 mmHg (65-108) Arterial Blood HCO3 32 mmol/L (21-28) Arterial Blood Base Excess 4 mmol/L (-3-3) FiO2 35 Hemoglobin 8.7 g/dL (13.0-17.5) Sodium Level 146 mmol/L (136-145) Potassium Level 3.7 mmol/L (3.5-5.1) Chloride Level 107 mmol/L (98-107) Carbon Dioxide Level 34 mmol/L (21-32) Anion Gap 5 (6-14) Blood Urea Nitrogen 33 mg/dL (8-26) Creatinine 1.4 mg/dL (0.7-1.3) Estimated GFR (Cockcroft-Gault) 47.7 Glucose Level 157 mg/dL (70-99) Calcium Level 8.6 mg/dL (8.5-10.1) Phosphorus Level 3.0 mg/dL (2.6-4.7) Magnesium Level 2.3 mg/dL (1.8-2.4) Albumin 2.3 g/dL (3.4-5.0) Laboratory Tests Test 09/11/18 07:30 09/11/18 09:45 09/12/18 05:00 O2 Saturation 92 % (92-99) 95 % (92-99) Arterial Blood pH 7.25 (7.35-7.45) 7.30 (7.35-7.45) Arterial Blood pCO2 at Patient Temp 76 mmHg (35-46) 66 mmHg (35-46) Arterial Blood pO2 at Patient Temp 74 mmHg (65-108) 86 mmHg (65-108) Arterial Blood HCO3 33 mmol/L (21-28) 32 mmol/L (21-28) Arterial Blood Base Excess 4 mmol/L (-3-3) 4 mmol/L (-3-3) FiO2 36 35 Hemoglobin 8.7 g/dL (13.0-17.5) Sodium Level 146 mmol/L (136-145) Potassium Level 3.7 mmol/L (3.5-5.1) Chloride Level 107 mmol/L (98-107) Carbon Dioxide Level 34 mmol/L (21-32) Anion Gap 5 (6-14) Blood Urea Nitrogen 33 mg/dL (8-26) Creatinine 1.4 mg/dL (0.7-1.3) Estimated GFR (Cockcroft-Gault) 47.7 Glucose Level 157 mg/dL (70-99) Calcium Level 8.6 mg/dL (8.5-10.1) Phosphorus Level 3.0 mg/dL (2.6-4.7) Magnesium Level 2.3 mg/dL (1.8-2.4) Albumin 2.3 g/dL (3.4-5.0) Medications Active Scripts Medications Dose Route/Sig Max Daily Dose Days Date Category Hydrochlorothiazide Tablet (Hydrochlorothiazide) 12.5 Mg Tablet 12.5 Mg PO DAILY 09/09/18 Reported Levothyroxine Sodium 50 Mcg Tablet 1 Tab PO DAILY 09/09/18 Reported Amiodarone Hcl 200 Mg Tablet 1 Tab PO DAILY 10/16/17 Reported [Tylenol Arthritis] PO PRN PRN 08/28/17 Reported Calcium + Vitamin D Tablet (Calcium Carbonate/Vitamin D3) 1 Each Tablet 1 Each PO BID 08/28/17 Reported Losartan-Hctz 50-12.5 Mg Tab (Losartan/Hydrochlorothiazide) 1 Each Tablet 1 Tab PO QHS 08/28/17 Reported Crestor (Rosuvastatin Calcium) 20 Mg Tablet 1 Tab PO 3X/WEEK 08/28/17 Reported Aspirin 81 Mg Tab.chew 1 Tab PO QHS 08/28/17 Reported Comments cxr atelectasis effusion Impression . MPRESSION: 1. Acute hypoxemic respiratory failure. 2. Chronic obstructive pulmonary disease w ae. 3. Iabma-gu-armjktm renal insufficiency. 4. Crjza-zq-fpyrwvb encephalopathy, suspect multifactorial, resolved. 5. Paroxysmal atrial fibrillation status post cardioversion in the past. CHB 6. Hypothyroidism. Plan . PLAN: 1. 02 titration, use bipap prn during day, continuously at night 2. Nebulized treatments, duo neb qid 3. change solumedrol to 40 mg daily 4. No antibiotics at this time. 5. Follow other consultants' input. 6. cxr, reviewed, effusion atelectasis, monitor discussed w rn, rt, pt NATE ZAPATA MD September 12, 2018 06:44
[2018-09-12] MEDS: ENOXAPARIN 40 MG/0.4 ML SYRINGE. SQ SCH (09:00)
[2018-09-12] MEDS: ALBUTEROL SULFATE 2.5 MG/3 ML NEBU. NEB SCH ×3 (09:09→20:02)
--- NOTE | 2018-09-12 09:14 | RAD ---
CHEST AP ONLY History: Respiratory failure Comparison: September 09, 2018 Findings: Single view of the chest is submitted. There is some increased hazy bibasilar airspace opacity greater on the right. Pericardial cardiac silhouette is again enlarged. There is no pneumothorax. There is some atherosclerotic calcification near the aortic arch. There are probable very small pleural effusions bilaterally more apparent on this exam. Impression: 1. There are probable very small bilateral pleural effusions, also increased bibasilar airspace opacity which may be due to edema/infiltrates/atelectasis. Electronically signed by: Benjamin Mckeon MD (09/12/2018 9:11 AM) [id number]
--- NOTE | 2018-09-12 10:55 | PDOC ---
CARDIOLOGY PROGRESS NOTE SUBJECTIVE: No events overnight. This morning he is more alert but remains quite confused. OBJECTIVE: Vital SIgns: Vital Signs Date Time Temp Pulse Resp B/P (MAP) Pulse Ox O2 Delivery O2 Flow Rate FiO2 09/12/18 09:09 99 Nasal Cannula 2.0 09/12/18 07:00 98.2 38 18 185/76 (112) 98.2 I & O Intake and Output 09/12/18 07:00 Intake Total 270 ml Output Total 825 ml Balance -555 ml Intake Oral 270 ml Output Urine Total 825 ml Objective: bilateral rhonchi no edema. irregular heart tones. CURRENT MEDICATIONS: Current Medications Medications (Trade) Dose Ordered Sig/Jose Start Time Stop Time Status Last Admin Dose Admin Acetaminophen (Tylenol) 650 mg PRN Q4HRS PRN 09/09/18 21:00 09/10/18 20:59 DC Albuterol Sulfate (Ventolin Neb Soln) 2.5 mg PRN Q2HR PRN 09/10/18 13:45 Albuterol/ Ipratropium (Duoneb) 3 ml STK-MED ONCE 09/09/18 18:09 09/09/18 18:10 DC Aspirin (Children'S Aspirin) 81 mg QHS 09/10/18 21:00 09/11/18 20:32 81 MG Enoxaparin Sodium (Lovenox 40mg Syringe) 40 mg Q24H 09/12/18 09:00 Hydrochlorothiazide (Microzide) 12.5 mg DAILY 09/10/18 11:00 09/10/18 11:08 12.5 MG Levothyroxine Sodium (Synthroid) 50 mcg DAILY06 09/11/18 06:00 09/12/18 06:08 50 MCG Lorazepam (Ativan Inj) 2 mg PRN Q2HR PRN 09/11/18 17:45 Magnesium Sulfate 50 ml @ 25 mls/hr PRN DAILY PRN 09/11/18 11:30 Methylprednisolone Sodium Succinate (SOLU-Medrol 40MG VIAL) 40 mg DAILY 09/13/18 09:00 Methylprednisolone Sodium Succinate (SOLU-Medrol 125MG VIAL) 60 mg BID 09/10/18 14:00 09/12/18 10:02 DC 09/11/18 20:32 60 MG Morphine Sulfate (Morphine Sulfate) 2 mg PRN Q2HR PRN 09/09/18 21:00 09/10/18 20:59 DC Ondansetron HCl (Zofran) 4 mg PRN Q8HRS PRN 09/09/18 21:00 09/10/18 20:59 DC DIAGNOSTIC TESTING: Cr stable Na mildly elevated. ASSESSMENT: 1. high grade AVB/Falls 2. HTN 3. JAY JAY - improving 4. Chronic small vessel ischemic disease. 5. Acute on chronic hypercapneic resp failure - likely due to above PLAN: 1. Discussed extensively with family yesterday regarding etiologies of his falls, mental status changes etc. They wish to proceed with dual chamber pacer. Will plan for this tomorrow. Thanks. PRADEEP VIVAS MD September 12, 2018 10:55
--- NOTE | 2018-09-12 11:19 | PDOC ---
SUBJECTIVE ROS Follow-up for AK I Patient appears much more awake alert and oriented today. He ate all of his breakfast today. He reports feeling "fine"today. CVS: no Orthopnea, no CP RESP: no SOB, no CABALLERO GI: no Nausea, no Vomiting : no Dysuria, no Urgency OBJECTIVE Vital Signs Vital Signs Date Time Temp Pulse Resp B/P (MAP) Pulse Ox O2 Delivery O2 Flow Rate FiO2 09/12/18 09:09 99 Nasal Cannula 2.0 09/12/18 07:00 98.2 38 18 185/76 (112) 98.2 I & 0 Intake and Output 09/12/18 07:00 Intake Total 270 ml Output Total 825 ml Balance -555 ml Intake Oral 270 ml Output Urine Total 825 ml PHYSICAL EXAM Physical Exam GEN: Much more awake and oriented today. No visible respiratory distress. Remains off of BiPAP EYES: Vision Unchanged, Conjunctiva Normal EN: No EN Drainage, Mucous Membranes are dry while on BiPAP NECK: + JVD, + JVP, Supple, no Thyromegaly CVS: S1S2, soft Murmur, No Gallop, No Rub, Tr Edema RESP: No Rales, no Rhonchi,no Acc. Muscle Use. GI: BS + ve, NO Bruit, Non Tender, Non Distended : no CVA tenderness, no Suprapubic Tenderness DIAGNOSIS/ASSESSMENT Assessment & Plan Acute kidney injury: Creatinines much improved today. Urine output is adequate as reported. Underlying chronic kidney disease given renal cortical thinning cannot be ruled out. Presumed on the basis of hypertensive nephrosclerosis Hypokalemia: Replaced Hyper natremia: 2 L of D5W and then DC IV fluids. Encourage oral water intake ANEMIA; transfuse if hemoglobin less than 7. Follow-up iron as outpatient Possible volume depletion: Much improved now. We'll be available if needed please call with questions concerns Discussed Plan of Care with family at bedside COMMENT/RELEVANT DATA Meds Current Medications Medications (Trade) Dose Ordered Sig/Jose Start Time Stop Time Status Last Admin Dose Admin Acetaminophen (Tylenol) 650 mg PRN Q4HRS PRN 09/09/18 21:00 09/10/18 20:59 DC Albuterol Sulfate (Ventolin Neb Soln) 2.5 mg PRN Q2HR PRN 09/10/18 13:45 Albuterol/ Ipratropium (Duoneb) 3 ml STK-MED ONCE 09/09/18 18:09 09/09/18 18:10 DC Aspirin (Children'S Aspirin) 81 mg QHS 09/10/18 21:00 09/11/18 20:32 81 MG Enoxaparin Sodium (Lovenox 40mg Syringe) 40 mg Q24H 09/12/18 09:00 Hydrochlorothiazide (Microzide) 12.5 mg DAILY 09/10/18 11:00 09/10/18 11:08 12.5 MG Levothyroxine Sodium (Synthroid) 50 mcg DAILY06 09/11/18 06:00 09/12/18 06:08 50 MCG Lorazepam (Ativan Inj) 2 mg PRN Q2HR PRN 09/11/18 17:45 Magnesium Sulfate 50 ml @ 25 mls/hr PRN DAILY PRN 09/11/18 11:30 Methylprednisolone Sodium Succinate (SOLU-Medrol 40MG VIAL) 40 mg DAILY 09/13/18 09:00 Methylprednisolone Sodium Succinate (SOLU-Medrol 125MG VIAL) 60 mg BID 09/10/18 14:00 09/12/18 10:02 DC 09/11/18 20:32 60 MG Morphine Sulfate (Morphine Sulfate) 2 mg PRN Q2HR PRN 09/09/18 21:00 09/10/18 20:59 DC Ondansetron HCl (Zofran) 4 mg PRN Q8HRS PRN 09/09/18 21:00 09/10/18 20:59 DC Lab Laboratory Tests Test 09/12/18 05:00 Hemoglobin 8.7 g/dL (13.0-17.5) Sodium Level 146 mmol/L (136-145) Potassium Level 3.7 mmol/L (3.5-5.1) Chloride Level 107 mmol/L (98-107) Carbon Dioxide Level 34 mmol/L (21-32) Anion Gap 5 (6-14) Blood Urea Nitrogen 33 mg/dL (8-26) Creatinine 1.4 mg/dL (0.7-1.3) Estimated GFR (Cockcroft-Gault) 47.7 Glucose Level 157 mg/dL (70-99) Calcium Level 8.6 mg/dL (8.5-10.1) Phosphorus Level 3.0 mg/dL (2.6-4.7) Magnesium Level 2.3 mg/dL (1.8-2.4) Albumin 2.3 g/dL (3.4-5.0) Results All relevant outside records, renal labs, imaging studies, telemetry/EKG's were reviewed. Other 1. There are probable very small bilateral pleural effusions, also increased bibasilar airspace opacity which may be due to edema/infiltrates/atelectasis. MEENAKSHI REYES MD September 12, 2018 11:19
[2018-09-12] MEDS: hydroCHLOROthiazide 12.5 MG CAPSULE PO SCH (12:26)
--- NOTE | 2018-09-12 13:16 | PDOC ---
[facility] PROGRESS NOTE Chief Complaint Chief Complaint Stroke symptoms shortness of breath Acute hypoxemic respiratory failure. Chronic obstructive pulmonary disease w ae. Oiold-lh-yxywdps renal insufficiency. Izyve-kk-fivmhfr encephalopathy, suspect multifactorial, resolved. Paroxysmal atrial fibrillation status post cardioversion in the past. CHB Hypothyroidism. History of Present Illness History of Present Illness Patient seen and examined in the intensive care unit Discussed with RN He is currently on home oxygen per nasal cannula Appears extremely ill Reviewed labs Reviewed subspecialist notes Vitals Vitals Vital Signs Date Time Temp Pulse Resp B/P (MAP) Pulse Ox O2 Delivery O2 Flow Rate FiO2 09/12/18 12:00 Nasal Cannula 1.0 09/12/18 12:00 52 29 165/74 (104) 99 09/12/18 07:00 98.2 98.2 Physical Exam General: Alert, Oriented X3 Heart: Regular rate, Normal S1, Normal S2, Other (heart rate slightly irregular) Lungs: Clear, Crackles Abdomen: Soft Extremities: No clubbing, No cyanosis, Other (1+ pitting pedal edema) Skin: No rashes, No breakdown Labs Labs: Laboratory Tests Test 09/12/18 05:00 Hemoglobin 8.7 g/dL (13.0-17.5) Sodium Level 146 mmol/L (136-145) Potassium Level 3.7 mmol/L (3.5-5.1) Chloride Level 107 mmol/L (98-107) Carbon Dioxide Level 34 mmol/L (21-32) Anion Gap 5 (6-14) Blood Urea Nitrogen 33 mg/dL (8-26) Creatinine 1.4 mg/dL (0.7-1.3) Estimated GFR (Cockcroft-Gault) 47.7 Glucose Level 157 mg/dL (70-99) Calcium Level 8.6 mg/dL (8.5-10.1) Phosphorus Level 3.0 mg/dL (2.6-4.7) Magnesium Level 2.3 mg/dL (1.8-2.4) Albumin 2.3 g/dL (3.4-5.0) Review of Systems Review of Systems He complains of weakness and hunger Assessment and Plan Assessmemt and Plan Problems Medical Problems: (1) Acute kidney injury Status: Acute (2) CVA (cerebral vascular accident) Status: Acute (3) Elevated troponin Status: Acute (4) Hypoxia Assessment Acute hypoxemic respiratory failure. Chronic obstructive pulmonary disease w ae. Rpezm-hz-dikhqve renal insufficiency. Gxlrd-nr-cmhslvp encephalopathy, suspect multifactorial, resolved. Paroxysmal atrial fibrillation status post cardioversion in the past. CHB Hypothyroidism. Plan Plan . PLAN: ICU monitoring Going for dual-chamber permit pacemaker in a.m. 02 titration, use bipap prn during day, continuously at night Nebulized treatments, duo neb qid change solumedrol to 40 mg daily No antibiotics at this time.per Dr. Madsen. Agree Follow other consultants' input. Acute kidney injury: Creatinines much improved today. Urine output is adequate as reported. Underlying chronic kidney disease given renal cortical thinning cannot be ruled out. Presumed on the basis of hypertensive nephrosclerosis Hypokalemia: Replaced Hyper natremia: 2 L of D5W and then DC IV fluids. Encourage oral water intake ANEMIA; transfuse if hemoglobin less than 7. Follow-up iron as outpatient Possible volume depletion: Much improved now. DVT prophylaxis Full code Long-term prognosis guarded Total time 32 minutes Comment Review of Relevant I have reviewed the following items jonathon (where applicable) has been applied. Labs Laboratory Tests Test 09/10/18 16:45 09/10/18 17:15 09/11/18 04:30 09/11/18 07:30 Urine Color Yellow Urine Clarity Clear Urine pH 5.0 Urine Specific [place] 1.025 Urine Protein 30 mg/dL (NEG-TRACE) Urine Glucose (UA) Negative mg/dL (NEG) Urine Ketones (Stick) Negative mg/dL (NEG) Urine Blood Negative (NEG) Urine Nitrite Negative (NEG) Urine Bilirubin Negative (NEG) Urine Urobilinogen Dipstick 1.0 mg/dL (0.2 mg/dL) Urine Leukocyte Esterase Negative (NEG) Urine RBC 0 /HPF (0-2) Urine WBC 1-4 /HPF (0-4) Urine Squamous Epithelial Cells Occ /LPF Urine Bacteria 0 /HPF (0-FEW) Urine Hyaline Casts Occasional /HPF Urine Granular Casts Occasional /HPF Urine Mucus Mod /LPF O2 Saturation 94 % (92-99) 92 % (92-99) Arterial Blood pH 7.30 (7.35-7.45) 7.25 (7.35-7.45) Arterial Blood pCO2 at Patient Temp 56 mmHg (35-46) 76 mmHg (35-46) Arterial Blood pO2 at Patient Temp 82 mmHg (65-108) 74 mmHg (65-108) Arterial Blood HCO3 27 mmol/L (21-28) 33 mmol/L (21-28) Arterial Blood Base Excess 0 mmol/L (-3-3) 4 mmol/L (-3-3) FiO2 3 lpm nc 36 Sodium Level 143 mmol/L (136-145) Potassium Level 3.5 mmol/L (3.5-5.1) Chloride Level 105 mmol/L (98-107) Carbon Dioxide Level 27 mmol/L (21-32) Anion Gap 11 (6-14) Blood Urea Nitrogen 40 mg/dL (8-26) Creatinine 1.6 mg/dL (0.7-1.3) Estimated GFR (Cockcroft-Gault) 40.9 Glucose Level 209 mg/dL (70-99) Calcium Level 8.3 mg/dL (8.5-10.1) Magnesium Level 2.3 mg/dL (1.8-2.4) Triglycerides Level 71 mg/dL (0-150) Cholesterol Level 118 mg/dL (0-200) LDL Cholesterol, Calculated 64 mg/dL (0-100) VLDL Cholesterol, Calculated 14 mg/dL (0-40) Non-HDL Cholesterol Calculated 78 mg/dL (0-129) HDL Cholesterol 40 mg/dL (40-60) Cholesterol/HDL Ratio 3.0 Thyroid Stimulating Hormone (TSH) 7.153 uIU/mL (0.358-3.74) Free Thyroxine 0.64 ng/dL (0.76-1.46) Free Triiodothyronine (T3) pg/mL 0.57 pg/mL (2.18-3.98) Test 09/11/18 09:45 09/12/18 05:00 O2 Saturation 95 % (92-99) Arterial Blood pH 7.30 (7.35-7.45) Arterial Blood pCO2 at Patient Temp 66 mmHg (35-46) Arterial Blood pO2 at Patient Temp 86 mmHg (65-108) Arterial Blood HCO3 32 mmol/L (21-28) Arterial Blood Base Excess 4 mmol/L (-3-3) FiO2 35 Hemoglobin 8.7 g/dL (13.0-17.5) Sodium Level 146 mmol/L (136-145) Potassium Level 3.7 mmol/L (3.5-5.1) Chloride Level 107 mmol/L (98-107) Carbon Dioxide Level 34 mmol/L (21-32) Anion Gap 5 (6-14) Blood Urea Nitrogen 33 mg/dL (8-26) Creatinine 1.4 mg/dL (0.7-1.3) Estimated GFR (Cockcroft-Gault) 47.7 Glucose Level 157 mg/dL (70-99) Calcium Level 8.6 mg/dL (8.5-10.1) Phosphorus Level 3.0 mg/dL (2.6-4.7) Magnesium Level 2.3 mg/dL (1.8-2.4) Albumin 2.3 g/dL (3.4-5.0) Laboratory Tests Test 09/12/18 05:00 Hemoglobin 8.7 g/dL (13.0-17.5) Sodium Level 146 mmol/L (136-145) Potassium Level 3.7 mmol/L (3.5-5.1) Chloride Level 107 mmol/L (98-107) Carbon Dioxide Level 34 mmol/L (21-32) Anion Gap 5 (6-14) Blood Urea Nitrogen 33 mg/dL (8-26) Creatinine 1.4 mg/dL (0.7-1.3) Estimated GFR (Cockcroft-Gault) 47.7 Glucose Level 157 mg/dL (70-99) Calcium Level 8.6 mg/dL (8.5-10.1) Phosphorus Level 3.0 mg/dL (2.6-4.7) Magnesium Level 2.3 mg/dL (1.8-2.4) Albumin 2.3 g/dL (3.4-5.0) Microbiology 09/09/18 Blood Culture - Preliminary, Resulted NO GROWTH AFTER 2 DAYS Medications Current Medications Albuterol/ Ipratropium (Duoneb) 3 ml STK-MED ONCE .ROUTE ; Start 09/09/18 at 18:09; Stop 09/09/18 at 18:10; Status DC Ondansetron HCl (Zofran) 4 mg PRN Q8HRS PRN IV NAUSEA/VOMITING 1ST CHOICE; Start 09/09/18 at 21:00; Stop 09/10/18 at 20:59; Status DC Morphine Sulfate (Morphine Sulfate) 2 mg PRN Q2HR PRN IV SEVERE PAIN; Start 09/09/18 at 21:00; Stop 09/10/18 at 20:59; Status DC Acetaminophen (Tylenol) 650 mg PRN Q4HRS PRN PO FEVER; Start 09/09/18 at 21:00; Stop 09/10/18 at 20:59; Status DC Hydrochlorothiazide (Microzide) 12.5 mg DAILY PO Last administered on 09/12/18at 12:26; Start 09/10/18 at 11:00 Aspirin (Children'S Aspirin) 81 mg QHS PO Last administered on 09/11/18at 20:32; Start 09/10/18 at 21:00 Levothyroxine Sodium (Synthroid) 50 mcg DAILY06 PO Last administered on at 06:08; Start 09/11/18 at 06:00 Methylprednisolone Sodium Succinate (SOLU-Medrol 125MG VIAL) 60 mg BID IV Last administered on 09/11/18at 20:32; Start 09/10/18 at 14:00; Stop 09/12/18 at 10:02; Status DC Albuterol Sulfate (Ventolin Neb Soln) 2.5 mg TID NEB Last administered on 09/12/18at 09:09; Start 09/10/18 at 14:00 Albuterol Sulfate (Ventolin Neb Soln) 2.5 mg PRN Q2HR PRN NEB DYSPNEA; Start 09/10/18 at 13:45 Magnesium Sulfate 50 ml @ 25 mls/hr PRN DAILY PRN IV for Mag < 1.7 on am labs; Start 09/11/18 at 11:30 Lorazepam (Ativan Inj) 1 mg PRN Q2HR PRN IV ANXIETY / AGITATION; Start 09/11/18 at 17:45 Lorazepam (Ativan Inj) 2 mg PRN Q2HR PRN IV ANXIETY / AGITATION; Start 09/11/18 at 17:45 Enoxaparin Sodium (Lovenox 40mg Syringe) 40 mg Q24H SQ ; Start 09/12/18 at 09:00 Methylprednisolone Sodium Succinate (SOLU-Medrol 40MG VIAL) 40 mg DAILY IV ; Start 09/13/18 at 09:00 Dextrose 1,000 ml @ 100 mls/hr Q10H IV ; Start 09/12/18 at 12:00; Stop 09/13/18 at 07:59 Active Scripts Active Reported Hydrochlorothiazide Tablet (Hydrochlorothiazide) 12.5 Mg Tablet 12.5 Mg PO DAILY Levothyroxine Sodium 50 Mcg Tablet 1 Tab PO DAILY Amiodarone Hcl 200 Mg Tablet 1 Tab PO DAILY [Tylenol Arthritis] PO PRN PRN Calcium + Vitamin D Tablet (Calcium Carbonate/Vitamin D3) 1 Each Tablet 1 Each PO BID Losartan-Hctz 50-12.5 Mg Tab (Losartan/Hydrochlorothiazide) 1 Each Tablet 1 Tab PO QHS Crestor (Rosuvastatin Calcium) 20 Mg Tablet 1 Tab PO 3X/WEEK Aspirin 81 Mg Tab.chew 1 Tab PO QHS Vitals/I & O Vital Sign - Last 24 Hours 09/11/18 09/11/18 09/11/18 09/11/18 14:00 15:05 15:35 16:00 Temp 97.6 97.6 Pulse 40 38 40 Resp 20 16 17 B/P (MAP) 176/62 (100) 167/70 (102) 146/59 (88) Pulse Ox 98 98 98 99 O2 Delivery BiPAP/CPAP BiPAP/CPAP BiPAP/CPAP BiPAP/CPAP 09/11/18 09/11/18 09/11/18 09/11/18 16:00 17:06 18:14 19:00 Temp 97.6 97.6 Pulse 40 42 45 Resp 22 24 20 B/P (MAP) 149/50 (83) 170/63 (98) 170/80 (110) Pulse Ox 99 5 98 O2 Delivery Bi-pap BiPAP/CPAP Nasal Cannula BiPAP/CPAP O2 Flow Rate 4.0 09/11/18 09/11/18 09/11/18 09/11/18 19:56 20:00 20:00 20:00 Pulse 43 42 Resp 18 24 B/P (MAP) 181/63 (102) 162/72 (102) Pulse Ox 98 99 99 O2 Delivery BiPAP/CPAP BiPAP/CPAP BiPAP/CPAP Bi-pap 09/11/18 09/11/18 09/11/18 09/11/18 21:00 21:15 22:00 23:00 Pulse 41 38 40 Resp 18 18 16 B/P (MAP) 162/63 (96) 155/61 (92) 149/59 (89) Pulse Ox 98 98 99 98 O2 Delivery BiPAP/CPAP BiPAP/CPAP BiPAP/CPAP BiPAP/CPAP 509/12/18 09/12/18 09/12/18 23:59 00:00 00:05 01:00 Temp 97.4 97.4 Pulse 36 34 Resp 15 17 B/P (MAP) 156/62 (93) 162/64 (96) Pulse Ox 98 98 98 O2 Delivery Bi-pap BiPAP/CPAP BiPAP/CPAP BiPAP/CPAP 09/12/18 09/12/18 09/12/18 09/12/18 02:00 02:15 03:00 03:20 Pulse 33 45 Resp 23 18 B/P (MAP) 168/55 (92) 173/67 (102) Pulse Ox 97 98 97 98 O2 Delivery BiPAP/CPAP BiPAP/CPAP BiPAP/CPAP BiPAP/CPAP 09/12/18 09/12/18 09/12/18 09/12/18 04:00 04:00 05:00 05:25 Pulse 34 35 Resp 22 17 B/P (MAP) 178/86 (116) 173/66 (101) Pulse Ox 96 98 98 O2 Delivery BiPAP/CPAP Bi-pap BiPAP/CPAP BiPAP/CPAP 09/12/18 09/12/18 09/12/18 09/12/18 06:00 07:00 08:00 08:00 Temp 98.2 98.2 Pulse 38 38 36 Resp 14 18 22 B/P (MAP) 175/85 (115) 185/76 (112) 166/67 (100) Pulse Ox 93 96 95 O2 Delivery Room Air Nasal Cannula Nasal Cannula Nasal Cannula O2 Flow Rate 0.5 1.0 1.0 09/12/18 09/12/18 09/12/18 09/12/18 09:00 09:09 10:00 11:00 Pulse 36 48 48 Resp 13 16 21 B/P (MAP) 170/65 (100) 174/67 (102) 152/58 (89) Pulse Ox 98 99 98 98 O2 Delivery Nasal Cannula Nasal Cannula Nasal Cannula Nasal Cannula O2 Flow Rate 1.0 2.0 1.0 1.0 09/12/18 09/12/18 12:00 12:00 Pulse 52 Resp 29 B/P (MAP) 165/74 (104) Pulse Ox 99 O2 Delivery Nasal Cannula Nasal Cannula O2 Flow Rate 1.0 1.0 Intake and Output 09/11/18 09/11/18 09/12/18 15:00 23:00 07:00 Intake Total 0 ml 270 ml 0 ml Output Total 0 ml 575 ml 250 ml Balance 0 ml -305 ml -250 ml ALMA MCKEON III DO September 12, 2018 13:16
[2018-09-12] MEDS: IV DEXTROSE 5% 1,000 ML IV SCH (13:25)
[2018-09-12] MEDS: ASPIRIN CHEWABLE 81 MG TABLET. PO SCH (20:52)
[2018-09-13] VITALS (24 sets, daily range): BP systolic 123–189; BP diastolic 51–93
[2018-09-13] MEDS: IV DEXTROSE 5% 1,000 ML IV SCH (00:17)
[2018-09-13] MEDS: HALOPERIDOL LACTATE 5 MG/ML VIAL. IVP PRN ×2 (03:46→14:45)
[2018-09-13 05:58] LABS: ALBUMIN 2.6 g/dL (3.4-5.0); CALCIUM 8.4 mg/dL (8.5-10.1); CREATININE 1.4 mg/dL (0.7-1.3); GFR 47.7; PHOSPHORUS 2.4 mg/dL (2.6-4.7); POTASSIUM 3.3 mmol/L (3.5-5.1)
[2018-09-13] MEDS: LEVOTHYROXINE 50 MCG TABLET PO SCH (06:00)
[2018-09-13] MEDS: ALBUTEROL SULFATE 2.5 MG/3 ML NEBU. NEB SCH ×3 (07:43→19:45)
--- NOTE | 2018-09-13 08:15 | PDOC ---
PROGRESS NOTES Chief Complaint Chief Complaint Stroke symptoms shortness of breath Acute hypoxemic respiratory failure. Chronic obstructive pulmonary disease w ae. Hemyq-ok-dxwwmsy renal insufficiency. Iptln-ru-oofxcin encephalopathy, suspect multifactorial, resolved. Paroxysmal atrial fibrillation status post cardioversion in the past. CHB Hypothyroidism. History of Present Illness History of Present Illness Patient seen and examined in the intensive care unit Discussed with RN He is currently on BIPAP bedside Appears extremely ill, very agitated, biting at tubing Plan for cardiac cath, dual chamber pacer insertion today Reviewed labs Reviewed subspecialist notes 36 minutes critical care time spent Vitals Vitals Vital Signs Date Time Temp Pulse Resp B/P (MAP) Pulse Ox O2 Delivery O2 Flow Rate FiO2 09/13/18 08:00 Bi-pap 09/13/18 07:35 97 09/13/18 07:00 97.6 78 26 172/93 (119) 2.0 97.6 Physical Exam General: Alert, Oriented X3 Heart: Regular rate, Normal S1, Normal S2, Other (heart rate slightly irregular) Lungs: Clear, Crackles Abdomen: Soft Extremities: No clubbing, No cyanosis, Other (1+ pitting pedal edema) Skin: No rashes, No breakdown Labs LABS Laboratory Tests Test 09/13/18 05:30 Sodium Level 142 mmol/L (136-145) Potassium Level 3.3 mmol/L (3.5-5.1) Chloride Level 103 mmol/L (98-107) Carbon Dioxide Level 36 mmol/L (21-32) Anion Gap 3 (6-14) Blood Urea Nitrogen 31 mg/dL (8-26) Creatinine 1.4 mg/dL (0.7-1.3) Estimated GFR (Cockcroft-Gault) 47.7 Glucose Level 119 mg/dL (70-99) Calcium Level 8.4 mg/dL (8.5-10.1) Phosphorus Level 2.4 mg/dL (2.6-4.7) Magnesium Level 2.0 mg/dL (1.8-2.4) Albumin 2.6 g/dL (3.4-5.0) Assessment and Plan Assessmemt and Plan Problems Medical Problems: (1) Acute kidney injury Status: Acute (2) CVA (cerebral vascular accident) Status: Acute (3) Elevated troponin Status: Acute (4) Hypoxia Status: Acute Comment Review of Relevant I have reviewed the following items jonathon (where applicable) has been applied. Labs Laboratory Tests Test 09/11/18 09:45 09/12/18 05:00 09/13/18 05:30 O2 Saturation 95 % (92-99) Arterial Blood pH 7.30 (7.35-7.45) Arterial Blood pCO2 at Patient Temp 66 mmHg (35-46) Arterial Blood pO2 at Patient Temp 86 mmHg (65-108) Arterial Blood HCO3 32 mmol/L (21-28) Arterial Blood Base Excess 4 mmol/L (-3-3) FiO2 35 Hemoglobin 8.7 g/dL (13.0-17.5) Sodium Level 146 mmol/L (136-145) 142 mmol/L (136-145) Potassium Level 3.7 mmol/L (3.5-5.1) 3.3 mmol/L (3.5-5.1) Chloride Level 107 mmol/L (98-107) 103 mmol/L (98-107) Carbon Dioxide Level 34 mmol/L (21-32) 36 mmol/L (21-32) Anion Gap 5 (6-14) 3 (6-14) Blood Urea Nitrogen 33 mg/dL (8-26) 31 mg/dL (8-26) Creatinine 1.4 mg/dL (0.7-1.3) 1.4 mg/dL (0.7-1.3) Estimated GFR (Cockcroft-Gault) 47.7 47.7 Glucose Level 157 mg/dL (70-99) 119 mg/dL (70-99) Calcium Level 8.6 mg/dL (8.5-10.1) 8.4 mg/dL (8.5-10.1) Phosphorus Level 3.0 mg/dL (2.6-4.7) 2.4 mg/dL (2.6-4.7) Magnesium Level 2.3 mg/dL (1.8-2.4) 2.0 mg/dL (1.8-2.4) Albumin 2.3 g/dL (3.4-5.0) 2.6 g/dL (3.4-5.0) Laboratory Tests Test 09/13/18 05:30 Sodium Level 142 mmol/L (136-145) Potassium Level 3.3 mmol/L (3.5-5.1) Chloride Level 103 mmol/L (98-107) Carbon Dioxide Level 36 mmol/L (21-32) Anion Gap 3 (6-14) Blood Urea Nitrogen 31 mg/dL (8-26) Creatinine 1.4 mg/dL (0.7-1.3) Estimated GFR (Cockcroft-Gault) 47.7 Glucose Level 119 mg/dL (70-99) Calcium Level 8.4 mg/dL (8.5-10.1) Phosphorus Level 2.4 mg/dL (2.6-4.7) Magnesium Level 2.0 mg/dL (1.8-2.4) Albumin 2.6 g/dL (3.4-5.0) Microbiology 09/09/18 Blood Culture - Preliminary, Resulted NO GROWTH AFTER 3 DAYS Medications Current Medications Albuterol/ Ipratropium (Duoneb) 3 ml STK-MED ONCE .ROUTE ; Start 09/09/18 at 18:09; Stop 09/09/18 at 18:10; Status DC Ondansetron HCl (Zofran) 4 mg PRN Q8HRS PRN IV NAUSEA/VOMITING 1ST CHOICE; Start 09/09/18 at 21:00; Stop 09/10/18 at 20:59; Status DC Morphine Sulfate (Morphine Sulfate) 2 mg PRN Q2HR PRN IV SEVERE PAIN; Start 09/09/18 at 21:00; Stop 09/10/18 at 20:59; Status DC Acetaminophen (Tylenol) 650 mg PRN Q4HRS PRN PO FEVER; Start 09/09/18 at 21:00; Stop 09/10/18 at 20:59; Status DC Hydrochlorothiazide (Microzide) 12.5 mg DAILY PO Last administered on 09/12/18at 12:26; Start 09/10/18 at 11:00 Aspirin (Children'S Aspirin) 81 mg QHS PO Last administered on 09/12/18at 20:52; Start 09/10/18 at 21:00 Levothyroxine Sodium (Synthroid) 50 mcg DAILY06 PO Last administered on 09/12/18at 06:08; Start 09/11/18 at 06:00 Methylprednisolone Sodium Succinate (SOLU-Medrol 125MG VIAL) 60 mg BID IV Last administered on 09/11/18at 20:32; Start 09/10/18 at 14:00; Stop 09/12/18 at 10:02; Status DC Albuterol Sulfate (Ventolin Neb Soln) 2.5 mg TID NEB Last administered on 09/13/18at 07:43; Start 09/10/18 at 14:00 Albuterol Sulfate (Ventolin Neb Soln) 2.5 mg PRN Q2HR PRN NEB DYSPNEA; Start 09/10/18 at 13:45 Magnesium Sulfate 50 ml @ 25 mls/hr PRN DAILY PRN IV for Mag < 1.7 on am labs; Start 09/11/18 at 11:30 Lorazepam (Ativan Inj) 1 mg PRN Q2HR PRN IV ANXIETY / AGITATION; Start 09/11/18 at 17:45 Lorazepam (Ativan Inj) 2 mg PRN Q2HR PRN IV ANXIETY / AGITATION Last administered on 09/12/18at 23:29; Start 09/11/18 at 17:45 Enoxaparin Sodium (Lovenox 40mg Syringe) 40 mg Q24H SQ ; Start 09/12/18 at 09:00 Methylprednisolone Sodium Succinate (SOLU-Medrol 40MG VIAL) 40 mg DAILY IV ; Start 09/13/18 at 09:00 Dextrose 1,000 ml @ 100 mls/hr Q10H IV Last administered on 09/13/18at 00:17; Start 09/12/18 at 12:00; Stop 09/13/18 at 07:59; Status DC Haloperidol Lactate (Haldol Inj) 5 mg PRN Q6HRS PRN IVP AGITATION Last administered on 09/13/18at 03:46; Start 09/13/18 at 02:45 Active Scripts Active Reported Hydrochlorothiazide Tablet (Hydrochlorothiazide) 12.5 Mg Tablet 12.5 Mg PO DAILY Levothyroxine Sodium 50 Mcg Tablet 1 Tab PO DAILY Amiodarone Hcl 200 Mg Tablet 1 Tab PO DAILY [Tylenol Arthritis] PO PRN PRN Calcium + Vitamin D Tablet (Calcium Carbonate/Vitamin D3) 1 Each Tablet 1 Each PO BID Losartan-Hctz 50-12.5 Mg Tab (Losartan/Hydrochlorothiazide) 1 Each Tablet 1 Tab PO QHS Crestor (Rosuvastatin Calcium) 20 Mg Tablet 1 Tab PO 3X/WEEK Aspirin 81 Mg Tab.chew 1 Tab PO QHS Vitals/I & O Vital Sign - Last 24 Hours 5/09/12/18 09/12/18 09/12/18 09:00 09:09 10:00 11:00 Pulse 36 48 48 Resp 13 16 21 B/P (MAP) 170/65 (100) 174/67 (102) 152/58 (89) Pulse Ox 98 99 98 98 O2 Delivery Nasal Cannula Nasal Cannula Nasal Cannula Nasal Cannula O2 Flow Rate 1.0 2.0 1.0 1.0 09/12/18 09/12/18 09/12/18 09/12/18 12:00 12:00 13:00 14:00 Pulse 52 49 46 Resp 29 27 27 B/P (MAP) 165/74 (104) 155/64 (94) 155/56 (89) Pulse Ox 99 100 99 O2 Delivery Nasal Cannula Nasal Cannula Nasal Cannula Nasal Cannula O2 Flow Rate 1.0 1.0 1.0 1.0 09/12/18 09/12/18 09/12/18 09/12/18 15:00 15:43 16:00 16:00 Temp 97.8 97.8 Pulse 46 44 Resp 20 21 B/P (MAP) 157/70 (99) 158/72 (100) Pulse Ox 100 98 95 O2 Delivery Nasal Cannula Nasal Cannula Nasal Cannula Nasal Cannula O2 Flow Rate 1.0 2.0 1.0 1.0 09/12/18 09/12/18 09/12/18 09/12/18 17:00 18:00 19:00 20:00 Pulse 49 51 44 Resp 19 24 24 B/P (MAP) 158/58 (91) 164/76 (105) 150/54 (86) Pulse Ox 97 99 99 O2 Delivery Nasal Cannula Nasal Cannula Nasal Cannula Nasal Cannula O2 Flow Rate 1.0 0.5 0.5 1.0 09/12/18 09/12/18 09/12/18 09/12/18 20:00 20:03 21:00 22:00 Temp 98.6 98.6 Pulse 46 58 50 Resp 20 20 20 B/P (MAP) 144/61 (88) 133/49 (77) 159/76 (103) Pulse Ox 100 95 99 99 O2 Delivery Nasal Cannula Nasal Cannula Nasal Cannula BiPAP/CPAP O2 Flow Rate 1.0 1.0 0.5 09/12/18 09/12/18 09/13/18 09/13/18 23:00 23:52 00:00 01:00 Temp 97.7 97.7 Pulse 54 51 62 Resp 24 18 24 B/P (MAP) 135/61 (85) 135/61 (85) 170/83 (112) Pulse Ox 99 97 94 O2 Delivery Nasal Cannula Room Air Bi-pap Nasal Cannula O2 Flow Rate 0.5 1.0 09/13/18 09/13/18 09/13/18 09/13/18 01:06 02:00 02:07 03:11 Temp 98.4 98.4 Pulse 60 58 63 Resp 29 20 30 B/P (MAP) 170/83 (112) 189/90 (123) Pulse Ox 94 95 99 96 O2 Delivery Nasal Cannula BiPAP/CPAP BiPAP/CPAP Nasal Cannula O2 Flow Rate 1.0 09/13/18 09/13/18 09/13/18 09/13/18 04:00 04:01 05:11 06:06 Pulse 80 69 79 Resp 29 22 28 B/P (MAP) 160/65 (96) 167/70 (102) 167/80 (109) Pulse Ox 91 94 93 O2 Delivery Nasal Cannula Nasal Cannula Nasal Cannula Nasal Cannula O2 Flow Rate 1.0 1.0 1.0 1.0 09/13/18 09/13/18 09/13/18 07:00 07:35 08:00 Temp 97.6 97.6 Pulse 78 Resp 26 B/P (MAP) 172/93 (119) Pulse Ox 92 97 O2 Delivery Nasal Cannula BiPAP/CPAP Bi-pap O2 Flow Rate 2.0 Intake and Output 09/12/18 09/12/18 09/13/18 15:00 23:00 07:00 Intake Total 480 ml 605 ml 1252 ml Output Total 240 ml 0 ml 0 ml Balance 240 ml 605 ml 1252 ml CALLY GUILLEN MD September 13, 2018 08:15
[2018-09-13] MEDS ORDERED: POTASSIUM PHOSPHATE DIBASIC 15 MMOL in IV NORMAL SALINE 250ML 250 ML IV ONE (08:30)
[2018-09-13] MEDS: methylPREDNISolone SOD SUCC PF 40 MG/ML VIAL. IV SCH (08:33)
[2018-09-13] MEDS: ENOXAPARIN 40 MG/0.4 ML SYRINGE. SQ SCH (08:34)
[2018-09-13] MEDS: hydroCHLOROthiazide 12.5 MG CAPSULE PO SCH (08:34)
[2018-09-13] MEDS ORDERED: LIDOCAINE 2%/EPI 1:100,000 20 ML VIAL. ONE (09:10)
[2018-09-13] MEDS ORDERED: BACITRACIN 50,000 UNIT in IV NORMAL SALINE 250ML 250 ML IRR ONE (09:15)
[2018-09-13] MEDS ORDERED: LIDOCAINE 2%/EPI 1:100,000 20 ML VIAL. IJ ONE (09:15)
[2018-09-13] MEDS ORDERED: PROPOFOL 20 ML IV ONE (09:35)
[2018-09-13] MEDS ORDERED: KETAMINE HCL IN NACL, ISO-OSM 50 MG/5 ML SYRINGE ONE (09:35)
[2018-09-13] MEDS ORDERED: MIDAZOLAM HCL/PF 2 MG/2 ML VIAL. ONE (09:35)
[2018-09-13] MEDS ORDERED: PROPOFOL 50 ML IV ONE (09:35)
[2018-09-13] MEDS ORDERED: LIDOCAINE 2% PF 5 ML VIAL. ONE (09:38)
--- NOTE | 2018-09-13 09:50 | NUR ---
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
--- NOTE | 2018-09-13 10:27 | PDOC ---
MODERATE SEDATION ASSESSMENT RISKS/ALTERNATIVES Risks/Alternatives Risks and alternatives of this type of sedation and procedure discussed with: RISK/ALTERNATIVES: Sig. Other H & P ON CHART H & P H & P on chart and reviewed for co-morbid conditions and appropriate labs. H&P ON CHART: Yes STATUS PREG STATUS ASSESSED: N/A MEDS/ALLERGIES REVIEWED Meds/Allergies Reviewed Medications and Allergies including time and route of recently administered narcotics and sedatives. MEDS/ALLERGIES REVIEWED: Yes ASA RATING ASA RATING: II AIRWAY ASSESSMENT Airway Assessment Airway patency, oral function limitations, presence of caps, crowns, dentures, partials, and ability to extend neck assessed. AIRWAY ASSESSMENT: Yes MALLAMPATI SCORE MALLAMPATI SCORE: II PRE-SEDATION ASSESSMENT PRE-SEDATION ASSESSMENT: Yes PRADEEP VIVAS MD September 13, 2018 10:27
[2018-09-13] MEDS ORDERED: IV NORMAL SALINE 500ML BAG 500 ML IV PRN (10:30)
[2018-09-13] MEDS ORDERED: oxyCODONE/APAP 5/325 1 TAB TABLET PO PRN (11:45)
[2018-09-13] MEDS ORDERED: NO ANTICOAGULANT THERAPY. MC PRN (11:45)
[2018-09-13] MEDS ORDERED: ceFAZolin SODIUM 1 GM in IV DEXTROSE 5% 50 ML IV ONE (12:00)
[2018-09-13] MEDS ORDERED: hydrALAZINE 20 MG/ML VIAL. IVP PRN (12:00)
[2018-09-13] MEDS: DEXMEDETOMIDINE 200 MCG in IV NORMAL SALINE 50ML 48 ML IV PRN ×2 (12:21→22:18)
[2018-09-13] MEDS ORDERED: FUROSEMIDE 40 MG/4 ML VIAL. IVP ONE (12:30)
[2018-09-13] MEDS: POTASSIUM CHLORIDE 10MEQ 100 ML IV SCH ×2 (13:11→14:09)
--- NOTE | 2018-09-13 13:11 | RAD ---
AP portable chest radiograph 09/13/2018 Clinical History: Post pacemaker placement. Two AP erect portable digital radiographs of the chest were obtained. Comparison study is dated 09/12/2018. A pacemaker has been placed to overlie the left anterior chest. Leads extend to overlie the right atrium and right ventricle of the heart. The cardiac silhouette is mildly enlarged. The thoracic aorta is tortuous. Atherosclerotic calcification thoracic aorta is seen. No pneumothorax is noted. There are probable small bilateral pleural effusions. Areas of atelectasis and/or infiltrate are seen involving both lower lobes. Slight prominence of the pulmonary vasculature is again seen. The osseous structures are unchanged. Impression: Interval placement of a left-sided pacemaker. No pneumothorax is seen. Electronically signed by: Tio Tucker MD (09/13/2018 1:08 PM) [facility]
--- NOTE | 2018-09-13 14:24 | PDOC ---
PULMONARY PROGRESS NOTES Subjective BIPAP CURRENTLY AGITATED ON BIPAP FAMILY AT BEDSIDE S/P PACER 09/13 EARLIER TODAY Vitals Vital Signs Date Time Temp Pulse Resp B/P (MAP) Pulse Ox O2 Delivery O2 Flow Rate FiO2 09/13/18 14:00 60 16 152/63 (92) 100 BiPAP/CPAP 09/13/18 12:35 2.0 09/13/18 12:30 97.0 97.0 General: Alert HEENT: Other Lungs: Clear, Crackles Cardiovascular: S1, S2 Abdomen: Soft, Non-tender, Other (no mass) Neuro Exam: Alert Extremities: No Edema Skin: Warm Labs Laboratory Tests Test 09/12/18 05:00 09/13/18 05:30 Hemoglobin 8.7 g/dL (13.0-17.5) Sodium Level 146 mmol/L (136-145) 142 mmol/L (136-145) Potassium Level 3.7 mmol/L (3.5-5.1) 3.3 mmol/L (3.5-5.1) Chloride Level 107 mmol/L (98-107) 103 mmol/L (98-107) Carbon Dioxide Level 34 mmol/L (21-32) 36 mmol/L (21-32) Anion Gap 5 (6-14) 3 (6-14) Blood Urea Nitrogen 33 mg/dL (8-26) 31 mg/dL (8-26) Creatinine 1.4 mg/dL (0.7-1.3) 1.4 mg/dL (0.7-1.3) Estimated GFR (Cockcroft-Gault) 47.7 47.7 Glucose Level 157 mg/dL (70-99) 119 mg/dL (70-99) Calcium Level 8.6 mg/dL (8.5-10.1) 8.4 mg/dL (8.5-10.1) Phosphorus Level 3.0 mg/dL (2.6-4.7) 2.4 mg/dL (2.6-4.7) Magnesium Level 2.3 mg/dL (1.8-2.4) 2.0 mg/dL (1.8-2.4) Albumin 2.3 g/dL (3.4-5.0) 2.6 g/dL (3.4-5.0) Laboratory Tests Test 09/13/18 05:30 Sodium Level 142 mmol/L (136-145) Potassium Level 3.3 mmol/L (3.5-5.1) Chloride Level 103 mmol/L (98-107) Carbon Dioxide Level 36 mmol/L (21-32) Anion Gap 3 (6-14) Blood Urea Nitrogen 31 mg/dL (8-26) Creatinine 1.4 mg/dL (0.7-1.3) Estimated GFR (Cockcroft-Gault) 47.7 Glucose Level 119 mg/dL (70-99) Calcium Level 8.4 mg/dL (8.5-10.1) Phosphorus Level 2.4 mg/dL (2.6-4.7) Magnesium Level 2.0 mg/dL (1.8-2.4) Albumin 2.6 g/dL (3.4-5.0) Medications Active Scripts Medications Dose Route/Sig Max Daily Dose Days Date Category Hydrochlorothiazide Tablet (Hydrochlorothiazide) 12.5 Mg Tablet 12.5 Mg PO DAILY 09/09/18 Reported Levothyroxine Sodium 50 Mcg Tablet 1 Tab PO DAILY 09/09/18 Reported Amiodarone Hcl 200 Mg Tablet 1 Tab PO DAILY 10/16/17 Reported [Tylenol Arthritis] PO PRN PRN 08/28/17 Reported Calcium + Vitamin D Tablet (Calcium Carbonate/Vitamin D3) 1 Each Tablet 1 Each PO BID 08/28/17 Reported Losartan-Hctz 50-12.5 Mg Tab (Losartan/Hydrochlorothiazide) 1 Each Tablet 1 Tab PO QHS 08/28/17 Reported Crestor (Rosuvastatin Calcium) 20 Mg Tablet 1 Tab PO 3X/WEEK 08/28/17 Reported Aspirin 81 Mg Tab.chew 1 Tab PO QHS 08/28/17 Reported Comments EFFUSION ON RIGHT Impression . MPRESSION: 1. Acute hypoxemic respiratory failure. MULTIFATORIAL 2. Chronic obstructive pulmonary disease AECOPD? 3. Cyxba-bq-equckls renal insufficiency. 4. Wcwke-bm-jbenveb encephalopathy, suspect multifactorial 5. Paroxysmal atrial fibrillation status post cardioversion in the past. CHB 6. Hypothyroidism. 7. S/P PACER 8. ABNORMAL CXR Plan . FAMILY IS CONCERNED FOR VARIOUS REASON WILL ADD EMPIRIC ANTIBX LASIX PER CARD PT MORE AGITATED TODAY WILL D/C ATIVAN PRN HALDOL IF NEEDED PRECEDEX WHILE ON BIPAP REVIEWED ALL WITH FAMILY INFORMED PT FAMILY AT THIS AGE A SMALL INSULT RESULTS IN MAJOR ENCEPHALOPATHY CHUY FAJARDO MD September 13, 2018 14:24
[2018-09-13] MEDS: cefTRIAXone IV Push 1 GM VIAL. IVP SCH (14:50)
[2018-09-13] MEDS ORDERED: ceFAZolin SODIUM IV Push 1 GM VIAL. IVP ONE (17:00)
--- NOTE | 2018-09-13 18:51 | EKG ---
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
[2018-09-13] MEDS: ASPIRIN CHEWABLE 81 MG TABLET. PO SCH (20:34)
[2018-09-13 21:25] LABS: CREATININE,RANDOM URINE 27.5 mg/dL (Not Establ.)
[2018-09-14] VITALS (19 sets, daily range): BP systolic 141–207; BP diastolic 52–83
[2018-09-14 05:03] LABS: ALBUMIN 2.2 g/dL (3.4-5.0); CALCIUM 8.3 mg/dL (8.5-10.1); CREATININE 1.1 mg/dL (0.7-1.3); PHOSPHORUS 3.6 mg/dL (2.6-4.7)
[2018-09-14] MEDS: LEVOTHYROXINE 50 MCG TABLET PO SCH ×2 (06:00→16:23)
--- NOTE | 2018-09-14 06:43 | NUR ---
Pt continues on Precedex. Pt was able to take off arm from velcro/sling 3 x last night. Mitts to rt hand maintained. Pacer dressing to left chest with dried drainage, no bleeding. 100% AV paced.
[2018-09-14] MEDS: ALBUTEROL SULFATE 2.5 MG/3 ML NEBU. NEB SCH ×3 (08:21→20:29)
[2018-09-14 08:33] LABS: BASE EXCESS ABG 14 mmol/L (-3-3); HCO3 ABG 40 mmol/L (21-28); PO2 ABG 77 mmHg (65-108); SAT O2 ABG 95 % (92-99)
[2018-09-14] MEDS: LACTOBACILLUS RHAMNOSUS GG 1 CAPSULE. PO SCH ×3 (09:00→16:24)
--- NOTE | 2018-09-14 09:21 | PDOC ---
PROGRESS NOTES Chief Complaint Chief Complaint Stroke symptoms shortness of breath Acute hypoxemic respiratory failure. Chronic obstructive pulmonary disease w ae. [id number] renal insufficiency. [id number] encephalopathy, suspect multifactorial, resolved. Paroxysmal atrial fibrillation status post cardioversion in the past. CHB Hypothyroidism. History of Present Illness History of Present Illness Patient seen and examined in the intensive care unit Discussed with RN He is currently on BIPAP bedside, was on bipap overnight Started precedex yesterday, 09/13/18 after dual chamber pacer insertion, has been less agitated since then. No bradycardia Reviewed labs, will need to repeat CBC Reviewed subspecialist notes, Cont ICU on BIPAP, trial off precedex later today 36 minutes critical care time spent Vitals Vitals Vital Signs Date Time Temp Pulse Resp B/P (MAP) Pulse Ox O2 Delivery O2 Flow Rate FiO2 09/14/18 06:00 60 20 168/73 (104) 98 BiPAP/CPAP 09/14/18 04:00 98.3 98.3 09/13/18 12:35 2.0 Physical Exam General: Alert, mild distress Heart: Regular rate, Normal S1, Normal S2, Other (heart rate slightly irregular) Lungs: Clear, Crackles Abdomen: Soft Extremities: No clubbing, No cyanosis, Other (1+ pitting pedal edema) Skin: No rashes, No breakdown Labs LABS Laboratory Tests Test 09/13/18 21:19 09/14/18 04:30 Urine Random Creatinine 27.5 mg/dL (Not Establ.) Urine Random Total Protein 12.7 mg/dL (Not Establ.) Urine Protein/Creatinine Ratio 462 mg/g (0-200) Sodium Level 144 mmol/L (136-145) Potassium Level 4.0 mmol/L (3.5-5.1) Chloride Level 104 mmol/L (98-107) Carbon Dioxide Level 38 mmol/L (21-32) Anion Gap 2 (6-14) Blood Urea Nitrogen 29 mg/dL (8-26) Creatinine 1.1 mg/dL (0.7-1.3) Estimated GFR (Cockcroft-Gault) 63.0 Glucose Level 107 mg/dL (70-99) Calcium Level 8.3 mg/dL (8.5-10.1) Phosphorus Level 3.6 mg/dL (2.6-4.7) Magnesium Level 2.0 mg/dL (1.8-2.4) Albumin 2.2 g/dL (3.4-5.0) Assessment and Plan Assessmemt and Plan Problems Medical Problems: (1) Acute kidney injury Status: Acute (2) CVA (cerebral vascular accident) Status: Acute (3) Elevated troponin Status: Acute (4) Hypoxia Status: Acute Comment Review of Relevant I have reviewed the following items jonathon (where applicable) has been applied. Labs Laboratory Tests Test 09/13/18 05:30 09/13/18 21:19 09/14/18 04:30 Sodium Level 142 mmol/L (136-145) 144 mmol/L (136-145) Potassium Level 3.3 mmol/L (3.5-5.1) 4.0 mmol/L (3.5-5.1) Chloride Level 103 mmol/L (98-107) 104 mmol/L (98-107) Carbon Dioxide Level 36 mmol/L (21-32) 38 mmol/L (21-32) Anion Gap 3 (6-14) 2 (6-14) Blood Urea Nitrogen 31 mg/dL (8-26) 29 mg/dL (8-26) Creatinine 1.4 mg/dL (0.7-1.3) 1.1 mg/dL (0.7-1.3) Estimated GFR (Cockcroft-Gault) 47.7 63.0 Glucose Level 119 mg/dL (70-99) 107 mg/dL (70-99) Calcium Level 8.4 mg/dL (8.5-10.1) 8.3 mg/dL (8.5-10.1) Phosphorus Level 2.4 mg/dL (2.6-4.7) 3.6 mg/dL (2.6-4.7) Magnesium Level 2.0 mg/dL (1.8-2.4) 2.0 mg/dL (1.8-2.4) Albumin 2.6 g/dL (3.4-5.0) 2.2 g/dL (3.4-5.0) Urine Random Creatinine 27.5 mg/dL (Not Establ.) Urine Random Total Protein 12.7 mg/dL (Not Establ.) Urine Protein/Creatinine Ratio 462 mg/g (0-200) Laboratory Tests Test 09/13/18 21:19 09/14/18 04:30 Urine Random Creatinine 27.5 mg/dL (Not Establ.) Urine Random Total Protein 12.7 mg/dL (Not Establ.) Urine Protein/Creatinine Ratio 462 mg/g (0-200) Sodium Level 144 mmol/L (136-145) Potassium Level 4.0 mmol/L (3.5-5.1) Chloride Level 104 mmol/L (98-107) Carbon Dioxide Level 38 mmol/L (21-32) Anion Gap 2 (6-14) Blood Urea Nitrogen 29 mg/dL (8-26) Creatinine 1.1 mg/dL (0.7-1.3) Estimated GFR (Cockcroft-Gault) 63.0 Glucose Level 107 mg/dL (70-99) Calcium Level 8.3 mg/dL (8.5-10.1) Phosphorus Level 3.6 mg/dL (2.6-4.7) Magnesium Level 2.0 mg/dL (1.8-2.4) Albumin 2.2 g/dL (3.4-5.0) Microbiology 09/09/18 Blood Culture - Preliminary, Resulted NO GROWTH AFTER 4 DAYS Medications Current Medications Albuterol/ Ipratropium (Duoneb) 3 ml STK-MED ONCE .ROUTE ; Start 09/09/18 at 18:09; Stop 09/09/18 at 18:10; Status DC Ondansetron HCl (Zofran) 4 mg PRN Q8HRS PRN IV NAUSEA/VOMITING 1ST CHOICE; Start 09/09/18 at 21:00; Stop 09/10/18 at 20:59; Status DC Morphine Sulfate (Morphine Sulfate) 2 mg PRN Q2HR PRN IV SEVERE PAIN; Start 09/09/18 at 21:00; Stop 09/10/18 at 20:59; Status DC Acetaminophen (Tylenol) 650 mg PRN Q4HRS PRN PO FEVER; Start 09/09/18 at 21:00; Stop 09/10/18 at 20:59; Status DC Hydrochlorothiazide (Microzide) 12.5 mg DAILY PO Last administered on 09/12/18at 12:26; Start 09/10/18 at 11:00 Aspirin (Children'S Aspirin) 81 mg QHS PO Last administered on 09/12/18at 20:52; Start 09/10/18 at 21:00 Levothyroxine Sodium (Synthroid) 50 mcg DAILY06 PO Last administered on 09/12/18 06:08; Start 09/11/18 at 06:00 Methylprednisolone Sodium Succinate (SOLU-Medrol 125MG VIAL) 60 mg BID IV Last administered on 09/11/18 20:32; Start 09/10/18 at 14:00; Stop 09/12/18 at 10:02; Status DC Albuterol Sulfate (Ventolin Neb Soln) 2.5 mg TID NEB Last administered on 09/14/18 08:21; Start 09/10/18 at 14:00 Albuterol Sulfate (Ventolin Neb Soln) 2.5 mg PRN Q2HR PRN NEB [id number]; Start 09/10/18 at 13:45 Magnesium Sulfate 50 ml @ 25 mls/hr PRN DAILY PRN IV for Mag < 1.7 on am labs; Start 09/11/18 at 11:30 Lorazepam (Ativan Inj) 1 mg PRN Q2HR PRN IV ANXIETY / AGITATION Last administered on 09/13/18at 08:33; Start 09/11/18 at 17:45; Stop 09/13/18 at 14:19; Status DC Lorazepam (Ativan Inj) 2 mg PRN Q2HR PRN IV ANXIETY / AGITATION Last administered on 09/12/18at 23:29; Start 09/11/18 at 17:45; Stop 09/13/18 at 14:19; Status DC Enoxaparin Sodium (Lovenox 40mg Syringe) 40 mg Q24H SQ Last administered on 09/13/18at 08:34; Start 09/12/18 at 09:00 Methylprednisolone Sodium Succinate (SOLU-Medrol 40MG VIAL) 40 mg DAILY IV Last administered on 09/13/18at 08:33; Start 09/13/18 at 09:00 Dextrose 1,000 ml @ 100 mls/hr Q10H IV Last administered on 09/13/18at 00:17; Start 09/12/18 at 12:00; Stop 09/13/18 at 07:59; Status DC Haloperidol Lactate (Haldol Inj) 5 mg PRN Q6HRS PRN IVP AGITATION Last administered on 09/13/18at 14:45; Start 09/13/18 at 02:45 Potassium Phosphate 15 mmol/ Sodium Chloride 255 ml @ 127.5 mls/ hr 1X ONCE IV Last administered on 09/13/18at 08:33; Start 09/13/18 at 08:30; Stop 09/13/18 at 10:29; Status DC Potassium Chloride/Water 100 ml @ 100 mls/hr Q1H IV Last administered on 09/13/18at 14:09; Start 09/13/18 at 08:30; Stop 09/13/18 at 10:29; Status DC Lidocaine/ Epinephrine (LIDOCAINE 2%-EPI 1:100,000 multi-dose) 20 ml 1X ONCE IJ Last administered on 09/13/18at 11:12; Start 09/13/18 at 09:15; Stop 09/13/18 at 09:16; Status DC Bacitracin 17489 unit/Sodium Chloride 250 ml @ 0 mls/hr 1X ONCE IRR Last administered on 09/13/18at 11:12; Start 09/13/18 at 09:15; Stop 09/13/18 at 09:16; Status DC Cefazolin Sodium 50 ml @ 100 mls/hr 1X ONCE IV Last administered on 09/13/18at 11:11; Start 09/13/18 at 09:15; Stop 09/13/18 at 09:44; Status DC Lidocaine/ Epinephrine (LIDOCAINE 2%-EPI 1:100,000 multi-dose) 20 ml STK-MED ONCE .ROUTE ; Start 09/13/18 at 09:10; Stop 09/13/18 at 09:11; Status DC Cefazolin Sodium 50 ml @ As Directed STK-MED ONCE IV ; Start 09/13/18 at 09:10; Stop 09/13/18 at 09:11; Status DC Midazolam HCl (Versed) 2 mg STK-MED ONCE .ROUTE ; Start 09/13/18 at 09:35; Stop 09/13/18 at 09:36; Status DC Propofol 20 ml @ As Directed STK-MED ONCE IV ; Start 09/13/18 at 09:35; Stop 09/13/18 at 09:36; Status DC Propofol 50 ml @ As Directed STK-MED ONCE IV ; Start 09/13/18 at 09:35; Stop 09/13/18 at 09:36; Status DC Ketamine HCl (Ketamine) 50 mg STK-MED ONCE .ROUTE ; Start 09/13/18 at 09:35; Stop 09/13/18 at 09:36; Status DC Lidocaine HCl (Lidocaine Pf 2% Vial) 5 ml STK-MED ONCE .ROUTE ; Start 09/13/18 at 09:38; Stop 09/13/18 at 09:39; Status DC Dexmedetomidine HCl 200 mcg/ Sodium Chloride 50 ml @ 0 mls/hr CONT PRN IV PER PROTOCOL Last administered on 09/13/18at 22:18; Start 09/13/18 at 10:30 Sodium Chloride 500 ml @ 500 mls/hr 1X PRN PRN IV SEE COMMENTS; Start 09/13/18 at 10:30 Info (No Anticoagulant Therapy) 1 ea CONT PRN PRN MC PER PROTOCOL; Start 09/13/18 at 11:45 Cefazolin Sodium 1 gm/Dextrose 50 ml @ 100 mls/hr 1X ONCE IV ; Start 09/13/18 at 12:00; Stop 09/13/18 at 12:29; Status UNV Oxycodone/ Acetaminophen (Percocet 5/325) 1 tab PRN Q4HRS PRN PO MILD PAIN 1-3; Start 09/13/18 at 11:45 Cefazolin Sodium (Ancef) 1 gm 1X ONCE IVP Last administered on 09/13/18at 17:17; Start 09/13/18 at 17:00; Stop 09/13/18 at 17:01; Status DC Furosemide (Lasix) 40 mg 1X ONCE IVP Last administered on 09/13/18at 12:21; Start 09/13/18 at 12:30; Stop 09/13/18 at 12:31; Status DC Hydralazine HCl (Apresoline Inj) 10 mg PRN Q4HRS PRN IVP ELEVATED BP, SEE COMMENTS; Start 09/13/18 at 12:00 Ceftriaxone Sodium (Rocephin) 1 gm Q24H IVP Last administered on 09/13/18at 14:50; Start 09/13/18 at 15:00 Lactobacillus Rhamnosus (Culturelle) 1 cap BID PO ; Start 09/14/18 at 09:00 Active Scripts Active Reported Hydrochlorothiazide Tablet (Hydrochlorothiazide) 12.5 Mg Tablet 12.5 Mg PO DAILY Levothyroxine Sodium 50 Mcg Tablet 1 Tab PO DAILY Amiodarone Hcl 200 Mg Tablet 1 Tab PO DAILY [Tylenol Arthritis] PO PRN PRN Calcium + Vitamin D Tablet (Calcium Carbonate/Vitamin D3) 1 Each Tablet 1 Each PO BID Losartan-Hctz 50-12.5 Mg Tab (Losartan/Hydrochlorothiazide) 1 Each Tablet 1 Tab PO QHS Crestor (Rosuvastatin Calcium) 20 Mg Tablet 1 Tab PO 3X/WEEK Aspirin 81 Mg Tab.chew 1 Tab PO QHS Vitals/I & O Vital Sign - Last 24 Hours 09/13/18 09/13/18 09/13/18 09/13/18 11:45 11:49 11:49 12:04 Temp 97.6 97.6 Pulse 66 76 Resp 13 12 14 B/P (MAP) 162/73 (102) 162/73 149/73 Pulse Ox 97 93 O2 Delivery BiPAP/CPAP BiPAP/CPAP Bi-pap BiPAP/CPAP 09/13/18 09/13/18 09/13/18 09/13/18 12:15 12:19 12:23 12:30 Temp 97.6 97.0 97.6 97.0 Pulse 74 60 60 Resp 22 14 12 B/P (MAP) 149/73 (98) 148/61 (90) Pulse Ox 86 99 95 100 O2 Delivery BiPAP/CPAP BiPAP/CPAP BiPAP/CPAP BiPAP/CPAP 09/13/18 09/13/18 09/13/18 09/13/18 12:35 12:45 13:00 13:57 Pulse 60 60 Resp 12 15 B/P (MAP) 123/51 (75) 123/54 (77) Pulse Ox 99 95 98 O2 Delivery Bi-pap BiPAP/CPAP BiPAP/CPAP BiPAP/CPAP O2 Flow Rate 2.0 09/13/18 09/13/18 09/13/18 09/13/18 14:00 15:00 15:47 16:00 Pulse 60 60 Resp 16 14 B/P (MAP) 152/63 (92) 150/64 (92) Pulse Ox 100 99 95 O2 Delivery BiPAP/CPAP BiPAP/CPAP BiPAP/CPAP Bi-pap 09/13/18 09/13/18 09/13/18 09/13/18 16:00 17:00 18:00 18:07 Temp 97.4 97.4 Pulse 60 60 60 Resp 16 16 14 B/P (MAP) 159/59 (92) 169/65 (99) 154/64 (94) Pulse Ox 98 98 97 98 O2 Delivery BiPAP/CPAP BiPAP/CPAP BiPAP/CPAP BiPAP/CPAP 09/13/18 09/13/18 09/13/18 09/13/18 19:00 19:46 20:00 20:00 Temp 98.2 98.2 Pulse 60 60 Resp 15 15 B/P (MAP) 169/69 (102) 176/70 (105) Pulse Ox 98 98 98 O2 Delivery BiPAP/CPAP BiPAP/CPAP Bi-pap BiPAP/CPAP 09/13/18 09/13/18 09/13/18 09/13/18 21:00 22:00 22:10 23:00 Pulse 60 60 60 Resp 16 16 16 B/P (MAP) 170/68 (102) 177/74 (108) 178/76 (110) Pulse Ox 94 97 98 99 O2 Delivery BiPAP/CPAP BiPAP/CPAP BiPAP/CPAP BiPAP/CPAP 09/13/18 09/14/18 09/14/18 09/14/18 23:59 00:00 00:05 01:00 Temp 98.4 98.4 Pulse 60 60 Resp 17 16 B/P (MAP) 174/70 (104) 174/68 (103) Pulse Ox 99 98 100 O2 Delivery Bi-pap BiPAP/CPAP BiPAP/CPAP BiPAP/CPAP 09/14/18 09/14/18 09/14/18 09/14/18 02:00 02:05 03:00 04:00 Temp 98.3 98.3 Pulse 60 60 60 Resp 17 15 17 B/P (MAP) 171/71 (104) 172/69 (103) 181/74 (109) Pulse Ox 97 98 99 100 O2 Delivery BiPAP/CPAP BiPAP/CPAP BiPAP/CPAP BiPAP/CPAP 09/14/18 09/14/18 09/14/18 09/14/18 04:00 04:20 05:00 06:00 Pulse 60 60 Resp 12 20 B/P (MAP) 173/72 (105) 168/73 (104) Pulse Ox 98 99 98 O2 Delivery Bi-pap BiPAP/CPAP BiPAP/CPAP BiPAP/CPAP Intake and Output 09/13/18 09/13/18 09/14/18 15:00 23:00 07:00 Intake Total 305 ml 30 ml 0 ml Output Total 1675 ml 2190 ml 400 ml Balance -1370 ml -2160 ml -400 ml CALLY GUILLEN MD September 14, 2018 09:21
[2018-09-14] MEDS: methylPREDNISolone SOD SUCC PF 40 MG/ML VIAL. IV SCH (09:52)
[2018-09-14] MEDS: ENOXAPARIN 40 MG/0.4 ML SYRINGE. SQ SCH (09:53)
--- NOTE | 2018-09-14 09:57 | PDOC ---
PROGRESS NOTES Assessment Problems Medical Problems: (1) Acute kidney injury Status: Acute (2) CVA (cerebral vascular accident) Status: Acute (3) Elevated troponin Status: Acute (4) Hypoxia Status: Acute Stroke symptoms, no abnormal findings on MRI Metabolic encephalopathy. Plan Continue ICU supportive care Will follow Subjective None Objective Vital Signs Date Time Temp Pulse Resp B/P (MAP) Pulse Ox O2 Delivery O2 Flow Rate FiO2 09/14/18 06:00 60 20 168/73 (104) 98 BiPAP/CPAP 09/14/18 04:00 98.3 98.3 09/13/18 12:35 2.0 Intake and Output 09/14/18 07:00 Intake Total 335 ml Output Total 4265 ml Balance -3930 ml Intake Oral 0 ml IV Total 335 ml Output Urine Total 4265 ml PHYSICAL EXAM Sedated on Precedex, on BiPAP. Follows a few commands, does not know date or location PERRL. EOMI. CN: no focal findings. Muscle tone: normal. Muscle strength: moves all extremities, better on the right than the left DTR: 2+ Plantar reflex: flexor on right, extensor on left Gait: not examined in bed. Sensory exam: no abnormal findings. Cerebellar: not cooperative Review of Relevant I have reviewed the following items jonathon (where applicable) has been applied. Labs Laboratory Tests Test 09/13/18 05:30 09/13/18 21:19 09/14/18 04:30 Sodium Level 142 mmol/L (136-145) 144 mmol/L (136-145) Potassium Level 3.3 mmol/L (3.5-5.1) 4.0 mmol/L (3.5-5.1) Chloride Level 103 mmol/L (98-107) 104 mmol/L (98-107) Carbon Dioxide Level 36 mmol/L (21-32) 38 mmol/L (21-32) Anion Gap 3 (6-14) 2 (6-14) Blood Urea Nitrogen 31 mg/dL (8-26) 29 mg/dL (8-26) Creatinine 1.4 mg/dL (0.7-1.3) 1.1 mg/dL (0.7-1.3) Estimated GFR (Cockcroft-Gault) 47.7 63.0 Glucose Level 119 mg/dL (70-99) 107 mg/dL (70-99) Calcium Level 8.4 mg/dL (8.5-10.1) 8.3 mg/dL (8.5-10.1) Phosphorus Level 2.4 mg/dL (2.6-4.7) 3.6 mg/dL (2.6-4.7) Magnesium Level 2.0 mg/dL (1.8-2.4) 2.0 mg/dL (1.8-2.4) Albumin 2.6 g/dL (3.4-5.0) 2.2 g/dL (3.4-5.0) Urine Random Creatinine 27.5 mg/dL (Not Establ.) Urine Random Total Protein 12.7 mg/dL (Not Establ.) Urine Protein/Creatinine Ratio 462 mg/g (0-200) Laboratory Tests Test 09/13/18 21:19 09/14/18 04:30 Urine Random Creatinine 27.5 mg/dL (Not Establ.) Urine Random Total Protein 12.7 mg/dL (Not Establ.) Urine Protein/Creatinine Ratio 462 mg/g (0-200) Sodium Level 144 mmol/L (136-145) Potassium Level 4.0 mmol/L (3.5-5.1) Chloride Level 104 mmol/L (98-107) Carbon Dioxide Level 38 mmol/L (21-32) Anion Gap 2 (6-14) Blood Urea Nitrogen 29 mg/dL (8-26) Creatinine 1.1 mg/dL (0.7-1.3) Estimated GFR (Cockcroft-Gault) 63.0 Glucose Level 107 mg/dL (70-99) Calcium Level 8.3 mg/dL (8.5-10.1) Phosphorus Level 3.6 mg/dL (2.6-4.7) Magnesium Level 2.0 mg/dL (1.8-2.4) Albumin 2.2 g/dL (3.4-5.0) Microbiology 09/09/18 Blood Culture - Preliminary, Resulted NO GROWTH AFTER 4 DAYS Medications Current Medications Albuterol/ Ipratropium (Duoneb) 3 ml STK-MED ONCE .ROUTE ; Start 09/09/18 at 18:09; Stop 09/09/18 at 18:10; Status DC Ondansetron HCl (Zofran) 4 mg PRN Q8HRS PRN IV NAUSEA/VOMITING 1ST CHOICE; Start 09/09/18 at 21:00; Stop 09/10/18 at 20:59; Status DC Morphine Sulfate (Morphine Sulfate) 2 mg PRN Q2HR PRN IV SEVERE PAIN; Start 09/09/18 at 21:00; Stop 09/10/18 at 20:59; Status DC Acetaminophen (Tylenol) 650 mg PRN Q4HRS PRN PO FEVER; Start 09/09/18 at 21:00; Stop 09/10/18 at 20:59; Status DC Hydrochlorothiazide (Microzide) 12.5 mg DAILY PO Last administered on 09/12/18at 12:26; Start 09/10/18 at 11:00 Aspirin (Children'S Aspirin) 81 mg QHS PO Last administered on 09/12/18at 20:52; Start 09/10/18 at 21:00 Levothyroxine Sodium (Synthroid) 50 mcg DAILY06 PO Last administered on 09/12/18at 06:08; Start 09/11/18 at 06:00 Methylprednisolone Sodium Succinate (SOLU-Medrol 125MG VIAL) 60 mg BID IV Last administered on 09/11/18at 20:32; Start 09/10/18 at 14:00; Stop 09/12/18 at 10:02; Status DC Albuterol Sulfate (Ventolin Neb Soln) 2.5 mg TID NEB Last administered on 09/14/18at 08:21; Start 09/10/18 at 14:00 Albuterol Sulfate (Ventolin Neb Soln) 2.5 mg PRN Q2HR PRN NEB DYSPNEA; Start 09/10/18 at 13:45 Magnesium Sulfate 50 ml @ 25 mls/hr PRN DAILY PRN IV for Mag < 1.7 on am labs; Start 09/11/18 at 11:30 Lorazepam (Ativan Inj) 1 mg PRN Q2HR PRN IV ANXIETY / AGITATION Last adm inistered on 09/13/18at 08:33; Start 09/11/18 at 17:45; Stop 09/13/18 at 14:19; Status DC Lorazepam (Ativan Inj) 2 mg PRN Q2HR PRN IV ANXIETY / AGITATION Last administered on 09/12/18at 23:29; Start 09/11/18 at 17:45; Stop 09/13/18 at 14:19; Status DC Enoxaparin Sodium (Lovenox 40mg Syringe) 40 mg Q24H SQ Last administered on 09/13/18at 08:34; Start 09/12/18 at 09:00 Methylprednisolone Sodium Succinate (SOLU-Medrol 40MG VIAL) 40 mg DAILY IV Last administered on 09/13/18at 08:33; Start 09/13/18 at 09:00 Dextrose 1,000 ml @ 100 mls/hr Q10H IV Last administered on 09/13/18at 00:17; Start 09/12/18 at 12:00; Stop 09/13/18 at 07:59; Status DC Haloperidol Lactate (Haldol Inj) 5 mg PRN Q6HRS PRN IVP AGITATION Last administered on 09/13/18at 14:45; Start 09/13/18 at 02:45 Potassium Phosphate 15 mmol/ Sodium Chloride 255 ml @ 127.5 mls/ hr 1X ONCE IV Last administered on 09/13/18at 08:33; Start 09/13/18 at 08:30; Stop 09/13/18 at 10:29; Status DC Potassium Chloride/Water 100 ml @ 100 mls/hr Q1H IV Last administered on 09/13/18at 14:09; Start 09/13/18 at 08:30; Stop 09/13/18 at 10:29; Status DC Lidocaine/ Epinephrine (LIDOCAINE 2%-EPI 1:100,000 multi-dose) 20 ml 1X ONCE IJ Last administered on 09/13/18 11:12; Start 09/13/18 at 09:15; Stop 09/13/18 at 09:16; Status DC Bacitracin 51589 unit/Sodium Chloride 250 ml @ 0 mls/hr 1X ONCE IRR Last administered on 09/13/18 11:12; Start 09/13/18 at 09:15; Stop 09/13/18 at 09:16; Status DC Cefazolin Sodium 50 ml @ 100 mls/hr 1X ONCE IV Last administered on 09/13/18at 11:11; Start 09/13/18 at 09:15; Stop 09/13/18 at 09:44; Status DC Lidocaine/ Epinephrine (LIDOCAINE 2%-EPI 1:100,000 multi-dose) 20 ml STK-MED ONCE .ROUTE ; Start 09/13/18 at 09:10; Stop 09/13/18 at 09:11; Status DC Cefazolin Sodium 50 ml @ As Directed STK-MED ONCE IV ; Start 09/13/18 at 09:10; Stop 09/13/18 at 09:11; Status DC Midazolam HCl (Versed) 2 mg STK-MED ONCE .ROUTE ; Start 09/13/18 at 09:35; Stop 09/13/18 at 09:36; Status DC Propofol 20 ml @ As Directed STK-MED ONCE IV ; Start 09/13/18 at 09:35; Stop 09/13/18 at 09:36; Status DC Propofol 50 ml @ As Directed STK-MED ONCE IV ; Start 09/13/18 at 09:35; Stop 09/13/18 at 09:36; Status DC Ketamine HCl (Ketamine) 50 mg STK-MED ONCE .ROUTE ; Start 09/13/18 at 09:35; Stop 09/13/18 at 09:36; Status DC Lidocaine HCl (Lidocaine Pf 2% Vial) 5 ml STK-MED ONCE .ROUTE ; Start 09/13/18 at 09:38; Stop 09/13/18 at 09:39; Status DC Dexmedetomidine HCl 200 mcg/ Sodium Chloride 50 ml @ 0 mls/hr CONT PRN IV PER PROTOCOL Last administered on 09/13/18at 22:18; Start 09/13/18 at 10:30 Sodium Chloride 500 ml @ 500 mls/hr 1X PRN PRN IV SEE COMMENTS; Start 09/13/18 at 10:30 Info (No Anticoagulant Therapy) 1 ea CONT PRN PRN MC PER PROTOCOL; Start 09/13/18 at 11:45 Cefazolin Sodium 1 gm/Dextrose 50 ml @ 100 mls/hr 1X ONCE IV ; Start 09/13/18 at 12:00; Stop 09/13/18 at 12:29; Status UNV Oxycodone/ Acetaminophen (Percocet 5/325) 1 tab PRN Q4HRS PRN PO MILD PAIN 1-3; Start 09/13/18 at 11:45 Cefazolin Sodium (Ancef) 1 gm 1X ONCE IVP Last administered on 09/13/18at 17: 17; Start 09/13/18 at 17:00; Stop 09/13/18 at 17:01; Status DC Furosemide (Lasix) 40 mg 1X ONCE IVP Last administered on 09/13/18at 12:21; Start 09/13/18 at 12:30; Stop 09/13/18 at 12:31; Status DC Hydralazine HCl (Apresoline Inj) 10 mg PRN Q4HRS PRN IVP ELEVATED BP, SEE COMMENTS; Start 09/13/18 at 12:00 Ceftriaxone Sodium (Rocephin) 1 gm Q24H IVP Last administered on 09/13/18at 14:50; Start 09/13/18 at 15:00 Lactobacillus Rhamnosus (Culturelle) 1 cap BID PO ; Start 09/14/18 at 09:00 Active Scripts Active Reported Hydrochlorothiazide Tablet (Hydrochlorothiazide) 12.5 Mg Tablet 12.5 Mg PO DAILY Levothyroxine Sodium 50 Mcg Tablet 1 Tab PO DAILY Amiodarone Hcl 200 Mg Tablet 1 Tab PO DAILY [Tylenol Arthritis] PO PRN PRN Calcium + Vitamin D Tablet (Calcium Carbonate/Vitamin D3) 1 Each Tablet 1 Each PO BID Losartan-Hctz 50-12.5 Mg Tab (Losartan/Hydrochlorothiazide) 1 Each Tablet 1 Tab PO QHS Crestor (Rosuvastatin Calcium) 20 Mg Tablet 1 Tab PO 3X/WEEK Aspirin 81 Mg Tab.chew 1 Tab PO QHS Vitals/I & O Vital Sign - Last 24 Hours 09/13/18 09/13/18 09/13/18 09/13/18 11:45 11:49 11:49 12:04 Temp 97.6 97.6 Pulse 66 76 Resp 13 12 14 B/P (MAP) 162/73 (102) 162/73 149/73 Pulse Ox 97 93 O2 Delivery BiPAP/CPAP BiPAP/CPAP Bi-pap BiPAP/CPAP 09/13/18 09/13/18 09/13/18 09/13/18 12:15 12:19 12:23 12:30 Temp 97.6 97.0 97.6 97.0 Pulse 74 60 60 Resp 22 14 12 B/P (MAP) 149/73 (98) 148/61 (90) Pulse Ox 86 99 95 100 O2 Delivery BiPAP/CPAP BiPAP/CPAP BiPAP/CPAP BiPAP/CPAP 09/13/18 09/13/18 09/13/18 09/13/18 12:35 12:45 13:00 13:57 Pulse 60 60 Resp 12 15 B/P (MAP) 123/51 (75) 123/54 (77) Pulse Ox 99 95 98 O2 Delivery Bi-pap BiPAP/CPAP BiPAP/CPAP BiPAP/CPAP O2 Flow Rate 2.0 09/13/18 09/13/18 09/13/18 09/13/18 14:00 15:00 15:47 16:00 Pulse 60 60 Resp 16 14 B/P (MAP) 152/63 (92) 150/64 (92) Pulse Ox 100 99 95 O2 Delivery BiPAP/CPAP BiPAP/CPAP BiPAP/CPAP Bi-pap 09/13/18 09/13/18 09/13/18 09/13/18 16:00 17:00 18:00 18:07 Temp 97.4 97.4 Pulse 60 60 60 Resp 16 16 14 B/P (MAP) 159/59 (92) 169/65 (99) 154/64 (94) Pulse Ox 98 98 97 98 O2 Delivery BiPAP/CPAP BiPAP/CPAP BiPAP/CPAP BiPAP/CPAP 09/13/18 09/13/18 09/13/18 09/13/18 19:00 19:46 20:00 20:00 Temp 98.2 98.2 Pulse 60 60 Resp 15 15 B/P (MAP) 169/69 (102) 176/70 (105) Pulse Ox 98 98 98 O2 Delivery BiPAP/CPAP BiPAP/CPAP Bi-pap BiPAP/CPAP 09/13/18 09/13/18 09/13/18 09/13/18 21:00 22:00 22:10 23:00 Pulse 60 60 60 Resp 16 16 16 B/P (MAP) 170/68 (102) 177/74 (108) 178/76 (110) Pulse Ox 94 97 98 99 O2 Delivery BiPAP/CPAP BiPAP/CPAP BiPAP/CPAP BiPAP/CPAP 09/13/18 09/14/18 09/14/18 09/14/18 23:59 00:00 00:05 01:00 Temp 98.4 98.4 Pulse 60 60 Resp 17 16 B/P (MAP) 174/70 (104) 174/68 (103) Pulse Ox 99 98 100 O2 Delivery Bi-pap BiPAP/CPAP BiPAP/CPAP BiPAP/CPAP 5/28/19 5/28/19 5/28/19 5/28/19 02:00 02:05 03:00 04:00 Temp 98.3 98.3 Pulse 60 60 60 Resp 17 15 17 B/P (MAP) 171/71 (104) 172/69 (103) 181/74 (109) Pulse Ox 97 98 99 100 O2 Delivery BiPAP/CPAP BiPAP/CPAP BiPAP/CPAP BiPAP/CPAP 09/14/18 09/14/18 09/14/18 09/14/18 04:00 04:20 05:00 06:00 Pulse 60 60 Resp 12 20 B/P (MAP) 173/72 (105) 168/73 (104) Pulse Ox 98 99 98 O2 Delivery Bi-pap BiPAP/CPAP BiPAP/CPAP BiPAP/CPAP Intake and Output 09/13/18 09/13/18 09/14/18 15:00 23:00 07:00 Intake Total 305 ml 30 ml 0 ml Output Total 1675 ml 2190 ml 400 ml Balance -1370 ml -2160 ml -400 ml Images MRI of the brain without contrast 09/10/2018 Images through the study are degraded by patient motion. There is generalized parenchymal atrophy. Patchy, confluent and multiple focal areas of increased signal intensity are seen within the periventricular and subcortical white matter of both cerebral hemispheres along with the valentina on the FLAIR and T2-weighted images consistent with areas of extensive small vessel ischemic disease. Old areas of infarction are seen involving the right cerebellar hemisphere. These measure 3 mm to 1.5 cm in size. A 7 mm old area of lacunar infarction is seen involving the left thalamus. An area of encephalomalacia is seen involving the left frontal lobe. This corresponds to the abnormality seen on the patient's CT scan. It measures 3.2 cm in size. No acute parenchymal abnormality is seen. No extra-axial fluid collection is seen. There is no MRI evidence of acute ischemia/infarction. Mild to moderate mucosal thickening is seen throughout the paranasal sinuses. There are small bilateral mastoid effusions. Normal flow voids are seen within the major vascular structures surrounding the brain parenchyma. Impression: No acute parenchymal abnormality is seen. Carotid ultrasound 09/10/2018. Reason for exam: Altered mental status. CVA. Color Doppler and spectral waveform analysis was performed along with real-time grayscale technique. Carotid stenoses were graded per NASCETcriteria. Velocity measurements were obtained in centimeters per second. FINDINGS: There is some intimal thickening on each side with mild plaque in the carotid bulbs. Flow in the vertebral arteries is antegrade. The following velocity measurements were obtained: CCA peak: Right, 88, left, 96. ICA peak: Right, 122, left, 174. ECA peak: Right, 94, left, 139. IMPRESSION: Some plaque is present bilaterally. There is some velocity elevation in the mid left ICA suggesting 50-69 percent narrowing. ELIZABETH GARCÍA MD September 14, 2018 09:57
--- NOTE | 2018-09-14 10:57 | CARD ---
MR#: [id number] Date of Study: 09/13/2018 Ordering Physician: PRADEEP VIVAS, Referring Physician: JACQUES CHRISTY Tech: APPROVED REPORT HISTORY The Patient is a 88 year-old male with a history of high grade AVB and mental status changes and fall s PROCEDURES Insertion Dual Chamber Pacemaker SEDATION BY ANESTHESIA FL TIME 2.9 MINUTES DOSE 18.3847 Gycm2 30 mL of 2% lidocaine was infiltrated into the skin and subcutaneous tissues for local anesthesia. A n incision was made over the left infraclavicular fossa and using blunt dissection and cautery a pock et was created. Venous access was obtained in the left subclavian vein and 9 and 7 [place] sheaths we re inserted. Subsequently, a [employer] Dequan bipolar active fixation right ventricular lead model Tendril STS 2088TC/58 c m, SN [id number] was advanced under fluoroscopic guidance and the tip was positioned in the right vent ricular apex. Following this, a [employer] Dequan bipolar active fixation right atrial lead model Tendril STS 2088TC/52 cm, SN [id number] was placed in the right atrial appendage under fluoroscopy guidance. The leads were secured into place and were attached to a [employer] Dequan dual-chamber permanent pacemaker [facility] model Assurity DR 2240, SN [id number]. This was placed in the pocket that was subsequently closed in 2 layers. Hemostasis was secured. At the end of procedure, the right ventricular lead showed sensing amplitude of 3.1 mV, impedance of 530 ohms and a threshold of 0.75volts. The right atrial lead showed a sensing amplitude of 2.5 marry volts, impedance of 400 ohms and a threshold of 1.25 volts. Patient tolerated the procedure well. Th ere were no immediate complications. CONCLUSION Successful insertion of a [employer] Dequan dual chamber pacemaker for high grade AVB and falls. Signed by : Pradeep Vivas, Electronically Approved : 09/13/2018 12:14:33
--- NOTE | 2018-09-14 11:38 | PDOC ---
PULMONARY PROGRESS NOTES Subjective ON BIPAP OFF PRECEDEX FOLLOWING COMMANDS ABG ADEQUATE S/P PACER 09/13 Vitals Vital Signs Date Time Temp Pulse Resp B/P (MAP) Pulse Ox O2 Delivery O2 Flow Rate FiO2 09/14/18 06:00 60 20 168/73 (104) 98 BiPAP/CPAP 09/14/18 04:00 98.3 98.3 09/13/18 12:35 2.0 General: Lethargic Lungs: Crackles Cardiovascular: S1, S2 Abdomen: Soft, Non-tender, Other (no mass) Extremities: Other (1+edema) Skin: Warm Labs Laboratory Tests Test 09/13/18 05:30 09/13/18 21:19 09/14/18 04:30 Sodium Level 142 mmol/L (136-145) 144 mmol/L (136-145) Potassium Level 3.3 mmol/L (3.5-5.1) 4.0 mmol/L (3.5-5.1) Chloride Level 103 mmol/L (98-107) 104 mmol/L (98-107) Carbon Dioxide Level 36 mmol/L (21-32) 38 mmol/L (21-32) Anion Gap 3 (6-14) 2 (6-14) Blood Urea Nitrogen 31 mg/dL (8-26) 29 mg/dL (8-26) Creatinine 1.4 mg/dL (0.7-1.3) 1.1 mg/dL (0.7-1.3) Estimated GFR (Cockcroft-Gault) 47.7 63.0 Glucose Level 119 mg/dL (70-99) 107 mg/dL (70-99) Calcium Level 8.4 mg/dL (8.5-10.1) 8.3 mg/dL (8.5-10.1) Phosphorus Level 2.4 mg/dL (2.6-4.7) 3.6 mg/dL (2.6-4.7) Magnesium Level 2.0 mg/dL (1.8-2.4) 2.0 mg/dL (1.8-2.4) Albumin 2.6 g/dL (3.4-5.0) 2.2 g/dL (3.4-5.0) Urine Random Creatinine 27.5 mg/dL (Not Establ.) Urine Random Total Protein 12.7 mg/dL (Not Establ.) Urine Protein/Creatinine Ratio 462 mg/g (0-200) Laboratory Tests Test 09/13/18 21:19 09/14/18 04:30 Urine Random Creatinine 27.5 mg/dL (Not Establ.) Urine Random Total Protein 12.7 mg/dL (Not Establ.) Urine Protein/Creatinine Ratio 462 mg/g (0-200) Sodium Level 144 mmol/L (136-145) Potassium Level 4.0 mmol/L (3.5-5.1) Chloride Level 104 mmol/L (98-107) Carbon Dioxide Level 38 mmol/L (21-32) Anion Gap 2 (6-14) Blood Urea Nitrogen 29 mg/dL (8-26) Creatinine 1.1 mg/dL (0.7-1.3) Estimated GFR (Cockcroft-Gault) 63.0 Glucose Level 107 mg/dL (70-99) Calcium Level 8.3 mg/dL (8.5-10.1) Phosphorus Level 3.6 mg/dL (2.6-4.7) Magnesium Level 2.0 mg/dL (1.8-2.4) Albumin 2.2 g/dL (3.4-5.0) Medications Active Scripts Medications Dose Route/Sig Max Daily Dose Days Date Category Hydrochlorothiazide Tablet (Hydrochlorothiazide) 12.5 Mg Tablet 12.5 Mg PO DAILY 09/09/18 Reported Levothyroxine Sodium 50 Mcg Tablet 1 Tab PO DAILY 09/09/18 Reported Amiodarone Hcl 200 Mg Tablet 1 Tab PO DAILY 10/16/17 Reported [Tylenol Arthritis] PO PRN PRN 08/28/17 Reported Calcium + Vitamin D Tablet (Calcium Carbonate/Vitamin D3) 1 Each Tablet 1 Each PO BID 08/28/17 Reported Losartan-Hctz 50-12.5 Mg Tab (Losartan/Hydrochlorothiazide) 1 Each Tablet 1 Tab PO QHS 08/28/17 Reported Crestor (Rosuvastatin Calcium) 20 Mg Tablet 1 Tab PO 3X/WEEK 08/28/17 Reported Aspirin 81 Mg Tab.chew 1 Tab PO QHS 08/28/17 Reported Comments CXR 09/14 BILATERAL INFILTRATES. R> LEFT Impression . MPRESSION: 1. Acute hypoxemic respiratory failure. MULTIFATORIAL 2. Chronic obstructive pulmonary disease AECOPD? 3. Tpmbm-[id number] renal insufficiency. 4. Azowg-oa-hvolcvr encephalopathy, suspect multifactorial 5. Paroxysmal atrial fibrillation status post cardioversion in the past. CHB 6. Hypothyroidism. 7. S/P PACER 8. ABNORMAL CXR suspect CHF/ Pneumonia 9. 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 BIPAP MONITOR MS OFF PRECEDEX EMPIRIC ANTIBX LASIX PER CARD PRN BLANCA D/W RN/RT SARAH ROY MD September 14, 2018 11:38
--- NOTE | 2018-09-14 12:02 | RAD ---
Portable chest, 09/14/2018: HISTORY: Post pacemaker insertion Comparison is made to yesterday's study. A left-sided transvenous pacing device remains in place with 2 leads extending into the right heart. The heart is at the upper limits of normal in size and unchanged. There is calcific plaquing the aorta. There is blunting of the lateral costophrenic angles bilaterally suggesting small ongoing pleural effusions with mild underlying bibasilar atelectasis. There is no evidence of pneumothorax. No new abnormality is seen. IMPRESSION: No significant change since yesterday's study. Electronically signed by: Yassine Field MD (09/14/2018 12:00 PM) [facility]
--- NOTE | 2018-09-14 12:09 | PDOC ---
TRUE ALEXANDER SEAM STEAMER 09/14/18 1209: CARDIO Progress Notes Date and Time Date of Service 09/14/18 Time of Evaluation 1150 Subjective Subjective: No Chest Pain, No shortness of breath Vitals Vitals Vital Signs Date Time Temp Pulse Resp B/P (MAP) Pulse Ox O2 Delivery O2 Flow Rate FiO2 09/14/18 06:00 60 20 168/73 (104) 98 BiPAP/CPAP 09/14/18 04:00 98.3 98.3 09/13/18 12:35 2.0 Weight Weight [ ] Input and Output Intake and Output Intake and Output 09/14/18 07:00 Intake Total 335 ml Output Total 4265 ml Balance -3930 ml Intake Oral 0 ml IV Total 335 ml Output Urine Total 4265 ml Laboratory Labs Laboratory Tests Test 09/13/18 21:19 09/14/18 04:30 Urine Random Creatinine 27.5 mg/dL (Not Establ.) Urine Random Total Protein 12.7 mg/dL (Not Establ.) Urine Protein/Creatinine Ratio 462 mg/g (0-200) Sodium Level 144 mmol/L (136-145) Potassium Level 4.0 mmol/L (3.5-5.1) Chloride Level 104 mmol/L (98-107) Carbon Dioxide Level 38 mmol/L (21-32) Anion Gap 2 (6-14) Blood Urea Nitrogen 29 mg/dL (8-26) Creatinine 1.1 mg/dL (0.7-1.3) Estimated GFR (Cockcroft-Gault) 63.0 Glucose Level 107 mg/dL (70-99) Calcium Level 8.3 mg/dL (8.5-10.1) Phosphorus Level 3.6 mg/dL (2.6-4.7) Magnesium Level 2.0 mg/dL (1.8-2.4) Albumin 2.2 g/dL (3.4-5.0) Microbiology Micro Microbiology 09/09/18 Blood Culture - Preliminary, Resulted NO GROWTH AFTER 4 DAYS Physical Exam HEENT: Neck Supple W Full Motion Chest: Symmetric LUNGS: Other (left chest pectoral PPM insertion site clean and dry. No hematoma present. Fine expiratory wheezes) Abdomen: Soft N/T Extremities: No Edema Neurology: alert, follow commands Assessment Assessment 1. High grade AVB; s/p PPM. Device check with normal function and CXR without acute findings this morning 2. HTN; labile 3. AJY JAY on CKD; better 4. PAFIB s/p previous CV 5. Acute on chronic respiratory failure -improved 6. Metabolic encephalopathy; improved 7. Hypothyroidism; On levo thyroxine Recommendations May downgrade to CVC PT/OT as patient lives at home alone ASA for stroke prevention given increased risk for falls Resume Amiodarone and losartan JEN TRUJILLO MD 09/14/18 2152: CARDIO Progress Notes Assessment Assessment Patient seen and examined. Agree with MACHINE TECH's assessment and plan. s/p PPM yesterday, doing well CXR without pneumothorax Device interrogation normal OK for transfer out of ICU TRUE ALEXANDER APRN September 14, 2018 12:09 JEN TRUJILLO MD September 14, 2018 21:52
[2018-09-14] MEDS ORDERED: hydrALAZINE 20 MG/ML VIAL. IVP PRN (13:30)
[2018-09-14] MEDS: AMIODARONE HCL 200 MG TABLET. PO SCH (14:06)
[2018-09-14] MEDS: hydroCHLOROthiazide 12.5 MG CAPSULE PO SCH (14:07)
[2018-09-14] MEDS: LOSARTAN POTASSIUM 50 MG TABLET. PO SCH (14:08)
[2018-09-14] MEDS: cefTRIAXone IV Push 1 GM VIAL. IVP SCH (14:10)
--- NOTE | 2018-09-14 16:09 | NUR ---
SS following for discharge planning. SS reviewed pt chart. Pt is from home and is currently requiring oxygen. PT recommended fdc unit. SS met with pt to discuss discharge planning and fdc unit. Pt requested that SS contact his daughters and discuss. He reported that he would do whatever they decided. SS contacted pt's daughter and Keya CROOKS, , and left voicemail requesting return call to discuss discharge planning.
--- NOTE | 2018-09-14 16:34 | NUR ---
Patient transferred to room 254 per w/c with all belongings from room. Patient wearing upper and lower dentures.
--- NOTE | 2018-09-14 16:43 | NUR ---
PT ARRIVED TO 254 AT 1640 VIA WHEELCHAIR WITH TRANSPORT STAFF. PT ALERT AND STABLE UPON ARRIVAL, DRESSING TO L CHEST C/D/I WITH SLING PRESENT TO THAT ARM. PT DENIES ANY PAIN OR DISCOMFORT AT THIS TIME. PT SETTLED INTO ROOM AND THIS [employer] ETL DEVELOPER AGREES WITH PREVIOUS ASSESSMENTS, RT PAGED TO BRING BIPAP MACHINE FROM ICU RM 108 FOR PT.
[2018-09-14 20:04] LABS: PCO2 ABG 60 mmHg (35-46)
[2018-09-14 20:05] LABS: FIO2 ABG 30
[2018-09-14] MEDS: ASPIRIN CHEWABLE 81 MG TABLET. PO SCH (21:47)
[2018-09-15 03:15] VITALS: BP 157/69
--- NOTE | 2018-09-15 04:40 | NUR ---
Pt off Bipap at 0405 d/t unable to tolerate any longer.
[2018-09-15] MEDS: LEVOTHYROXINE 50 MCG TABLET PO SCH (06:36)
[2018-09-15 07:00] VITALS: BP 170/70
[2018-09-15] MEDS: hydroCHLOROthiazide 12.5 MG CAPSULE PO SCH (07:23)
[2018-09-15] MEDS: LOSARTAN POTASSIUM 50 MG TABLET. PO SCH (07:23)
[2018-09-15] MEDS: AMIODARONE HCL 200 MG TABLET. PO SCH (07:23)
[2018-09-15] MEDS: ALBUTEROL SULFATE 2.5 MG/3 ML NEBU. NEB SCH ×3 (07:36→21:03)
--- NOTE | 2018-09-15 08:02 | PDOC ---
PROGRESS NOTES Chief Complaint Chief Complaint Stroke symptoms shortness of breath Acute hypoxemic respiratory failure. Chronic obstructive pulmonary disease Awisu-vd-exomjvt renal insufficiency. Agilm-sq-wqvgpdt encephalopathy, suspect multifactorial, resolved. Paroxysmal atrial fibrillation status post cardioversion in the past. CHB s/p pacemaker insertion Hypothyroidism. History of Present Illness History of Present Illness Patient seen and examined in the cardiac unit Discussed with RN He was on BIPAP overnight, sitting in chair now, has not needed haldol or precedex for 24 hours, has been less agitated since then. No bradycardia Reviewed subspecialist notes, will look into rehabilitation, d/w 36 minutes spent on patient care Vitals Vitals Vital Signs Date Time Temp Pulse Resp B/P (MAP) Pulse Ox O2 Delivery O2 Flow Rate FiO2 09/15/18 07:37 100 Nasal Cannula 3.0 09/15/18 07:23 70 188/80 09/15/18 07:00 98.6 18 98.6 Physical Exam General: Alert, mild distress Heart: Regular rate, Normal S1, Normal S2, Other (heart rate slightly irregul ar) Lungs: Crackles Abdomen: Soft Extremities: No clubbing, No cyanosis, Other (1+ pitting pedal edema) Skin: No rashes, No breakdown Labs LABS Laboratory Tests Test 09/14/18 08:15 O2 Saturation 95 % (92-99) Arterial Blood pH 7.44 (7.35-7.45) Arterial Blood pCO2 at Patient Temp 60 mmHg (35-46) Arterial Blood pO2 at Patient Temp 77 mmHg (65-108) Arterial Blood HCO3 40 mmol/L (21-28) Arterial Blood Base Excess 14 mmol/L (-3-3) FiO2 30 Assessment and Plan Assessmemt and Plan Problems Medical Problems: (1) Acute kidney injury Status: Acute (2) CVA (cerebral vascular accident) Status: Acute (3) Elevated troponin Status: Acute (4) Hypoxia Status: Acute Comment Review of Relevant I have reviewed the following items jonathon (where applicable) has been applied. Labs Laboratory Tests Test 09/13/18 21:19 09/14/18 04:30 09/14/18 08:15 Urine Random Creatinine 27.5 mg/dL (Not Establ.) Urine Random Total Protein 12.7 mg/dL (Not Establ.) Urine Protein/Creatinine Ratio 462 mg/g (0-200) Sodium Level 144 mmol/L (136-145) Potassium Level 4.0 mmol/L (3.5-5.1) Chloride Level 104 mmol/L (98-107) Carbon Dioxide Level 38 mmol/L (21-32) Anion Gap 2 (6-14) Blood Urea Nitrogen 29 mg/dL (8-26) Creatinine 1.1 mg/dL (0.7-1.3) Estimated GFR (Cockcroft-Gault) 63.0 Glucose Level 107 mg/dL (70-99) Calcium Level 8.3 mg/dL (8.5-10.1) Phosphorus Level 3.6 mg/dL (2.6-4.7) Magnesium Level 2.0 mg/dL (1.8-2.4) Albumin 2.2 g/dL (3.4-5.0) O2 Saturation 95 % (92-99) Arterial Blood pH 7.44 (7.35-7.45) Arterial Blood pCO2 at Patient Temp 60 mmHg (35-46) Arterial Blood pO2 at Patient Temp 77 mmHg (65-108) Arterial Blood HCO3 40 mmol/L (21-28) Arterial Blood Base Excess 14 mmol/L (-3-3) FiO2 30 Laboratory Tests Test 09/14/18 08:15 O2 Saturation 95 % (92-99) Arterial Blood pH 7.44 (7.35-7.45) Arterial Blood pCO2 at Patient Temp 60 mmHg (35-46) Arterial Blood pO2 at Patient Temp 77 mmHg (65-108) Arterial Blood HCO3 40 mmol/L (21-28) Arterial Blood Base Excess 14 mmol/L (-3-3) FiO2 30 Microbiology 09/09/18 Blood Culture - Final, Complete NO GROWTH AFTER 5 DAYS Medications Current Medications Albuterol/ Ipratropium (Duoneb) 3 ml STK-MED ONCE .ROUTE ; Start 09/09/18 at 18:09; Stop 09/09/18 at 18:10; Status DC Ondansetron HCl (Zofran) 4 mg PRN Q8HRS PRN IV NAUSEA/VOMITING 1ST CHOICE; Start 09/09/18 at 21:00; Stop 09/10/18 at 20:59; Status DC Morphine Sulfate (Morphine Sulfate) 2 mg PRN Q2HR PRN IV SEVERE PAIN; Start 09/09/18 at 21:00; Stop 09/10/18 at 20:59; Status DC Acetaminophen (Tylenol) 650 mg PRN Q4HRS PRN PO FEVER; Start 09/09/18 at 21:00; Stop 09/10/18 at 20:59; Status DC Hydrochlorothiazide (Microzide) 12.5 mg DAILY PO Last administered on 09/15/18at 07:23; Start 09/10/18 at 11:00 Aspirin (Children'S Aspirin) 81 mg QHS PO Last administered on 09/14/18at 21:47; Start 09/10/18 at 21:00 Levothyroxine Sodium (Synthroid) 50 mcg DAILY06 PO Last administered on 09/15/18at 06:36; Start 09/11/18 at 06:00 Methylprednisolone Sodium Succinate (SOLU-Medrol 125MG VIAL) 60 mg BID IV Last administered on 09/11/18at 20:32; Start 09/10/18 at 14:00; Stop 09/12/18 at 10:02; Status DC Albuterol Sulfate (Ventolin Neb Soln) 2.5 mg TID NEB Last administered on 09/15/18at 07:36; Start 09/10/18 at 14:00 Albuterol Sulfate (Ventolin Neb Soln) 2.5 mg PRN Q2HR PRN NEB DYSPNEA; Start 09/10/18 at 13:45 Magnesium Sulfate 50 ml @ 25 mls/hr PRN DAILY PRN IV for Mag < 1.7 on am labs; Start 09/11/18 at 11:30 Lorazepam (Ativan Inj) 1 mg PRN Q2HR PRN IV ANXIETY / AGITATION Last administered on 09/13/18at 08:33; Start 09/11/18 at 17:45; Stop 09/13/18 at 14:19; Status DC Lorazepam (Ativan Inj) 2 mg PRN Q2HR PRN IV ANXIETY / AGITATION Last administered on 09/12/18at 23:29; Start 09/11/18 at 17:45; Stop 09/13/18 at 14:19; Status DC Enoxaparin Sodium (Lovenox 40mg Syringe) 40 mg Q24H SQ Last administered on 09/14/18at 09:53; Start 09/12/18 at 09:00; Stop 09/14/18 at 12:12; Status DC Methylprednisolone Sodium Succinate (SOLU-Medrol 40MG VIAL) 40 mg DAILY IV Last administered on 09/14/18at 09:52; Start 09/13/18 at 09:00 Dextrose 1,000 ml @ 100 mls/hr Q10H IV Last administered on 09/13/18at 00:17; Start 09/12/18 at 12:00; Stop 09/13/18 at 07:59; Status DC Haloperidol Lactate (Haldol Inj) 5 mg PRN Q6HRS PRN IVP AGITATION Last administered on 09/13/18at 14:45; Start 09/13/18 at 02:45 Potassium Phosphate 15 mmol/ Sodium Chloride 255 ml @ 127.5 mls/ hr 1X ONCE IV Last administered on 09/13/18at 08:33; Start 09/13/18 at 08:30; Stop 09/13/18 at 10:29; Status DC Potassium Chloride/Water 100 ml @ 100 mls/hr Q1H IV Last administered on 09/13/18at 14:09; Start 09/13/18 at 08:30; Stop 09/13/18 at 10:29; Status DC Lidocaine/ Epinephrine (LIDOCAINE 2%-EPI 1:100,000 multi-dose) 20 ml 1X ONCE IJ Last administered on 09/13/18at 11:12; Start 09/13/18 at 09:15; Stop 09/13/18 at 09:16; Status DC Bacitracin 74536 unit/Sodium Chloride 250 ml @ 0 mls/hr 1X ONCE IRR Last administered on 09/13/18at 11:12; Start 09/13/18 at 09:15; Stop 09/13/18 at 09:16; Status DC Cefazolin Sodium 50 ml @ 100 mls/hr 1X ONCE IV Last administered on 09/13/18at 11:11; Start 09/13/18 at 09:15; Stop 09/13/18 at 09:44; Status DC Lidocaine/ Epinephrine (LIDOCAINE 2%-EPI 1:100,000 multi-dose) 20 ml STK-MED ONCE .ROUTE ; Start 09/13/18 at 09:10; Stop 09/13/18 at 09:11; Status DC Cefazolin Sodium 50 ml @ As Directed STK-MED ONCE IV ; Start 09/13/18 at 09:10; Stop 09/13/18 at 09:11; Status DC Midazolam HCl (Versed) 2 mg STK-MED ONCE .ROUTE ; Start 09/13/18 at 09:35; Stop 09/13/18 at 09:36; Status DC Propofol 20 ml @ As Directed STK-MED ONCE IV ; Start 09/13/18 at 09:35; Stop 09/13/18 at 09:36; Status DC Propofol 50 ml @ As Directed STK-MED ONCE IV ; Start 09/13/18 at 09:35; Stop 09/13/18 at 09:36; Status DC Ketamine HCl (Ketamine) 50 mg STK-MED ONCE .ROUTE ; Start 09/13/18 at 09:35; Stop 09/13/18 at 09:36; Status DC Lidocaine HCl (Lidocaine Pf 2% Vial) 5 ml STK-MED ONCE .ROUTE ; Start 09/13/18 at 09:38; Stop 09/13/18 at 09:39; Status DC Dexmedetomidine HCl 200 mcg/ Sodium Chloride 50 ml @ 0 mls/hr CONT PRN IV PER PROTOCOL Last administered on 09/13/18at 22:18; Start 09/13/18 at 10:30 Sodium Chloride 500 ml @ 500 mls/hr 1X PRN PRN IV SEE COMMENTS; Start 09/13/18 at 10:30 Info (No Anticoagulant Therapy) 1 ea CONT PRN PRN MC PER PROTOCOL; Start 09/13/18 at 11:45 Cefazolin Sodium 1 gm/Dextrose 50 ml @ 100 mls/hr 1X ONCE IV ; Start 09/13/18 at 12:00; Stop 09/13/18 at 12:29; Status UNV Oxycodone/ Acetaminophen (Percocet 5/325) 1 tab PRN Q4HRS PRN PO MILD PAIN 1-3; Start 09/13/18 at 11:45 Cefazolin Sodium (Ancef) 1 gm 1X ONCE IVP Last administered on 09/13/18at 17:17; Start 09/13/18 at 17:00; Stop 09/13/18 at 17:01; Status DC Furosemide (Lasix) 40 mg 1X ONCE IVP Last administered on 09/13/18at 12:21; Start 09/13/18 at 12:30; Stop 09/13/18 at 12:31; Status DC Hydralazine HCl (Apresoline Inj) 10 mg PRN Q4HRS PRN IVP ELEVATED BP, SEE COMMENTS Last administered on 09/14/18at 23:16; Start 09/13/18 at 12:00 Ceftriaxone Sodium (Rocephin) 1 gm Q24H IVP Last administered on 09/14/18at 14:10; Start 09/13/18 at 15:00 Lactobacillus Rhamnosus (Culturelle) 1 cap BID PO Last administered on 09/14/18at 16:24; Start 09/14/18 at 09:00 Amiodarone HCl (Cordarone) 200 mg DAILY PO Last administered on 09/15/18at 07:23; Start 09/14/18 at 14:00 Losartan Potassium (Cozaar) 50 mg DAILY PO Last administered on 09/15/18at 07:23; Start 09/14/18 at 14:00 Hydralazine HCl (Apresoline Inj) 10 mg PRN Q4HRS PRN IVP ELEVATED BP, SEE COMMENTS; Start 09/14/18 at 13:30 Active Scripts Active Reported Hydrochlorothiazide Tablet (Hydrochlorothiazide) 12.5 Mg Tablet 12.5 Mg PO DAILY Levothyroxine Sodium 50 Mcg Tablet 1 Tab PO DAILY Amiodarone Hcl 200 Mg Tablet 1 Tab PO DAILY [Tylenol Arthritis] PO PRN PRN Calcium + Vitamin D Tablet (Calcium Carbonate/Vitamin D3) 1 Each Tablet 1 Each PO BID Losartan-Hctz 50-12.5 Mg Tab (Losartan/Hydrochlorothiazide) 1 Each Tablet 1 Tab PO QHS Crestor (Rosuvastatin Calcium) 20 Mg Tablet 1 Tab PO 3X/WEEK Aspirin 81 Mg Tab.chew 1 Tab PO QHS Vitals/I & O Vital Sign - Last 24 Hours 09/14/18 09/14/18 09/14/18 09/14/18 09:00 09:45 10:00 11:00 Pulse 60 60 66 Resp 13 18 16 B/P (MAP) 164/65 (98) 170/66 (100) 159/74 (102) Pulse Ox 97 97 98 96 O2 Delivery BiPAP/CPAP BiPAP/CPAP BiPAP/CPAP Nasal Cannula O2 Flow Rate 2.0 09/14/18 09/14/18 09/14/18 09/14/18 12:00 12:00 12:05 13:00 Temp 97.2 97.2 Pulse 66 76 Resp 18 17 B/P (MAP) 177/62 (100) 175/72 (106) Pulse Ox 96 96 O2 Delivery Nasal Cannula Nasal Cannula Nasal Cannula O2 Flow Rate 2.0 2.0 2.0 09/14/18 09/14/18 09/14/18 09/14/18 14:00 14:06 14:08 15:00 Temp 97.6 97.6 Pulse 70 72 71 74 Resp 16 20 B/P (MAP) 156/52 (86) 156/52 156/52 141/56 (84) Pulse Ox 96 97 O2 Delivery Nasal Cannula Nasal Cannula O2 Flow Rate 2.0 2.0 09/14/18 09/14/18 09/14/18 09/14/18 16:53 19:30 20:00 20:29 Temp 98.5 98.8 98.5 98.8 Pulse 72 67 Resp 18 20 B/P (MAP) 178/72 (107) 155/53 (87) Pulse Ox 95 95 95 O2 Delivery Nasal Cannula Nasal Cannula Nasal Cannula Room Air O2 Flow Rate 2.0 2.0 09/14/18 09/14/18 09/14/18 09/15/18 22:53 22:55 23:16 00:00 Temp 98.3 98.3 Pulse 70 69 Resp 20 B/P (MAP) 207/83 (124) 187/80 Pulse Ox 97 96 98 O2 Delivery BiPAP/CPAP BiPAP/CPAP BiPAP/CPAP 09/15/18 09/15/18 09/15/18 09/15/18 01:35 03:05 03:15 07:00 Temp 98.0 98.6 98.0 98.6 Pulse 74 72 Resp 20 18 B/P (MAP) 157/69 (98) 170/70 (103) Pulse Ox 95 95 95 99 O2 Delivery BiPAP/CPAP BiPAP/CPAP BiPAP/CPAP Nasal Cannula O2 Flow Rate 2.0 09/15/18 09/15/18 09/15/18 07:23 07:23 07:37 Pulse 72 70 B/P (MAP) 188/80 188/80 Pulse Ox 100 O2 Delivery Nasal Cannula O2 Flow Rate 3.0 Intake and Output 09/14/18 09/14/18 09/15/18 15:00 23:00 07:00 Intake Total 350 ml 500 ml Output Total 500 ml 850 ml Balance -150 ml -350 ml CALLY GUILLEN MD September 15, 2018 08:02
[2018-09-15] MEDS: LACTOBACILLUS RHAMNOSUS GG 1 CAPSULE. PO SCH ×2 (08:51→20:55)
[2018-09-15] MEDS: methylPREDNISolone SOD SUCC PF 40 MG/ML VIAL. IV SCH (08:51)
--- NOTE | 2018-09-15 10:07 | PDOC ---
PROGRESS NOTES Assessment Problems Medical Problems: (1) Acute kidney injury Status: Acute (2) CVA (cerebral vascular accident) Status: Acute (3) Elevated troponin Status: Acute (4) Hypoxia Status: Acute Stroke symptoms, no abnormal findings on MRI Metabolic encephalopathy, much better today of course off sedation Plan Treat medical diseases Transfer to correction Will follow Subjective No complaints Objective Vital Signs Date Time Temp Pulse Resp B/P (MAP) Pulse Ox O2 Delivery O2 Flow Rate FiO2 09/15/18 08:00 Nasal Cannula 2.0 09/15/18 07:37 100 09/15/18 07:23 70 188/80 09/15/18 07:00 98.6 18 98.6 Intake and Output 09/15/18 06:59 Intake Total 850 ml Output Total 1480 ml Balance -630 ml Intake Oral 850 ml Output Urine Total 1480 ml # Bowel Movements 3 PHYSICAL EXAM Alert, follows a few commands, does not know date or location PERRL. EOMI. CN: no focal findings. Muscle tone: normal. Muscle strength: 4/5 DTR: 2+ Plantar reflex: flexor Gait: not examined in bed. Sensory exam: no abnormal findings. No cerebellar signs elicited. Review of Relevant I have reviewed the following items jonathon (where applicable) has been applied. Labs Laboratory Tests Test 09/13/18 21:19 09/14/18 04:30 09/14/18 08:15 Urine Random Creatinine 27.5 mg/dL (Not Establ.) Urine Random Total Protein 12.7 mg/dL (Not Establ.) Urine Protein/Creatinine Ratio 462 mg/g (0-200) Sodium Level 144 mmol/L (136-145) Potassium Level 4.0 mmol/L (3.5-5.1) Chloride Level 104 mmol/L (98-107) Carbon Dioxide Level 38 mmol/L (21-32) Anion Gap 2 (6-14) Blood Urea Nitrogen 29 mg/dL (8-26) Creatinine 1.1 mg/dL (0.7-1.3) Estimated GFR (Cockcroft-Gault) 63.0 Glucose Level 107 mg/dL (70-99) Calcium Level 8.3 mg/dL (8.5-10.1) Phosphorus Level 3.6 mg/dL (2.6-4.7) Magnesium Level 2.0 mg/dL (1.8-2.4) Albumin 2.2 g/dL (3.4-5.0) O2 Saturation 95 % (92-99) Arterial Blood pH 7.44 (7.35-7.45) Arterial Blood pCO2 at Patient Temp 60 mmHg (35-46) Arterial Blood pO2 at Patient Temp 77 mmHg (65-108) Arterial Blood HCO3 40 mmol/L (21-28) Arterial Blood Base Excess 14 mmol/L (-3-3) FiO2 30 Microbiology 09/09/18 Blood Culture - Final, Complete NO GROWTH AFTER 5 DAYS Medications Current Medications Albuterol/ Ipratropium (Duoneb) 3 ml STK-MED ONCE .ROUTE ; Start 09/09/18 at 18:09; Stop 09/09/18 at 18:10; Status DC Ondansetron HCl (Zofran) 4 mg PRN Q8HRS PRN IV NAUSEA/VOMITING 1ST CHOICE; Start 09/09/18 at 21:00; Stop 09/10/18 at 20:59; Status DC Morphine Sulfate (Morphine Sulfate) 2 mg PRN Q2HR PRN IV SEVERE PAIN; Start 09/09/18 at 21:00; Stop 09/10/18 at 20:59; Status DC Acetaminophen (Tylenol) 650 mg PRN Q4HRS PRN PO FEVER; Start 09/09/18 at 21:00; Stop 09/10/18 at 20:59; Status DC Hydrochlorothiazide (Microzide) 12.5 mg DAILY PO Last administered on 09/15/18at 07:23; Start 09/10/18 at 11:00 Aspirin (Children'S Aspirin) 81 mg QHS PO Last administered on 09/14/18at 21:47; Start 09/10/18 at 21:00 Levothyroxine Sodium (Synthroid) 50 mcg DAILY06 PO Last administered on 09/15/18at 06:36; Start 09/11/18 at 06:00 Methylprednisolone Sodium Succinate (SOLU-Medrol 125MG VIAL) 60 mg BID IV Last administered on 09/11/18at 20:32; Start 09/10/18 at 14:00; Stop 09/12/18 at 10:02; Status DC Albuterol Sulfate (Ventolin Neb Soln) 2.5 mg TID NEB Last administered on 09/15/18at 07:36; Start 09/10/18 at 14:00 Albuterol Sulfate (Ventolin Neb Soln) 2.5 mg PRN Q2HR PRN NEB DYSPNEA; Start 09/10/18 at 13:45 Magnesium Sulfate 50 ml @ 25 mls/hr PRN DAILY PRN IV for Mag < 1.7 on am labs; Start 09/11/18 at 11:30 Lorazepam (Ativan Inj) 1 mg PRN Q2HR PRN IV ANXIETY / AGITATION Last administered on 09/13/18at 08:33; Start 09/11/18 at 17:45; Stop 09/13/18 at 14:19; Status DC Lorazepam (Ativan Inj) 2 mg PRN Q2HR PRN IV ANXIETY / AGITATION Last administered on 09/12/18at 23:29; Start 09/11/18 at 17:45; Stop 09/13/18 at 14:19; Status DC Enoxaparin Sodium (Lovenox 40mg Syringe) 40 mg Q24H SQ Last administered on 09/14/18at 09:53; Start 09/12/18 at 09:00; Stop 09/14/18 at 12:12; Status DC Methylprednisolone Sodium Succinate (SOLU-Medrol 40MG VIAL) 40 mg DAILY IV Last administered on 09/15/18at 08:51; Start 09/13/18 at 09:00 Dextrose 1,000 ml @ 100 mls/hr Q10H IV Last administered on 09/13/18at 00:17; Start 09/12/18 at 12:00; Stop 09/13/18 at 07:59; Status DC Haloperidol Lactate (Haldol Inj) 5 mg PRN Q6HRS PRN IVP AGITATION Last adminis tered on 09/13/18at 14:45; Start 09/13/18 at 02:45 Potassium Phosphate 15 mmol/ Sodium Chloride 255 ml @ 127.5 mls/ hr 1X ONCE IV Last administered on 09/13/18at 08:33; Start 09/13/18 at 08:30; Stop 09/13/18 at 10:29; Status DC Potassium Chloride/Water 100 ml @ 100 mls/hr Q1H IV Last administered on 09/13/18at 14:09; Start 09/13/18 at 08:30; Stop 09/13/18 at 10:29; Status DC Lidocaine/ Epinephrine (LIDOCAINE 2%-EPI 1:100,000 multi-dose) 20 ml 1X ONCE IJ Last administered on 09/13/18at 11:12; Start 09/13/18 at 09:15; Stop 09/13/18 at 09:16; Status DC Bacitracin 58296 unit/Sodium Chloride 250 ml @ 0 mls/hr 1X ONCE IRR Last adm inistered on 09/13/18at 11:12; Start 09/13/18 at 09:15; Stop 09/13/18 at 09:16; Status DC Cefazolin Sodium 50 ml @ 100 mls/hr 1X ONCE IV Last administered on 09/13/18at 11:11; Start 09/13/18 at 09:15; Stop 09/13/18 at 09:44; Status DC Lidocaine/ Epinephrine (LIDOCAINE 2%-EPI 1:100,000 multi-dose) 20 ml STK-MED ONCE .ROUTE ; Start 09/13/18 at 09:10; Stop 09/13/18 at 09:11; Status DC Cefazolin Sodium 50 ml @ As Directed STK-MED ONCE IV ; Start 09/13/18 at 09:10; Stop 09/13/18 at 09:11; Status DC Midazolam HCl (Versed) 2 mg STK-MED ONCE .ROUTE ; Start 09/13/18 at 09:35; Stop 09/13/18 at 09:36; Status DC Propofol 20 ml @ As Directed STK-MED ONCE IV ; Start 09/13/18 at 09:35; Stop 09/13/18 at 09:36; Status DC Propofol 50 ml @ As Directed STK-MED ONCE IV ; Start 09/13/18 at 09:35; Stop 09/13/18 at 09:36; Status DC Ketamine HCl (Ketamine) 50 mg STK-MED ONCE .ROUTE ; Start 09/13/18 at 09:35; Stop 09/13/18 at 09:36; Status DC Lidocaine HCl (Lidocaine Pf 2% Vial) 5 ml STK-MED ONCE .ROUTE ; Start 09/13/18 at 09:38; Stop 09/13/18 at 09:39; Status DC Dexmedetomidine HCl 200 mcg/ Sodium Chloride 50 ml @ 0 mls/hr CONT PRN IV PER PROTOCOL Last administered on 09/13/18at 22:18; Start 09/13/18 at 10:30 Sodium Chloride 500 ml @ 500 mls/hr 1X PRN PRN IV SEE COMMENTS; Start 09/13/18 at 10:30 Info (No Anticoagulant Therapy) 1 ea CONT PRN PRN MC PER PROTOCOL; Start 09/13/18 at 11:45 Cefazolin Sodium 1 gm/Dextrose 50 ml @ 100 mls/hr 1X ONCE IV ; Start 09/13/18 at 12:00; Stop 09/13/18 at 12:29; Status UNV Oxycodone/ Acetaminophen (Percocet 5/325) 1 tab PRN Q4HRS PRN PO MILD PAIN 1-3; Start 09/13/18 at 11:45 Cefazolin Sodium (Ancef) 1 gm 1X ONCE IVP Last administered on 09/13/18at 17:17; Start 09/13/18 at 17:00; Stop 09/13/18 at 17:01; Status DC Furosemide (Lasix) 40 mg 1X ONCE IVP Last administered on 09/13/18at 12:21; Start 09/13/18 at 12:30; Stop 09/13/18 at 12:31; Status DC Hydralazine HCl (Apresoline Inj) 10 mg PRN Q4HRS PRN IVP ELEVATED BP, SEE COMMENTS Last administered on 09/14/18at 23:16; Start 09/13/18 at 12:00 Ceftriaxone Sodium (Rocephin) 1 gm Q24H IVP Last administered on 09/14/18at 14:10; Start 09/13/18 at 15:00 Lactobacillus Rhamnosus (Culturelle) 1 cap BID PO Last administered on 09/15/18at 08:51; Start 09/14/18 at 09:00 Amiodarone HCl (Cordarone) 200 mg DAILY PO Last administered on 09/15/18at 07:23; Start 09/14/18 at 14:00 Losartan Potassium (Cozaar) 50 mg DAILY PO Last administered on 09/15/18at 07:23; Start 09/14/18 at 14:00 Hydralazine HCl (Apresoline Inj) 10 mg PRN Q4HRS PRN IVP ELEVATED BP, SEE C OMMENTS; Start 09/14/18 at 13:30 Active Scripts Active Reported Hydrochlorothiazide Tablet (Hydrochlorothiazide) 12.5 Mg Tablet 12.5 Mg PO DAILY Levothyroxine Sodium 50 Mcg Tablet 1 Tab PO DAILY Amiodarone Hcl 200 Mg Tablet 1 Tab PO DAILY [Tylenol Arthritis] PO PRN PRN Calcium + Vitamin D Tablet (Calcium Carbonate/Vitamin D3) 1 Each Tablet 1 Each PO BID Losartan-Hctz 50-12.5 Mg Tab (Losartan/Hydrochlorothiazide) 1 Each Tablet 1 Tab PO QHS Crestor (Rosuvastatin Calcium) 20 Mg Tablet 1 Tab PO 3X/WEEK Aspirin 81 Mg Tab.chew 1 Tab PO QHS Vitals/I & O Vital Sign - Last 24 Hours 09/14/18 09/14/18 09/14/18 09/14/18 11:00 12:00 12:00 12:05 Temp 97.2 97.2 Pulse 66 66 Resp 16 18 B/P (MAP) 159/74 (102) 177/62 (100) Pulse Ox 96 96 O2 Delivery Nasal Cannula Nasal Cannula Nasal Cannula O2 Flow Rate 2.0 2.0 2.0 09/14/18 09/14/18 09/14/18 09/14/18 13:00 14:00 14:06 14:08 Pulse 76 70 72 71 Resp 17 16 B/P (MAP) 175/72 (106) 156/52 (86) 156/52 156/52 Pulse Ox 96 96 O2 Delivery Nasal Cannula Nasal Cannula O2 Flow Rate 2.0 2.0 09/14/18 09/14/18 09/14/18 09/14/18 15:00 16:53 19:30 20:00 Temp 97.6 98.5 98.8 97.6 98.5 98.8 Pulse 74 72 67 Resp 20 18 20 B/P (MAP) 141/56 (84) 178/72 (107) 155/53 (87) Pulse Ox 97 95 95 O2 Delivery Nasal Cannula Nasal Cannula Nasal Cannula Nasal Cannula O2 Flow Rate 2.0 2.0 2.0 09/14/18 09/14/18 09/14/18 09/14/18 20:29 22:53 22:55 23:16 Temp 98.3 98.3 Pulse 70 69 Resp 20 B/P (MAP) 207/83 (124) 187/80 Pulse Ox 95 97 96 O2 Delivery Room Air BiPAP/CPAP BiPAP/CPAP 09/15/18 09/15/18 09/15/18 09/15/18 00:00 01:35 03:05 03:15 Temp 98.0 98.0 Pulse 74 Resp 20 B/P (MAP) 157/69 (98) Pulse Ox 98 95 95 95 O2 Delivery BiPAP/CPAP BiPAP/CPAP BiPAP/CPAP BiPAP/CPAP 09/15/18 09/15/18 09/15/18 09/15/18 07:00 07:23 07:23 07:37 Temp 98.6 98.6 Pulse 72 72 70 Resp 18 B/P (MAP) 170/70 (103) 188/80 188/80 Pulse Ox 99 100 O2 Delivery Nasal Cannula Nasal Cannula O2 Flow Rate 2.0 3.0 09/15/18 08:00 O2 Delivery Nasal Cannula O2 Flow Rate 2.0 Intake and Output 09/14/18 09/14/18 09/15/18 14:59 22:59 06:59 Intake Total 350 ml 500 ml Output Total 630 ml 850 ml Balance -280 ml -350 ml ELIZABETH GARCÍA MD September 15, 2018 10:07
[2018-09-15 10:47] LABS: BASO % 0 % (0-3); EOS % 0 % (0-3); HEMATOCRIT 32.9 % (39.0-53.0); HEMOGLOBIN 9.9 g/dL (13.0-17.5); LYMPH # 0.4 x10^3/uL (1.0-4.8); LYMPH % 5 % (24-48); MEAN CORPUSCULAR HEMOGLOBIN 24 pg (25-35); MEAN CORPUSCULAR HGB CONC 30 g/dL (31-37); MEAN CORPUSCULAR VOLUME 80 fL (79-100); MONO # 0.7 x10^3/uL (0.0-1.1); MONO % 8 % (0-9); NEUT # 8.1 x10^3uL (1.8-7.7); NEUT % 87 % (31-73); PLATELET COUNT 218 x10^3/uL (140-400); RED BLOOD COUNT 4.13 x10^6/uL (4.30-5.70); RED CELL DISTRIBUTION WIDTH 17.6 % (11.5-14.5); WHITE BLOOD COUNT 9.2 x10^3/uL (4.0-11.0)
[2018-09-15 10:54] VITALS: BP 152/61
[2018-09-15 10:56] LABS: ALBUMIN 2.4 g/dL (3.4-5.0); CALCIUM 8.4 mg/dL (8.5-10.1); CREATININE 1.3 mg/dL (0.7-1.3); MAGNESIUM 2.1 mg/dL (1.8-2.4); PHOSPHORUS 2.3 mg/dL (2.6-4.7); POTASSIUM 3.5 mmol/L (3.5-5.1)
--- NOTE | 2018-09-15 11:49 | PDOC ---
PULMONARY PROGRESS NOTES Subjective no soa follows commands off BIPAP Vitals Vital Signs Date Time Temp Pulse Resp B/P (MAP) Pulse Ox O2 Delivery O2 Flow Rate FiO2 09/15/18 10:54 98.2 67 18 152/61 (91) 97 Nasal Cannula 2.0 98.2 General: Alert, No acute distress Lungs: Clear Cardiovascular: S1, S2 Abdomen: Soft, Non-tender, Other (no mass) Extremities: Other (1+edema) Skin: Warm Labs Laboratory Tests Test 09/13/18 21:19 09/14/18 04:30 09/14/18 08:15 09/15/18 10:30 Urine Random Creatinine 27.5 mg/dL (Not Establ.) Urine Random Total Protein 12.7 mg/dL (Not Establ.) Urine Protein/Creatinine Ratio 462 mg/g (0-200) Sodium Level 144 mmol/L (136-145) 145 mmol/L (136-145) Potassium Level 4.0 mmol/L (3.5-5.1) 3.5 mmol/L (3.5-5.1) Chloride Level 104 mmol/L (98-107) 102 mmol/L (98-107) Carbon Dioxide Level 38 mmol/L (21-32) 41 mmol/L (21-32) Anion Gap 2 (6-14) 2 (6-14) Blood Urea Nitrogen 29 mg/dL (8-26) 26 mg/dL (8-26) Creatinine 1.1 mg/dL (0.7-1.3) 1.3 mg/dL (0.7-1.3) Estimated GFR (Cockcroft-Gault) 63.0 52.0 Glucose Level 107 mg/dL (70-99) 115 mg/dL (70-99) Calcium Level 8.3 mg/dL (8.5-10.1) 8.4 mg/dL (8.5-10.1) Phosphorus Level 3.6 mg/dL (2.6-4.7) 2.3 mg/dL (2.6-4.7) Magnesium Level 2.0 mg/dL (1.8-2.4) 2.1 mg/dL (1.8-2.4) Albumin 2.2 g/dL (3.4-5.0) 2.4 g/dL (3.4-5.0) O2 Saturation 95 % (92-99) Arterial Blood pH 7.44 (7.35-7.45) Arterial Blood pCO2 at Patient Temp 60 mmHg (35-46) Arterial Blood pO2 at Patient Temp 77 mmHg (65-108) Arterial Blood HCO3 40 mmol/L (21-28) Arterial Blood Base Excess 14 mmol/L (-3-3) FiO2 30 White Blood Count 9.2 x10^3/uL (4.0-11.0) Red Blood Count 4.13 x10^6/uL (4.30-5.70) Hemoglobin 9.9 g/dL (13.0-17.5) Hematocrit 32.9 % (39.0-53.0) Mean Corpuscular Volume 80 fL (79-100) Mean Corpuscular Hemoglobin 24 pg (25-35) Mean Corpuscular Hemoglobin Concent 30 g/dL (31-37) Red Cell Distribution Width 17.6 % (11.5-14.5) Platelet Count 218 x10^3/uL (140-400) Neutrophils (%) (Auto) 87 % (31-73) Lymphocytes (%) (Auto) 5 % (24-48) Monocytes (%) (Auto) 8 % (0-9) Eosinophils (%) (Auto) 0 % (0-3) Basophils (%) (Auto) 0 % (0-3) Neutrophils # (Auto) 8.1 x10^3uL (1.8-7.7) Lymphocytes # (Auto) 0.4 x10^3/uL (1.0-4.8) Monocytes # (Auto) 0.7 x10^3/uL (0.0-1.1) Eosinophils # (Auto) 0.0 x10^3/uL (0.0-0.7) Basophils # (Auto) 0.0 x10^3/uL (0.0-0.2) Laboratory Tests Test 09/15/18 10:30 White Blood Count 9.2 x10^3/uL (4.0-11.0) Red Blood Count 4.13 x10^6/uL (4.30-5.70) Hemoglobin 9.9 g/dL (13.0-17.5) Hematocrit 32.9 % (39.0-53.0) Mean Corpuscular Volume 80 fL (79-100) Mean Corpuscular Hemoglobin 24 pg (25-35) Mean Corpuscular Hemoglobin Concent 30 g/dL (31-37) Red Cell Distribution Width 17.6 % (11.5-14.5) Platelet Count 218 x10^3/uL (140-400) Neutrophils (%) (Auto) 87 % (31-73) Lymphocytes (%) (Auto) 5 % (24-48) Monocytes (%) (Auto) 8 % (0-9) Eosinophils (%) (Auto) 0 % (0-3) Basophils (%) (Auto) 0 % (0-3) Neutrophils # (Auto) 8.1 x10^3uL (1.8-7.7) Lymphocytes # (Auto) 0.4 x10^3/uL (1.0-4.8) Monocytes # (Auto) 0.7 x10^3/uL (0.0-1.1) Eosinophils # (Auto) 0.0 x10^3/uL (0.0-0.7) Basophils # (Auto) 0.0 x10^3/uL (0.0-0.2) Sodium Level 145 mmol/L (136-145) Potassium Level 3.5 mmol/L (3.5-5.1) Chloride Level 102 mmol/L (98-107) Carbon Dioxide Level 41 mmol/L (21-32) Anion Gap 2 (6-14) Blood Urea Nitrogen 26 mg/dL (8-26) Creatinine 1.3 mg/dL (0.7-1.3) Estimated GFR (Cockcroft-Gault) 52.0 Glucose Level 115 mg/dL (70-99) Calcium Level 8.4 mg/dL (8.5-10.1) Phosphorus Level 2.3 mg/dL (2.6-4.7) Magnesium Level 2.1 mg/dL (1.8-2.4) Albumin 2.4 g/dL (3.4-5.0) Medications Active Scripts Medications Dose Route/Sig Max Daily Dose Days Date Category Hydrochlorothiazide Tablet (Hydrochlorothiazide) 12.5 Mg Tablet 12.5 Mg PO DAILY 09/09/18 Reported Levothyroxine Sodium 50 Mcg Tablet 1 Tab PO DAILY 09/09/18 Reported Amiodarone Hcl 200 Mg Tablet 1 Tab PO DAILY 10/16/17 Reported [Tylenol Arthritis] PO PRN PRN 08/28/17 Reported Calcium + Vitamin D Tablet (Calcium Carbonate/Vitamin D3) 1 Each Tablet 1 Each PO BID 08/28/17 Reported Losartan-Hctz 50-12.5 Mg Tab (Losartan/Hydrochlorothiazide) 1 Each Tablet 1 Tab PO QHS 08/28/17 Reported Crestor (Rosuvastatin Calcium) 20 Mg Tablet 1 Tab PO 3X/WEEK 08/28/17 Reported Aspirin 81 Mg Tab.chew 1 Tab PO QHS 08/28/17 Reported Comments CXR 09/14 BILATERAL INFILTRATES. R> LEFT Impression . MPRESSION: 1. Acute hypoxemic respiratory failure. MULTIFATORIAL 2. Chronic obstructive pulmonary disease AECOPD? 3. Sjlvd-ys-byqjmrn renal insufficiency. 4. Rgqun-lb-lbclgng encephalopathy, suspect multifactorial 5. Paroxysmal atrial fibrillation status post cardioversion in the past. CHB 6. Hypothyroidism. 7. S/P PACER 8. ABNORMAL CXR suspect CHF/ Pneumonia 9. 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 BIPAP prn CLINICALLY BETTER EMPIRIC ANTIBX LASIX PER CARD PRN BLANCA D/W RN DC TO [facility] MD September 15, 2018 11:49
--- NOTE | 2018-09-15 12:31 | NUR ---
SS following up with discharge planning. SS spoke with pt's daughter, Keya, via phone. Pt's daughter reported that family would like referral for halfway unit sent to [facility] in [place], ; fax [phone]. SS phoned and faxed referral to [facility]. SS will await acceptance decision and will proceed accordingly.
--- NOTE | 2018-09-15 13:51 | PDOC ---
CARDIO Progress Notes Date and Time Date of Service 09/15/18 Time of Evaluation 1305 Subjective Subjective: No Chest Pain, No shortness of breath Vitals Vitals Vital Signs Date Time Temp Pulse Resp B/P (MAP) Pulse Ox O2 Delivery O2 Flow Rate FiO2 09/15/18 12:14 Nasal Cannula 2.0 09/15/18 10:54 98.2 67 18 152/61 (91) 97 98.2 Weight Weight [ ] Input and Output Intake and Output Intake and Output 09/15/18 06:59 Intake Total 850 ml Output Total 1480 ml Balance -630 ml Intake Oral 850 ml Output Urine Total 1480 ml # Bowel Movements 3 Laboratory Labs Laboratory Tests Test 09/15/18 10:30 White Blood Count 9.2 x10^3/uL (4.0-11.0) Red Blood Count 4.13 x10^6/uL (4.30-5.70) Hemoglobin 9.9 g/dL (13.0-17.5) Hematocrit 32.9 % (39.0-53.0) Mean Corpuscular Volume 80 fL (79-100) Mean Corpuscular Hemoglobin 24 pg (25-35) Mean Corpuscular Hemoglobin Concent 30 g/dL (31-37) Red Cell Distribution Width 17.6 % (11.5-14.5) Platelet Count 218 x10^3/uL (140-400) Neutrophils (%) (Auto) 87 % (31-73) Lymphocytes (%) (Auto) 5 % (24-48) Monocytes (%) (Auto) 8 % (0-9) Eosinophils (%) (Auto) 0 % (0-3) Basophils (%) (Auto) 0 % (0-3) Neutrophils # (Auto) 8.1 x10^3uL (1.8-7.7) Lymphocytes # (Auto) 0.4 x10^3/uL (1.0-4.8) Monocytes # (Auto) 0.7 x10^3/uL (0.0-1.1) Eosinophils # (Auto) 0.0 x10^3/uL (0.0-0.7) Basophils # (Auto) 0.0 x10^3/uL (0.0-0.2) Sodium Level 145 mmol/L (136-145) Potassium Level 3.5 mmol/L (3.5-5.1) Chloride Level 102 mmol/L (98-107) Carbon Dioxide Level 41 mmol/L (21-32) Anion Gap 2 (6-14) Blood Urea Nitrogen 26 mg/dL (8-26) Creatinine 1.3 mg/dL (0.7-1.3) Estimated GFR (Cockcroft-Gault) 52.0 Glucose Level 115 mg/dL (70-99) Calcium Level 8.4 mg/dL (8.5-10.1) Phosphorus Level 2.3 mg/dL (2.6-4.7) Magnesium Level 2.1 mg/dL (1.8-2.4) Albumin 2.4 g/dL (3.4-5.0) Microbiology Micro Microbiology 09/09/18 Blood Culture - Final, Complete NO GROWTH AFTER 5 DAYS Physical Exam HEENT: Neck Supple W Full Motion Chest: Symmetric LUNGS: Other (left chest pectoral PPM insertion site clean and dry. No hematoma present. Fine expiratory wheezes) Heart: other (v-paced) Abdomen: Soft N/T Extremities: No Edema Neurology: alert, follow commands Assessment Assessment 1. High grade AVB; s/p PPM. 2. HTN; labile 3. JAY JAY on CKD; better 4. PAFIB s/p previous CV 5. Acute on chronic respiratory failure -improved 6. Metabolic encephalopathy; improved 7. Hypothyroidism; On levothyroxine Recommendations ASA for stroke prevention given increased risk for falls Continue Amiodarone for rhythm maintenance Increase losartan for better BP control Add Norvasc if remains elevated Lasix as warranted Agree with rehab upon discharge TRUE ALEXANDER APRN September 15, 2018 13:51
[2018-09-15] MEDS ORDERED: LOSARTAN POTASSIUM 50 MG TABLET. PO ONE (14:15)
[2018-09-15] MEDS ORDERED: POTASSIUM CHLORIDE 20 MEQ TABLET.ER. PO ONE (14:30)
[2018-09-15] MEDS: cefTRIAXone IV Push 1 GM VIAL. IVP SCH (14:42)
[2018-09-15 15:00] VITALS: BP 129/47
--- NOTE | 2018-09-15 18:35 | NUR ---
1830 Patient got up to bedside commode, had a loose brown bowel movement along with 100cc's of urine. Bladder scanner showed 0 PVR. Fluids encouraged.
[2018-09-15 19:15] VITALS: BP 148/64
[2018-09-15] MEDS: ASPIRIN CHEWABLE 81 MG TABLET. PO SCH (20:55)
[2018-09-15 23:35] VITALS: BP 181/75
[2018-09-16 00:10] VITALS: BP 151/88
[2018-09-16 02:39] VITALS: BP 165/111
[2018-09-16 04:07] LABS: BASO % 0 % (0-3); EOS % 0 % (0-3); HEMATOCRIT 31.7 % (39.0-53.0); HEMOGLOBIN 9.6 g/dL (13.0-17.5); LYMPH # 0.7 x10^3/uL (1.0-4.8); LYMPH % 7 % (24-48); MEAN CORPUSCULAR HEMOGLOBIN 24 pg (25-35); MEAN CORPUSCULAR HGB CONC 30 g/dL (31-37); MEAN CORPUSCULAR VOLUME 79 fL (79-100); MONO # 1.1 x10^3/uL (0.0-1.1); MONO % 11 % (0-9); NEUT # 8.4 x10^3uL (1.8-7.7); NEUT % 83 % (31-73); PLATELET COUNT 197 x10^3/uL (140-400); RED BLOOD COUNT 3.99 x10^6/uL (4.30-5.70); RED CELL DISTRIBUTION WIDTH 17.1 % (11.5-14.5); WHITE BLOOD COUNT 10.2 x10^3/uL (4.0-11.0)
[2018-09-16 04:19] LABS: ALBUMIN 2.2 g/dL (3.4-5.0); CALCIUM 8.2 mg/dL (8.5-10.1); CREATININE 1.1 mg/dL (0.7-1.3); MAGNESIUM 2.1 mg/dL (1.8-2.4); PHOSPHORUS 1.9 mg/dL (2.6-4.7)
--- NOTE | 2018-09-16 06:30 | NUR ---
Kevin has needed reinforcement as to the function of and need for his arm immobilizer this morning.
[2018-09-16] MEDS: LEVOTHYROXINE 50 MCG TABLET PO SCH (06:35)
[2018-09-16 07:20] VITALS: BP 166/71
[2018-09-16] MEDS: ALBUTEROL SULFATE 2.5 MG/3 ML NEBU. NEB SCH ×2 (07:33→12:03)
--- NOTE | 2018-09-16 07:44 | PDOC ---
PROGRESS NOTES Chief Complaint Chief Complaint Stroke symptoms shortness of breath Acute hypoxemic respiratory failure. Chronic obstructive pulmonary disease Nhrkx-hp-lakboit renal insufficiency. Eqyfx-gh-nvywdqm encephalopathy, suspect multifactorial, resolved. Paroxysmal atrial fibrillation status post cardioversion in the past. CHB s/p pacemaker insertion Hypothyroidism. History of Present Illness History of Present Illness Patient seen and examined in the cardiac unit Discussed with RN He was on BIPAP overnight, sitting in chair now, has not needed haldol or precedex for 24 hours, has been less agitated since then. No bradycardia. BP was up yesterday, increased his losartan with good effect Reviewed subspecialist notes, will look into rehabilitation, d/w SW can go today 36 minutes spent on patient care Vitals Vitals Vital Signs Date Time Temp Pulse Resp B/P (MAP) Pulse Ox O2 Delivery O2 Flow Rate FiO2 09/16/18 07:35 Nasal Cannula 2.0 09/16/18 02:39 98.6 78 18 165/111 (129) 96 98.6 Physical Exam General: Alert, mild distress Heart: Regular rate, Normal S1, Normal S2, Other (heart rate slightly irregular) Lungs: Clear Abdomen: Soft Extremities: No clubbing, No cyanosis, Other (1+ pitting pedal edema) Skin: No rashes, No breakdown Labs LABS Laboratory Tests Test 09/15/18 10:30 09/16/18 03:30 White Blood Count 9.2 x10^3/uL (4.0-11.0) 10.2 x10^3/uL (4.0-11.0) Red Blood Count 4.13 x10^6/uL (4.30-5.70) 3.99 x10^6/uL (4.30-5.70) Hemoglobin 9.9 g/dL (13.0-17.5) 9.6 g/dL (13.0-17.5) Hematocrit 32.9 % (39.0-53.0) 31.7 % (39.0-53.0) Mean Corpuscular Volume 80 fL (79-100) 79 fL (79-100) Mean Corpuscular Hemoglobin 24 pg (25-35) 24 pg (25-35) Mean Corpuscular Hemoglobin Concent 30 g/dL (31-37) 30 g/dL (31-37) Red Cell Distribution Width 17.6 % (11.5-14.5) 17.1 % (11.5-14.5) Platelet Count 218 x10^3/uL (140-400) 197 x10^3/uL (140-400) Neutrophils (%) (Auto) 87 % (31-73) 83 % (31-73) Lymphocytes (%) (Auto) 5 % (24-48) 7 % (24-48) Monocytes (%) (Auto) 8 % (0-9) 11 % (0-9) Eosinophils (%) (Auto) 0 % (0-3) 0 % (0-3) Basophils (%) (Auto) 0 % (0-3) 0 % (0-3) Neutrophils # (Auto) 8.1 x10^3uL (1.8-7.7) 8.4 x10^3uL (1.8-7.7) Lymphocytes # (Auto) 0.4 x10^3/uL (1.0-4.8) 0.7 x10^3/uL (1.0-4.8) Monocytes # (Auto) 0.7 x10^3/uL (0.0-1.1) 1.1 x10^3/uL (0.0-1.1) Eosinophils # (Auto) 0.0 x10^3/uL (0.0-0.7) 0.0 x10^3/uL (0.0-0.7) Basophils # (Auto) 0.0 x10^3/uL (0.0-0.2) 0.0 x10^3/uL (0.0-0.2) Sodium Level 145 mmol/L (136-145) 146 mmol/L (136-145) Potassium Level 3.5 mmol/L (3.5-5.1) 4.0 mmol/L (3.5-5.1) Chloride Level 102 mmol/L (98-107) 104 mmol/L (98-107) Carbon Dioxide Level 41 mmol/L (21-32) 39 mmol/L (21-32) Anion Gap 2 (6-14) 3 (6-14) Blood Urea Nitrogen 26 mg/dL (8-26) 32 mg/dL (8-26) Creatinine 1.3 mg/dL (0.7-1.3) 1.1 mg/dL (0.7-1.3) Estimated GFR (Cockcroft-Gault) 52.0 63.0 Glucose Level 115 mg/dL (70-99) 108 mg/dL (70-99) Calcium Level 8.4 mg/dL (8.5-10.1) 8.2 mg/dL (8.5-10.1) Phosphorus Level 2.3 mg/dL (2.6-4.7) 1.9 mg/dL (2.6-4.7) Magnesium Level 2.1 mg/dL (1.8-2.4) 2.1 mg/dL (1.8-2.4) Albumin 2.4 g/dL (3.4-5.0) 2.2 g/dL (3.4-5.0) Assessment and Plan Assessmemt and Plan Problems Medical Problems: (1) Acute kidney injury Status: Acute (2) CVA (cerebral vascular accident) Status: Acute (3) Elevated troponin Status: Acute (4) Hypoxia Status: Acute Comment Review of Relevant I have reviewed the following items jonathon (where applicable) has been applied. Labs Laboratory Tests Test 09/14/18 08:15 09/15/18 10:30 09/16/18 03:30 O2 Saturation 95 % (92-99) Arterial Blood pH 7.44 (7.35-7.45) Arterial Blood pCO2 at Patient Temp 60 mmHg (35-46) Arterial Blood pO2 at Patient Temp 77 mmHg (65-108) Arterial Blood HCO3 40 mmol/L (21-28) Arterial Blood Base Excess 14 mmol/L (-3-3) FiO2 30 White Blood Count 9.2 x10^3/uL (4.0-11.0) 10.2 x10^3/uL (4.0-11.0) Red Blood Count 4.13 x10^6/uL (4.30-5.70) 3.99 x10^6/uL (4.30-5.70) Hemoglobin 9.9 g/dL (13.0-17.5) 9.6 g/dL (13.0-17.5) Hematocrit 32.9 % (39.0-53.0) 31.7 % (39.0-53.0) Mean Corpuscular Volume 80 fL (79-100) 79 fL (79-100) Mean Corpuscular Hemoglobin 24 pg (25-35) 24 pg (25-35) Mean Corpuscular Hemoglobin Concent 30 g/dL (31-37) 30 g/dL (31-37) Red Cell Distribution Width 17.6 % (11.5-14.5) 17.1 % (11.5-14.5) Platelet Count 218 x10^3/uL (140-400) 197 x10^3/uL (140-400) Neutrophils (%) (Auto) 87 % (31-73) 83 % (31-73) Lymphocytes (%) (Auto) 5 % (24-48) 7 % (24-48) Monocytes (%) (Auto) 8 % (0-9) 11 % (0-9) Eosinophils (%) (Auto) 0 % (0-3) 0 % (0-3) Basophils (%) (Auto) 0 % (0-3) 0 % (0-3) Neutrophils # (Auto) 8.1 x10^3uL (1.8-7.7) 8.4 x10^3uL (1.8-7.7) Lymphocytes # (Auto) 0.4 x10^3/uL (1.0-4.8) 0.7 x10^3/uL (1.0-4.8) Monocytes # (Auto) 0.7 x10^3/uL (0.0-1.1) 1.1 x10^3/uL (0.0-1.1) Eosinophils # (Auto) 0.0 x10^3/uL (0.0-0.7) 0.0 x10^3/uL (0.0-0.7) Basophils # (Auto) 0.0 x10^3/uL (0.0-0.2) 0.0 x10^3/uL (0.0-0.2) Sodium Level 145 mmol/L (136-145) 146 mmol/L (136-145) Potassium Level 3.5 mmol/L (3.5-5.1) 4.0 mmol/L (3.5-5.1) Chloride Level 102 mmol/L (98-107) 104 mmol/L (98-107) Carbon Dioxide Level 41 mmol/L (21-32) 39 mmol/L (21-32) Anion Gap 2 (6-14) 3 (6-14) Blood Urea Nitrogen 26 mg/dL (8-26) 32 mg/dL (8-26) Creatinine 1.3 mg/dL (0.7-1.3) 1.1 mg/dL (0.7-1.3) Estimated GFR (Cockcroft-Gault) 52.0 63.0 Glucose Level 115 mg/dL (70-99) 108 mg/dL (70-99) Calcium Level 8.4 mg/dL (8.5-10.1) 8.2 mg/dL (8.5-10.1) Phosphorus Level 2.3 mg/dL (2.6-4.7) 1.9 mg/dL (2.6-4.7) Magnesium Level 2.1 mg/dL (1.8-2.4) 2.1 mg/dL (1.8-2.4) Albumin 2.4 g/dL (3.4-5.0) 2.2 g/dL (3.4-5.0) Laboratory Tests Test 09/15/18 10:30 09/16/18 03:30 White Blood Count 9.2 x10^3/uL (4.0-11.0) 10.2 x10^3/uL (4.0-11.0) Red Blood Count 4.13 x10^6/uL (4.30-5.70) 3.99 x10^6/uL (4.30-5.70) Hemoglobin 9.9 g/dL (13.0-17.5) 9.6 g/dL (13.0-17.5) Hematocrit 32.9 % (39.0-53.0) 31.7 % (39.0-53.0) Mean Corpuscular Volume 80 fL (79-100) 79 fL (79-100) Mean Corpuscular Hemoglobin 24 pg (25-35) 24 pg (25-35) Mean Corpuscular Hemoglobin Concent 30 g/dL (31-37) 30 g/dL (31-37) Red Cell Distribution Width 17.6 % (11.5-14.5) 17.1 % (11.5-14.5) Platelet Count 218 x10^3/uL (140-400) 197 x10^3/uL (140-400) Neutrophils (%) (Auto) 87 % (31-73) 83 % (31-73) Lymphocytes (%) (Auto) 5 % (24-48) 7 % (24-48) Monocytes (%) (Auto) 8 % (0-9) 11 % (0-9) Eosinophils (%) (Auto) 0 % (0-3) 0 % (0-3) Basophils (%) (Auto) 0 % (0-3) 0 % (0-3) Neutrophils # (Auto) 8.1 x10^3uL (1.8-7.7) 8.4 x10^3uL (1.8-7.7) Lymphocytes # (Auto) 0.4 x10^3/uL (1.0-4.8) 0.7 x10^3/uL (1.0-4.8) Monocytes # (Auto) 0.7 x10^3/uL (0.0-1.1) 1.1 x10^3/uL (0.0-1.1) Eosinophils # (Auto) 0.0 x10^3/uL (0.0-0.7) 0.0 x10^3/uL (0.0-0.7) Basophils # (Auto) 0.0 x10^3/uL (0.0-0.2) 0.0 x10^3/uL (0.0-0.2) Sodium Level 145 mmol/L (136-145) 146 mmol/L (136-145) Potassium Level 3.5 mmol/L (3.5-5.1) 4.0 mmol/L (3.5-5.1) Chloride Level 102 mmol/L (98-107) 104 mmol/L (98-107) Carbon Dioxide Level 41 mmol/L (21-32) 39 mmol/L (21-32) Anion Gap 2 (6-14) 3 (6-14) Blood Urea Nitrogen 26 mg/dL (8-26) 32 mg/dL (8-26) Creatinine 1.3 mg/dL (0.7-1.3) 1.1 mg/dL (0.7-1.3) Estimated GFR (Cockcroft-Gault) 52.0 63.0 Glucose Level 115 mg/dL (70-99) 108 mg/dL (70-99) Calcium Level 8.4 mg/dL (8.5-10.1) 8.2 mg/dL (8.5-10.1) Phosphorus Level 2.3 mg/dL (2.6-4.7) 1.9 mg/dL (2.6-4.7) Magnesium Level 2.1 mg/dL (1.8-2.4) 2.1 mg/dL (1.8-2.4) Albumin 2.4 g/dL (3.4-5.0) 2.2 g/dL (3.4-5.0) Microbiology 09/09/18 Blood Culture - Final, Complete NO GROWTH AFTER 5 DAYS Medications Current Medications Albuterol/ Ipratropium (Duoneb) 3 ml STK-MED ONCE .ROUTE ; Start 09/09/18 at 18:09; Stop 09/09/18 at 18:10; Status DC Ondansetron HCl (Zofran) 4 mg PRN Q8HRS PRN IV NAUSEA/VOMITING 1ST CHOICE; Start 09/09/18 at 21:00; Stop 09/10/18 at 20:59; Status DC Morphine Sulfate (Morphine Sulfate) 2 mg PRN Q2HR PRN IV SEVERE PAIN; Start 09/09/18 at 21:00; Stop 09/10/18 at 20:59; Status DC Acetaminophen (Tylenol) 650 mg PRN Q4HRS PRN PO FEVER; Start 09/09/18 at 21:00; Stop 09/10/18 at 20:59; Status DC Hydrochlorothiazide (Microzide) 12.5 mg DAILY PO Last administered on 09/15/18at 07:23; Start 09/10/18 at 11:00 Aspirin (Children'S Aspirin) 81 mg QHS PO Last administered on 09/15/18at 20:55; Start 09/10/18 at 21:00 Levothyroxine Sodium (Synthroid) 50 mcg DAILY06 PO Last administered on 09/16/18at 06:35; Start 09/11/18 at 06:00 Methylprednisolone Sodium Succinate (SOLU-Medrol 125MG VIAL) 60 mg BID IV Last administered on 09/11/18at 20:32; Start 09/10/18 at 14:00; Stop 09/12/18 at 10:02; Status DC Albuterol Sulfate (Ventolin Neb Soln) 2.5 mg TID NEB Last administered on 09/16/18at 07:33; Start 09/10/18 at 14:00 Albuterol Sulfate (Ventolin Neb Soln) 2.5 mg PRN Q2HR PRN NEB DYSPNEA; Start 09/10/18 at 13:45 Magnesium Sulfate 50 ml @ 25 mls/hr PRN DAILY PRN IV for Mag < 1.7 on am labs; Start 09/11/18 at 11:30 Lorazepam (Ativan Inj) 1 mg PRN Q2HR PRN IV ANXIETY / AGITATION Last administered on 09/13/18at 08:33; Start 09/11/18 at 17:45; Stop 09/13/18 at 14:19; Status DC Lorazepam (Ativan Inj) 2 mg PRN Q2HR PRN IV ANXIETY / AGITATION Last administered on 09/12/18at 23:29; Start 09/11/18 at 17:45; Stop 09/13/18 at 14:19; Status DC Enoxaparin Sodium (Lovenox 40mg Syringe) 40 mg Q24H SQ Last administered on 09/14/18at 09:53; Start 09/12/18 at 09:00; Stop 09/14/18 at 12:12; Status DC Methylprednisolone Sodium Succinate (SOLU-Medrol 40MG VIAL) 40 mg DAILY IV Last administered on 09/15/18at 08:51; Start 09/13/18 at 09:00 Dextrose 1,000 ml @ 100 mls/hr Q10H IV Last administered on 09/13/18at 00:17; Start 09/12/18 at 12:00; Stop 09/13/18 at 07:59; Status DC Haloperidol Lactate (Haldol Inj) 5 mg PRN Q6HRS PRN IVP AGITATION Last administered on 09/13/18at 14:45; Start 09/13/18 at 02:45; Stop 09/15/18 at 12:04; Status DC Potassium Phosphate 15 mmol/ Sodium Chloride 255 ml @ 127.5 mls/ hr 1X ONCE IV Last administered on 09/13/18at 08:33; Start 09/13/18 at 08:30; Stop 09/13/18 at 10:29; Status DC Potassium Chloride/Water 100 ml @ 100 mls/hr Q1H IV Last administered on 09/13/18at 14:09; Start 09/13/18 at 08:30; Stop 09/13/18 at 10:29; Status DC Lidocaine/ Epinephrine (LIDOCAINE 2%-EPI 1:100,000 multi-dose) 20 ml 1X ONCE IJ Last administered on 09/13/18at 11:12; Start 09/13/18 at 09:15; Stop 09/13/18 at 09:16; Status DC Bacitracin 66076 unit/Sodium Chloride 250 ml @ 0 mls/hr 1X ONCE IRR Last administered on 09/13/18at 11:12; Start 09/13/18 at 09:15; Stop 09/13/18 at 09:16; Status DC Cefazolin Sodium 50 ml @ 100 mls/hr 1X ONCE IV Last administered on 09/13/18at 11:11; Start 09/13/18 at 09:15; Stop 09/13/18 at 09:44; Status DC Lidocaine/ Epinephrine (LIDOCAINE 2%-EPI 1:100,000 multi-dose) 20 ml STK-MED ONCE .ROUTE ; Start 09/13/18 at 09:10; Stop 09/13/18 at 09:11; Status DC Cefazolin Sodium 50 ml @ As Directed STK-MED ONCE IV ; Start 09/13/18 at 09:10; Stop 09/13/18 at 09:11; Status DC Midazolam HCl (Versed) 2 mg STK-MED ONCE .ROUTE ; Start 09/13/18 at 09:35; Stop 09/13/18 at 09:36; Status DC Propofol 20 ml @ As Directed STK-MED ONCE IV ; Start 09/13/18 at 09:35; Stop 09/13/18 at 09:36; Status DC Propofol 50 ml @ As Directed STK-MED ONCE IV ; Start 09/13/18 at 09:35; Stop 09/13/18 at 09:36; Status DC Ketamine HCl (Ketamine) 50 mg STK-MED ONCE .ROUTE ; Start 09/13/18 at 09:35; Stop 09/13/18 at 09:36; Status DC Lidocaine HCl (Lidocaine Pf 2% Vial) 5 ml STK-MED ONCE .ROUTE ; Start 09/13/18 at 09:38; Stop 09/13/18 at 09:39; Status DC Dexmedetomidine HCl 200 mcg/ Sodium Chloride 50 ml @ 0 mls/hr CONT PRN IV PER PROTOCOL Last administered on 09/13/18at 22:18; Start 09/13/18 at 10:30; Stop 09/15/18 at 12:04; Status DC Sodium Chloride 500 ml @ 500 mls/hr 1X PRN PRN IV SEE COMMENTS; Start 09/13/18 at 10:30; Stop 09/15/18 at 12:04; Status DC Info (No Anticoagulant Therapy) 1 ea CONT PRN PRN MC PER PROTOCOL; Start 09/13/18 at 11:45 Cefazolin Sodium 1 gm/Dextrose 50 ml @ 100 mls/hr 1X ONCE IV ; Start 09/13/18 at 12:00; Stop 09/13/18 at 12:29; Status UNV Oxycodone/ Acetaminophen (Percocet 5/325) 1 tab PRN Q4HRS PRN PO MILD PAIN 1-3; Start 09/13/18 at 11:45 Cefazolin Sodium (Ancef) 1 gm 1X ONCE IVP Last administered on 09/13/18at 17:17; Start 09/13/18 at 17:00; Stop 09/13/18 at 17:01; Status DC Furosemide (Lasix) 40 mg 1X ONCE IVP Last administered on 09/13/18at 12:21; Start 09/13/18 at 12:30; Stop 09/13/18 at 12:31; Status DC Hydralazine HCl (Apresoline Inj) 10 mg PRN Q4HRS PRN IVP ELEVATED BP, SEE COMMENTS Last administered on 09/14/18at 23:16; Start 09/13/18 at 12:00; Stop 09/15/18 at 15:31; Status DC Ceftriaxone Sodium (Rocephin) 1 gm Q24H IVP Last administered on 09/15/18at 14:42; Start 09/13/18 at 15:00 Lactobacillus Rhamnosus (Culturelle) 1 cap BID PO Last administered on 09/15/18at 20:55; Start 09/14/18 at 09:00 Amiodarone HCl (Cordarone) 200 mg DAILY PO Last administered on 09/15/18at 07:23; Start 09/14/18 at 14:00 Losartan Potassium (Cozaar) 50 mg DAILY PO Last administered on 09/15/18at 07:23; Start 09/14/18 at 14:00; Stop 09/15/18 at 14:06; Status DC Hydralazine HCl (Apresoline Inj) 10 mg PRN Q4HRS PRN IVP ELEVATED BP, SEE COMMENTS Last administered on 09/15/18at 23:41; Start 09/14/18 at 13:30 Olanzapine (ZyPREXA ZYDIS) 5 mg PRN BID PRN PO agitation Last administered on 09/16/18at 01:02; Start 09/15/18 at 12:15 Losartan Potassium (Cozaar) 100 mg DAILY PO ; Start 09/16/18 at 09:00 Losartan Potassium (Cozaar) 50 mg 1X ONCE PO Last administered on 09/15/18at 14:51; Start 09/15/18 at 14:15; Stop 09/15/18 at 14:16; Status DC Potassium Chloride (Klor-Con) 40 meq 1X ONCE PO Last administered on 09/15/18at 14:54; Start 09/15/18 at 14:30; Stop 09/15/18 at 14:53; Status DC Active Scripts Active Reported Hydrochlorothiazide Tablet (Hydrochlorothiazide) 12.5 Mg Tablet 12.5 Mg PO DAILY Levothyroxine Sodium 50 Mcg Tablet 1 Tab PO DAILY Amiodarone Hcl 200 Mg Tablet 1 Tab PO DAILY [Tylenol Arthritis] PO PRN PRN Calcium + Vitamin D Tablet (Calcium Carbonate/Vitamin D3) 1 Each Tablet 1 Each PO BID Losartan-Hctz 50-12.5 Mg Tab (Losartan/Hydrochlorothiazide) 1 Each Tablet 1 Tab PO QHS Crestor (Rosuvastatin Calcium) 20 Mg Tablet 1 Tab PO 3X/WEEK Aspirin 81 Mg Tab.chew 1 Tab PO QHS Vitals/I & O Vital Sign - Last 24 Hours 09/15/18 09/15/18 09/15/18 09/15/18 08:00 10:54 12:14 14:51 Temp 98.2 98.2 Pulse 67 75 Resp 18 B/P (MAP) 152/61 (91) 160/67 Pulse Ox 97 O2 Delivery Nasal Cannula Nasal Cannula Nasal Cannula O2 Flow Rate 2.0 2.0 2.0 09/15/18 09/15/18 09/15/1829/19 15:00 19:15 20:00 21:10 Temp 98.4 98.7 98.4 98.7 Pulse 75 79 Resp 18 18 B/P (MAP) 129/47 (74) 148/64 (92) Pulse Ox 97 94 98 O2 Delivery Nasal Cannula Nasal Cannula Nasal Cannula BiPAP/CPAP O2 Flow Rate 2.0 2.0 2.0 09/15/18 09/15/18 09/16/18 09/16/18 23:35 23:41 00:10 02:39 Temp 98.2 98.6 98.2 98.6 Pulse 75 75 76 78 Resp 19 18 B/P (MAP) 181/75 (110) 181/75 151/88 (109) 165/111 (129) Pulse Ox 92 96 O2 Delivery Nasal Cannula Nasal Cannula O2 Flow Rate 2.0 2.0 09/16/18 07:35 O2 Delivery Nasal Cannula O2 Flow Rate 2.0 Intake and Output 09/15/18 09/15/18 09/16/18 14:59 22:59 06:59 Intake Total 270 ml 220 ml 300 ml Output Total 360 ml 470 ml 300 ml Balance -90 ml -250 ml 0 ml CALLY GUILLEN MD September 16, 2018 07:44
[2018-09-16] MEDS: LACTOBACILLUS RHAMNOSUS GG 1 CAPSULE. PO SCH (08:34)
[2018-09-16] MEDS: AMIODARONE HCL 200 MG TABLET. PO SCH (08:34)
[2018-09-16] MEDS: hydroCHLOROthiazide 12.5 MG CAPSULE PO SCH (08:35)
[2018-09-16] MEDS: methylPREDNISolone SOD SUCC PF 40 MG/ML VIAL. IV SCH (08:35)
[2018-09-16] MEDS ORDERED: LOSARTAN POTASSIUM 50 MG TABLET. PO SCH (09:00)
[2018-09-16 11:00] VITALS: BP 159/69
[2018-09-16 12:17] LABS: KAPPA FREE 27.4 mg/L (3.3-19.4); KAPPA LAMBDA RATIO 1.77 (0.26-1.65); LAMBDA FREE 15.5 mg/L (5.7-26.3)
--- NOTE | 2018-09-16 12:41 | PDOC ---
TRUE ALEXANDER MAINTENANCE ENGINEER [employer] 09/16/18 1241: CARDIO Progress Notes Date and Time Date of Service 09/16/18 Time of Evaluation 1205 Subjective Subjective: No Chest Pain, No shortness of breath Vitals Vitals Vital Signs Date Time Temp Pulse Resp B/P (MAP) Pulse Ox O2 Delivery O2 Flow Rate FiO2 09/16/18 12:03 Nasal Cannula 2.0 09/16/18 11:00 98.4 71 18 159/69 (99) 95 98.4 Weight Weight [ ] Input and Output Intake and Output Intake and Output 09/16/18 07:00 Intake Total 790 ml Output Total 1130 ml Balance -340 ml Intake Oral 790 ml Output Urine Total 1130 ml # Bowel Movements 5 Laboratory Labs Laboratory Tests Test 09/16/18 03:30 White Blood Count 10.2 x10^3/uL (4.0-11.0) Red Blood Count 3.99 x10^6/uL (4.30-5.70) Hemoglobin 9.6 g/dL (13.0-17.5) Hematocrit 31.7 % (39.0-53.0) Mean Corpuscular Volume 79 fL (79-100) Mean Corpuscular Hemoglobin 24 pg (25-35) Mean Corpuscular Hemoglobin Concent 30 g/dL (31-37) Red Cell Distribution Width 17.1 % (11.5-14.5) Platelet Count 197 x10^3/uL (140-400) Neutrophils (%) (Auto) 83 % (31-73) Lymphocytes (%) (Auto) 7 % (24-48) Monocytes (%) (Auto) 11 % (0-9) Eosinophils (%) (Auto) 0 % (0-3) Basophils (%) (Auto) 0 % (0-3) Neutrophils # (Auto) 8.4 x10^3uL (1.8-7.7) Lymphocytes # (Auto) 0.7 x10^3/uL (1.0-4.8) Monocytes # (Auto) 1.1 x10^3/uL (0.0-1.1) Eosinophils # (Auto) 0.0 x10^3/uL (0.0-0.7) Basophils # (Auto) 0.0 x10^3/uL (0.0-0.2) Sodium Level 146 mmol/L (136-145) Potassium Level 4.0 mmol/L (3.5-5.1) Chloride Level 104 mmol/L (98-107) Carbon Dioxide Level 39 mmol/L (21-32) Anion Gap 3 (6-14) Blood Urea Nitrogen 32 mg/dL (8-26) Creatinine 1.1 mg/dL (0.7-1.3) Estimated GFR (Cockcroft-Gault) 63.0 Glucose Level 108 mg/dL (70-99) Calcium Level 8.2 mg/dL (8.5-10.1) Phosphorus Level 1.9 mg/dL (2.6-4.7) Magnesium Level 2.1 mg/dL (1.8-2.4) Albumin 2.2 g/dL (3.4-5.0) Microbiology Micro Microbiology 09/09/18 Blood Culture - Final, Complete NO GROWTH AFTER 5 DAYS Physical Exam HEENT: Neck Supple W Full Motion Chest: Symmetric LUNGS: Other (left chest pectoral PPM insertion site clean and dry. Incision well approximated. Steri strips intact) Heart: other (v-paced) Abdomen: Soft N/T Extremities: No Edema Neurology: alert, oriented, follow commands Assessment Assessment 1. High grade AVB; s/p PPM. 2. HTN; better 3. JAY JAY on CKD; improved 4. PAFIB s/p previous CV 5. Acute on chronic respiratory failure -improved 6. Metabolic encephalopathy; improved Recommendations ASA for stroke prevention given increased risk for falls Amiodarone for rhythm maintenance May transfer to SNU per CV standpoint BP monitoring at SNU Follow up in cardiology office with RN for wound check 10/01/18 at 10:15. PRADEEP VIVAS MD 09/16/18 1713: CARDIO Progress Notes Plan Plan Patient seen and examined. Agree with above nurse practitioner note. Pacemaker site appears to be clean, dry and intact. No obvious signs of infection. Supportive care. Follow-up in the office in 7-10 days for wound check. Continue left arm mobility restrictions given the patient's underlying mental status changes. TRUE ALEXANDER APRN September 16, 2018 12:41 PRADEEP VIVAS MD September 16, 2018 17:13
--- NOTE | 2018-09-16 12:53 | PDOC ---
PULMONARY PROGRESS NOTES Subjective no soa follows commands off BIPAP Vitals Vital Signs Date Time Temp Pulse Resp B/P (MAP) Pulse Ox O2 Delivery O2 Flow Rate FiO2 09/16/18 12:03 Nasal Cannula 2.0 09/16/18 11:00 98.4 71 18 159/69 (99) 95 98.4 General: Alert, No acute distress Lungs: Clear Cardiovascular: S1, S2 Abdomen: Soft, Non-tender, Other (no mass) Extremities: Other (1+edema) Skin: Warm Labs Laboratory Tests Test 09/15/18 10:30 09/16/18 03:30 White Blood Count 9.2 x10^3/uL (4.0-11.0) 10.2 x10^3/uL (4.0-11.0) Red Blood Count 4.13 x10^6/uL (4.30-5.70) 3.99 x10^6/uL (4.30-5.70) Hemoglobin 9.9 g/dL (13.0-17.5) 9.6 g/dL (13.0-17.5) Hematocrit 32.9 % (39.0-53.0) 31.7 % (39.0-53.0) Mean Corpuscular Volume 80 fL (79-100) 79 fL (79-100) Mean Corpuscular Hemoglobin 24 pg (25-35) 24 pg (25-35) Mean Corpuscular Hemoglobin Concent 30 g/dL (31-37) 30 g/dL (31-37) Red Cell Distribution Width 17.6 % (11.5-14.5) 17.1 % (11.5-14.5) Platelet Count 218 x10^3/uL (140-400) 197 x10^3/uL (140-400) Neutrophils (%) (Auto) 87 % (31-73) 83 % (31-73) Lymphocytes (%) (Auto) 5 % (24-48) 7 % (24-48) Monocytes (%) (Auto) 8 % (0-9) 11 % (0-9) Eosinophils (%) (Auto) 0 % (0-3) 0 % (0-3) Basophils (%) (Auto) 0 % (0-3) 0 % (0-3) Neutrophils # (Auto) 8.1 x10^3uL (1.8-7.7) 8.4 x10^3uL (1.8-7.7) Lymphocytes # (Auto) 0.4 x10^3/uL (1.0-4.8) 0.7 x10^3/uL (1.0-4.8) Monocytes # (Auto) 0.7 x10^3/uL (0.0-1.1) 1.1 x10^3/uL (0.0-1.1) Eosinophils # (Auto) 0.0 x10^3/uL (0.0-0.7) 0.0 x10^3/uL (0.0-0.7) Basophils # (Auto) 0.0 x10^3/uL (0.0-0.2) 0.0 x10^3/uL (0.0-0.2) Sodium Level 145 mmol/L (136-145) 146 mmol/L (136-145) Potassium Level 3.5 mmol/L (3.5-5.1) 4.0 mmol/L (3.5-5.1) Chloride Level 102 mmol/L (98-107) 104 mmol/L (98-107) Carbon Dioxide Level 41 mmol/L (21-32) 39 mmol/L (21-32) Anion Gap 2 (6-14) 3 (6-14) Blood Urea Nitrogen 26 mg/dL (8-26) 32 mg/dL (8-26) Creatinine 1.3 mg/dL (0.7-1.3) 1.1 mg/dL (0.7-1.3) Estimated GFR (Cockcroft-Gault) 52.0 63.0 Glucose Level 115 mg/dL (70-99) 108 mg/dL (70-99) Calcium Level 8.4 mg/dL (8.5-10.1) 8.2 mg/dL (8.5-10.1) Phosphorus Level 2.3 mg/dL (2.6-4.7) 1.9 mg/dL (2.6-4.7) Magnesium Level 2.1 mg/dL (1.8-2.4) 2.1 mg/dL (1.8-2.4) Albumin 2.4 g/dL (3.4-5.0) 2.2 g/dL (3.4-5.0) Laboratory Tests Test 09/16/18 03:30 White Blood Count 10.2 x10^3/uL (4.0-11.0) Red Blood Count 3.99 x10^6/uL (4.30-5.70) Hemoglobin 9.6 g/dL (13.0-17.5) Hematocrit 31.7 % (39.0-53.0) Mean Corpuscular Volume 79 fL (79-100) Mean Corpuscular Hemoglobin 24 pg (25-35) Mean Corpuscular Hemoglobin Concent 30 g/dL (31-37) Red Cell Distribution Width 17.1 % (11.5-14.5) Platelet Count 197 x10^3/uL (140-400) Neutrophils (%) (Auto) 83 % (31-73) Lymphocytes (%) (Auto) 7 % (24-48) Monocytes (%) (Auto) 11 % (0-9) Eosinophils (%) (Auto) 0 % (0-3) Basophils (%) (Auto) 0 % (0-3) Neutrophils # (Auto) 8.4 x10^3uL (1.8-7.7) Lymphocytes # (Auto) 0.7 x10^3/uL (1.0-4.8) Monocytes # (Auto) 1.1 x10^3/uL (0.0-1.1) Eosinophils # (Auto) 0.0 x10^3/uL (0.0-0.7) Basophils # (Auto) 0.0 x10^3/uL (0.0-0.2) Sodium Level 146 mmol/L (136-145) Potassium Level 4.0 mmol/L (3.5-5.1) Chloride Level 104 mmol/L (98-107) Carbon Dioxide Level 39 mmol/L (21-32) Anion Gap 3 (6-14) Blood Urea Nitrogen 32 mg/dL (8-26) Creatinine 1.1 mg/dL (0.7-1.3) Estimated GFR (Cockcroft-Gault) 63.0 Glucose Level 108 mg/dL (70-99) Calcium Level 8.2 mg/dL (8.5-10.1) Phosphorus Level 1.9 mg/dL (2.6-4.7) Magnesium Level 2.1 mg/dL (1.8-2.4) Albumin 2.2 g/dL (3.4-5.0) Medications Active Scripts Medications Dose Route/Sig Max Daily Dose Days Date Category Hydrochlorothiazide Tablet (Hydrochlorothiazide) 12.5 Mg Tablet 12.5 Mg PO DAILY 09/09/18 Reported Levothyroxine Sodium 50 Mcg Tablet 1 Tab PO DAILY 09/09/18 Reported Amiodarone Hcl 200 Mg Tablet 1 Tab PO DAILY 10/16/17 Reported [Tylenol Arthritis] PO PRN PRN 08/28/17 Reported Calcium + Vitamin D Tablet (Calcium Carbonate/Vitamin D3) 1 Each Tablet 1 Each PO BID 08/28/17 Reported Losartan-Hctz 50-12.5 Mg Tab (Losartan/Hydrochlorothiazide) 1 Each Tablet 1 Tab PO QHS 08/28/17 Reported Crestor (Rosuvastatin Calcium) 20 Mg Tablet 1 Tab PO 3X/WEEK 08/28/17 Reported Aspirin 81 Mg Tab.chew 1 Tab PO QHS 08/28/17 Reported Comments CXR 09/14 BILATERAL INFILTRATES. R> LEFT Impression . MPRESSION: 1. Acute hypoxemic respiratory failure. MULTIFATORIAL 2. Chronic obstructive pulmonary disease AECOPD? 3. Yqcqr-ye-ieamivv renal insufficiency. 4. Dyozl-re-dmggknz encephalopathy, suspect multifactorial 5. Paroxysmal atrial fibrillation status post cardioversion in the past. CHB 6. Hypothyroidism. 7. S/P PACER 8. ABNORMAL CXR suspect CHF/ Pneumonia 9. 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 CLINICALLY BETTER EMPIRIC ANTIBX LASIX PER CARD NUPURN BLANCA D/Haley HERNANDEZ DC TO SARAH ONEILL MD September 16, 2018 12:53
[2018-09-16] MEDS ORDERED: POTASSIUM & SODIUM PHOSPHATES PACKET. PO SCH (13:00)
[2018-09-16] MEDS ORDERED: PRED20TA PO (13:05)
[2018-09-16] MEDS ORDERED: DOXY100C14 PO (13:05)
[2018-09-16] MEDS ORDERED: OLAN5TAB5 PO (13:05)
[2018-09-16] MEDS ORDERED: LACT1CAP19 PO (13:05)
[2018-09-16] MEDS ORDERED: OXYC1TAB15 PO (13:05)
[2018-09-16] MEDS ORDERED: ALBU2.5V8 NEB (13:05)
--- NOTE | 2018-09-16 13:05 | PDOC3 ---
Discharge Summary Visit Information Date of Admission: September 09, 2018 Date of Discharge: September 16, 2018 Admitting Diagnosis: CVA Final Diagnosis Problems Medical Problems: (1) Acute kidney injury Status: Acute (2) CVA (cerebral vascular accident) Status: Acute (3) Elevated troponin Status: Acute (4) Hypoxia Status: Acute Brief Hospital Course Allergies Allergies Coded Allergies Type Severity Reaction Last Updated Verified No Known Drug Allergies 10/19/17 No Vital Signs Vital Signs Date Time Temp Pulse Resp B/P (MAP) Pulse Ox O2 Delivery O2 Flow Rate FiO2 09/16/18 12:03 Nasal Cannula 2.0 09/16/18 11:00 98.4 71 18 159/69 (99) 95 98.4 Lab Results Laboratory Tests Test 09/15/18 10:30 09/16/18 03:30 White Blood Count 9.2 x10^3/uL (4.0-11.0) 10.2 x10^3/uL (4.0-11.0) Red Blood Count 4.13 x10^6/uL (4.30-5.70) 3.99 x10^6/uL (4.30-5.70) Hemoglobin 9.9 g/dL (13.0-17.5) 9.6 g/dL (13.0-17.5) Hematocrit 32.9 % (39.0-53.0) 31.7 % (39.0-53.0) Mean Corpuscular Volume 80 fL (79-100) 79 fL (79-100) Mean Corpuscular Hemoglobin 24 pg (25-35) 24 pg (25-35) Mean Corpuscular Hemoglobin Concent 30 g/dL (31-37) 30 g/dL (31-37) Red Cell Distribution Width 17.6 % (11.5-14.5) 17.1 % (11.5-14.5) Platelet Count 218 x10^3/uL (140-400) 197 x10^3/uL (140-400) Neutrophils (%) (Auto) 87 % (31-73) 83 % (31-73) Lymphocytes (%) (Auto) 5 % (24-48) 7 % (24-48) Monocytes (%) (Auto) 8 % (0-9) 11 % (0-9) Eosinophils (%) (Auto) 0 % (0-3) 0 % (0-3) Basophils (%) (Auto) 0 % (0-3) 0 % (0-3) Neutrophils # (Auto) 8.1 x10^3uL (1.8-7.7) 8.4 x10^3uL (1.8-7.7) Lymphocytes # (Auto) 0.4 x10^3/uL (1.0-4.8) 0.7 x10^3/uL (1.0-4.8) Monocytes # (Auto) 0.7 x10^3/uL (0.0-1.1) 1.1 x10^3/uL (0.0-1.1) Eosinophils # (Auto) 0.0 x10^3/uL (0.0-0.7) 0.0 x10^3/uL (0.0-0.7) Basophils # (Auto) 0.0 x10^3/uL (0.0-0.2) 0.0 x10^3/uL (0.0-0.2) Sodium Level 145 mmol/L (136-145) 146 mmol/L (136-145) Potassium Level 3.5 mmol/L (3.5-5.1) 4.0 mmol/L (3.5-5.1) Chloride Level 102 mmol/L (98-107) 104 mmol/L (98-107) Carbon Dioxide Level 41 mmol/L (21-32) 39 mmol/L (21-32) Anion Gap 2 (6-14) 3 (6-14) Blood Urea Nitrogen 26 mg/dL (8-26) 32 mg/dL (8-26) Creatinine 1.3 mg/dL (0.7-1.3) 1.1 mg/dL (0.7-1.3) Estimated GFR (Cockcroft-Gault) 52.0 63.0 Glucose Level 115 mg/dL (70-99) 108 mg/dL (70-99) Calcium Level 8.4 mg/dL (8.5-10.1) 8.2 mg/dL (8.5-10.1) Phosphorus Level 2.3 mg/dL (2.6-4.7) 1.9 mg/dL (2.6-4.7) Magnesium Level 2.1 mg/dL (1.8-2.4) 2.1 mg/dL (1.8-2.4) Albumin 2.4 g/dL (3.4-5.0) 2.2 g/dL (3.4-5.0) Laboratory Tests Test 09/16/18 03:30 White Blood Count 10.2 x10^3/uL (4.0-11.0) Red Blood Count 3.99 x10^6/uL (4.30-5.70) Hemoglobin 9.6 g/dL (13.0-17.5) Hematocrit 31.7 % (39.0-53.0) Mean Corpuscular Volume 79 fL (79-100) Mean Corpuscular Hemoglobin 24 pg (25-35) Mean Corpuscular Hemoglobin Concent 30 g/dL (31-37) Red Cell Distribution Width 17.1 % (11.5-14.5) Platelet Count 197 x10^3/uL (140-400) Neutrophils (%) (Auto) 83 % (31-73) Lymphocytes (%) (Auto) 7 % (24-48) Monocytes (%) (Auto) 11 % (0-9) Eosinophils (%) (Auto) 0 % (0-3) Basophils (%) (Auto) 0 % (0-3) Neutrophils # (Auto) 8.4 x10^3uL (1.8-7.7) Lymphocytes # (Auto) 0.7 x10^3/uL (1.0-4.8) Monocytes # (Auto) 1.1 x10^3/uL (0.0-1.1) Eosinophils # (Auto) 0.0 x10^3/uL (0.0-0.7) Basophils # (Auto) 0.0 x10^3/uL (0.0-0.2) Sodium Level 146 mmol/L (136-145) Potassium Level 4.0 mmol/L (3.5-5.1) Chloride Level 104 mmol/L (98-107) Carbon Dioxide Level 39 mmol/L (21-32) Anion Gap 3 (6-14) Blood Urea Nitrogen 32 mg/dL (8-26) Creatinine 1.1 mg/dL (0.7-1.3) Estimated GFR (Cockcroft-Gault) 63.0 Glucose Level 108 mg/dL (70-99) Calcium Level 8.2 mg/dL (8.5-10.1) Phosphorus Level 1.9 mg/dL (2.6-4.7) Magnesium Level 2.1 mg/dL (1.8-2.4) Albumin 2.2 g/dL (3.4-5.0) Brief Hospital Course Mr. Sparks is an 88 year old male patient who was brought to the ER of [facility] on 09/09/18 with multiple complaints as dyspnea on exertion, mental status changes, confusion, lethargy. Family stated that patient had been weak and confused for the few days leading up to admission. He has history of atrial fibrillation for which he was cardioverted in the past. His HCT showed subacute infarct, small chronic subdural hematoma. Seen by neurology for this, treated with ASA. Had severe hypoxemia improved eventually with BIPAP nightly, seen by pulmonology as well. For his atrial fibrillation and bradycardia was seen by cardiology and is s/p PPM. He was on BIPAP overnight, sitting in chair now, has not needed haldol or prec edex for 24 hours, has been less agitated since then. No bradycardia. BP was up yesterday, increased his losartan with good effect Reviewed subspecialist notes, will look into rehabilitation, d/w SW can go today on 5 days doxycycline and prednisone for his COPD exacerbation. Acute/subacute left frontal lobe infarct Stroke symptoms Acute hypoxemic respiratory failure. Chronic obstructive pulmonary disease Rlzyw-un-wxqdgdi renal insufficiency. Gtxpa-oy-cenbrjd encephalopathy, suspect multifactorial, resolved. Paroxysmal atrial fibrillation status post cardioversion in the past. CHB s/p pacemaker insertion Hypothyroidism. Left frontal lobe chronic SDH ? Lethargy. HTN. HLD. Bradycardia. Elevated Troponin. 36 minutes spent on patient care Discharge Information Condition at Discharge: Improved Follow Up: Weeks (2) Disposition/Orders: D/C to Another Facility Scheduled Albuterol Sulfate (Proair Hfa) 8.5 Gm Hfa.aer.ad, 2.5 MG NEB TID for Shortness of breath for 30 Days, #90 Prescribed by: CALLY GUILLEN MD on 09/16/18 1305 Amiodarone Hcl (Amiodarone Hcl) 200 Mg Tablet, 1 TAB PO DAILY, #90 Ref 1 (Reported) Entered as Reported by: MICHAEL CARTER on 10/16/17 1419 Last Action: Continued on 09/14/18 1325 by TRUE ALEXANDER APRN Aspirin (Aspirin) 81 Mg Tab.chew, 1 TAB PO QHS, #30 Ref 3 (Reported) Entered as Reported by: MICHAEL CARTER on 08/28/17 1256 Last Action: Continued on 09/10/18 1118 by KAVITA VERDE Calcium Carbonate/Vitamin D3 (Calcium + Vitamin D Tablet) 1 Each Tablet, 1 EACH PO BID, (Reported) Entered as Reported by: MICHAEL CARTER on 08/28/17 1303 Last Action: Reviewed on 09/09/182358 by DONAN CISSE Doxycycline Monohydrate (Doxycycline Monohydrate) 100 Mg Capsule, 1 CAP PO BID for copd for 5 Days, #10 Prescribed by: CALLY GUILLEN MD on 09/16/18 1305 Lactobacillus Rhamnosus Gg (Culturelle) 1 Each Cap.sprink, 1 CAP PO BID for Diarrhea for 7 Days, #14 Prescribed by: CALLY GUILLEN MD on 09/16/18 1305 Levothyroxine Sodium (Levothyroxine Sodium) 50 Mcg Tablet, 1 TAB PO DAILY, #30 Ref 5 (Reported) Entered as Reported by: ROCKY VOSS RN on 09/09/182125 Last Taken: 50MG on Unknown Date & Time Last Action: Converted on 09/10/181117 by KAVITA VERDE Losartan/Hydrochlorothiazide (Losartan-Hctz 50-12.5 Mg Tab) 1 Each Tablet, 1 TAB PO QHS, #30 Ref 5 (Reported) Entered as Reported by: MICHAEL CARTER on 08/28/17 1301 Last Action: Reviewed on 09/09/182358 by DONNA CISSE Prednisone (Prednisone) 20 Mg Tablet, 1 TAB PO DAILY for COPD for 5 Days, #5 Prescribed by: CALLY GUILLEN MD on 09/16/18 1305 Rosuvastatin Calcium (Crestor) 20 Mg Tablet, 1 TAB PO 3X/WEEK, #30 Ref 5 (Reported) Entered as Reported by: MICHAEL CARTER on 08/28/17 1300 Last Action: Reviewed on 09/09/182358 by DONNA CISSE Scheduled PRN Olanzapine (Zyprexa Zydis) 5 Mg Tab.rapdis, 5 MG PO PRN BID PRN for agitation for 30 Days, #60 Prescribed by: CALLY GUILLEN MD on 09/16/18 1305 Oxycodone/Apap 5-325 (Percocet 5-325 Mg Tablet ) 1 Each Tablet, 1 TAB PO PRN Q4HRS PRN for SEVERE PAIN 7-10 for 6 Days, #18 Prescribed by: CALLY GUILLEN MD on 09/16/18 1305 [Tylenol Arthritis] , PO PRN PRN for PAIN, (Reported) Entered as Reported by: MICHAEL CARTER on 08/28/17 1305 Last Action: Reviewed on 09/09/18 0008 by DONNA CISSE Discontinued Medications Hydrochlorothiazide (Hydrochlorothiazide Tablet) 12.5 Mg Tablet, 12.5 MG PO DAILY for DIURETIC, Ref 0 (Reported) Entered as Reported by: ROCKY VOSS RN on 09/09/182125 Last Taken: 12.5MG on Unknown Date & Time Last Action: Converted on 09/10/18 1055 by CALLY SHIRLEY MD September 16, 2018 13:05
--- NOTE | 2018-09-16 13:08 | SNU/HH DC ---
DISCHARGE ORDERS DISCHARGE INFORMATION: DISCHARGE DATE: September 16, 2018 FINAL DIAGNOSIS Problems Medical Problems: (1) Acute kidney injury Status: Acute (2) CVA (cerebral vascular accident) Status: Acute (3) Elevated troponin Status: Acute (4) Hypoxia Status: Acute CONDITION ON DISCHARGE: Stable CODE STATUS: Code Status: DNR/DNI FDC: SNF STAY <30 DAYS: Yes POST DISCHARGE ORDERS: ACTIVITY ORDERS: Avoid exertion WEIGHT BEARING STATUS: As tolerated BATHING ORDERS: Shower-keep dressing dry DIET AFTER DISCHARGE: Cardiac CHECKS AFTER DISCHARGE: CHECKS AFTER DISCHARGE: Check blood press - daily, Check your Temp as needed, Weigh Yourself Daily FOLLOW-UP: PHYSICIAN FOLLOW-UP: Dr. Jeffries - 2 weeks LAB ORDERS FOR FOLLOW-UP: [facility] 09/19/18 TREATMENT/EQUIPMENT ORDERS: RESPIRATORY EQUIPMENT NEEDED: BiPAP ([facility] 03/10) Physical Therapy For: Evalulation/Treatment Occupational Therapy For: Evaluation/Treatment Speech Language Pathology For: Evaluation/Treatment DISCHARGE MEDICATIONS: Home Meds Active Scripts Doxycycline Monohydrate (DOXYCYCLINE MONOHYDRATE) 100 Mg Capsule, 1 CAP PO BID for copd for 5 Days, #10 CAP Prov:CALLY GUILLEN MD 09/16/18 Prednisone (PREDNISONE) 20 Mg Tablet, 1 TAB PO DAILY for COPD for 5 Days, #5 TAB Prov:CALLY GUILLEN MD 09/16/18 Oxycodone/Apap 5-325 (PERCOCET 5-325 MG TABLET ) 1 Each Tablet, 1 TAB PO PRN Q4HRS PRN for SEVERE PAIN 7-10 for 6 Days, #18 TAB Prov:CALLY GUILLEN MD 09/16/18 Olanzapine (ZYPREXA ZYDIS) 5 Mg Tab.rapdis, 5 MG PO PRN BID PRN for agitation for 30 Days, #60 TAB Prov:CALLY GUILLEN MD 09/16/18 Lactobacillus Rhamnosus Gg (CULTURELLE) 1 Each Cap.sprink, 1 CAP PO BID for Diarrhea for 7 Days, #14 CAP Prov:CALLY GUILLEN MD 09/16/18 Albuterol Sulfate (Proair Hfa) 8.5 Gm Hfa.aer.ad, 2.5 MG NEB TID for Shortness of breath for 30 Days, #90 INHALER Prov:CALLY GUILLEN MD 09/16/18 Reported Medications Levothyroxine Sodium (LEVOTHYROXINE SODIUM) 50 Mcg Tablet, 1 TAB PO DAILY, #30 TAB 5 Refills 09/09/18 Amiodarone Hcl (AMIODARONE HCL) 200 Mg Tablet, 1 TAB PO DAILY, #90 TAB 1 Refill 10/16/17 [Tylenol Arthritis] No Conflict Check, PO PRN PRN for PAIN 08/28/17 Calcium Carbonate/Vitamin D3 (CALCIUM + VITAMIN D TABLET) 1 Each Tablet, 1 EACH PO BID, TAB 08/28/17 Losartan/Hydrochlorothiazide (LOSARTAN-HCTZ 50-12.5 MG TAB) 1 Each Tablet, 1 TAB PO QHS, #30 TAB 5 Refills 08/28/17 Rosuvastatin Calcium (CRESTOR) 20 Mg Tablet, 1 TAB PO 3X/WEEK, #30 TAB 5 Refills 08/28/17 Aspirin (ASPIRIN) 81 Mg Tab.chew, 1 TAB PO QHS, #30 TAB 3 Refills 08/28/17 Discontinued Reported Medications Hydrochlorothiazide (HYDROCHLOROTHIAZIDE TABLET) 12.5 Mg Tablet, 12.5 MG PO DAILY for DIURETIC, TAB 0 Refills 09/09/18 CALLY GUILLEN MD September 16, 2018 13:08
--- NOTE | 2018-09-16 13:18 | NUR ---
SS following up with discharge planning. SS reviewed pt chart. Pt accepted at [facility], ; fax [phone]. SS phoned and faxed discharge orders to [facility]. Pt will discharge today and go to [facility] at 1430. [facility] to provide transportation. Pt, pt's RN, and pt's daughter notified.
[2018-09-16 14:14] LABS: ALBUM 2.7 g/dL (2.9-4.4); ALPHA 1 0.4 g/dL (0.0-0.4); ALPHA 2 0.7 g/dL (0.4-1.0); BETA 1.4 g/dL (0.7-1.3); IMMUNOGLOBULIN A 514 mg/dL (61-437); IMMUNOGLOBULIN G 1042 mg/dL (700-1600); IMMUNOGLOBULIN M 34 mg/dL (15-143); PROTEIN TOTAL 6.2 g/dL (6.0-8.5); SPEP AG RATIO 0.8 (0.7-1.7)
[2018-09-16] MEDS: cefTRIAXone IV Push 1 GM VIAL. IVP SCH (14:18)
--- NOTE | 2018-09-16 14:50 | PDOC ---
PROGRESS NOTES Assessment Problems Medical Problems: (1) Acute kidney injury Status: Acute (2) CVA (cerebral vascular accident) Status: Acute (3) Elevated troponin Status: Acute (4) Hypoxia Status: Acute Stroke symptoms, no abnormal findings on MRI Metabolic encephalopathy, much better today of course off sedation Plan Treat medical diseases Transfer to [facility] today Follow-up with neurology PRN Subjective No complaints Objective Vital Signs Date Time Temp Pulse Resp B/P (MAP) Pulse Ox O2 Delivery O2 Flow Rate FiO2 09/16/18 12:03 Nasal Cannula 2.0 09/16/18 11:00 98.4 71 18 159/69 (99) 95 98.4 Intake and Output 09/16/18 07:00 Intake Total 790 ml Output Total 1130 ml Balance -340 ml Intake Oral 790 ml Output Urine Total 1130 ml # Bowel Movements 5 PHYSICAL EXAM Alert, follows a few commands, knows location, not date PERRL. EOMI. CN: no focal findings. Muscle tone: normal. Muscle strength: 4/5 DTR: 2+ Plantar reflex: flexor Gait: not examined in bed. Sensory exam: no abnormal findings. No cerebellar signs elicited. Review of Relevant I have reviewed the following items jonathon (where applicable) has been applied. Labs Laboratory Tests Test 09/15/18 10:30 09/16/18 03:30 White Blood Count 9.2 x10^3/uL (4.0-11.0) 10.2 x10^3/uL (4.0-11.0) Red Blood Count 4.13 x10^6/uL (4.30-5.70) 3.99 x10^6/uL (4.30-5.70) Hemoglobin 9.9 g/dL (13.0-17.5) 9.6 g/dL (13.0-17.5) Hematocrit 32.9 % (39.0-53.0) 31.7 % (39.0-53.0) Mean Corpuscular Volume 80 fL (79-100) 79 fL (79-100) Mean Corpuscular Hemoglobin 24 pg (25-35) 24 pg (25-35) Mean Corpuscular Hemoglobin Concent 30 g/dL (31-37) 30 g/dL (31-37) Red Cell Distribution Width 17.6 % (11.5-14.5) 17.1 % (11.5-14.5) Platelet Count 218 x10^3/uL (140-400) 197 x10^3/uL (140-400) Neutrophils (%) (Auto) 87 % (31-73) 83 % (31-73) Lymphocytes (%) (Auto) 5 % (24-48) 7 % (24-48) Monocytes (%) (Auto) 8 % (0-9) 11 % (0-9) Eosinophils (%) (Auto) 0 % (0-3) 0 % (0-3) Basophils (%) (Auto) 0 % (0-3) 0 % (0-3) Neutrophils # (Auto) 8.1 x10^3uL (1.8-7.7) 8.4 x10^3uL (1.8-7.7) Lymphocytes # (Auto) 0.4 x10^3/uL (1.0-4.8) 0.7 x10^3/uL (1.0-4.8) Monocytes # (Auto) 0.7 x10^3/uL (0.0-1.1) 1.1 x10^3/uL (0.0-1.1) Eosinophils # (Auto) 0.0 x10^3/uL (0.0-0.7) 0.0 x10^3/uL (0.0-0.7) Basophils # (Auto) 0.0 x10^3/uL (0.0-0.2) 0.0 x10^3/uL (0.0-0.2) Sodium Level 145 mmol/L (136-145) 146 mmol/L (136-145) Potassium Level 3.5 mmol/L (3.5-5.1) 4.0 mmol/L (3.5-5.1) Chloride Level 102 mmol/L (98-107) 104 mmol/L (98-107) Carbon Dioxide Level 41 mmol/L (21-32) 39 mmol/L (21-32) Anion Gap 2 (6-14) 3 (6-14) Blood Urea Nitrogen 26 mg/dL (8-26) 32 mg/dL (8-26) Creatinine 1.3 mg/dL (0.7-1.3) 1.1 mg/dL (0.7-1.3) Estimated GFR (Cockcroft-Gault) 52.0 63.0 Glucose Level 115 mg/dL (70-99) 108 mg/dL (70-99) Calcium Level 8.4 mg/dL (8.5-10.1) 8.2 mg/dL (8.5-10.1) Phosphorus Level 2.3 mg/dL (2.6-4.7) 1.9 mg/dL (2.6-4.7) Magnesium Level 2.1 mg/dL (1.8-2.4) 2.1 mg/dL (1.8-2.4) Albumin 2.4 g/dL (3.4-5.0) 2.2 g/dL (3.4-5.0) Laboratory Tests Test 09/16/18 03:30 White Blood Count 10.2 x10^3/uL (4.0-11.0) Red Blood Count 3.99 x10^6/uL (4.30-5.70) Hemoglobin 9.6 g/dL (13.0-17.5) Hematocrit 31.7 % (39.0-53.0) Mean Corpuscular Volume 79 fL (79-100) Mean Corpuscular Hemoglobin 24 pg (25-35) Mean Corpuscular Hemoglobin Concent 30 g/dL (31-37) Red Cell Distribution Width 17.1 % (11.5-14.5) Platelet Count 197 x10^3/uL (140-400) Neutrophils (%) (Auto) 83 % (31-73) Lymphocytes (%) (Auto) 7 % (24-48) Monocytes (%) (Auto) 11 % (0-9) Eosinophils (%) (Auto) 0 % (0-3) Basophils (%) (Auto) 0 % (0-3) Neutrophils # (Auto) 8.4 x10^3uL (1.8-7.7) Lymphocytes # (Auto) 0.7 x10^3/uL (1.0-4.8) Monocytes # (Auto) 1.1 x10^3/uL (0.0-1.1) Eosinophils # (Auto) 0.0 x10^3/uL (0.0-0.7) Basophils # (Auto) 0.0 x10^3/uL (0.0-0.2) Sodium Level 146 mmol/L (136-145) Potassium Level 4.0 mmol/L (3.5-5.1) Chloride Level 104 mmol/L (98-107) Carbon Dioxide Level 39 mmol/L (21-32) Anion Gap 3 (6-14) Blood Urea Nitrogen 32 mg/dL (8-26) Creatinine 1.1 mg/dL (0.7-1.3) Estimated GFR (Cockcroft-Gault) 63.0 Glucose Level 108 mg/dL (70-99) Calcium Level 8.2 mg/dL (8.5-10.1) Phosphorus Level 1.9 mg/dL (2.6-4.7) Magnesium Level 2.1 mg/dL (1.8-2.4) Albumin 2.2 g/dL (3.4-5.0) Microbiology 09/09/18 Blood Culture - Final, Complete NO GROWTH AFTER 5 DAYS Medications Current Medications Albuterol/ Ipratropium (Duoneb) 3 ml STK-MED ONCE .ROUTE ; Start 09/09/18 at 18:09; Stop 09/09/18 at 18:10; Status DC Ondansetron HCl (Zofran) 4 mg PRN Q8HRS PRN IV NAUSEA/VOMITING 1ST CHOICE; Start 09/09/18 at 21:00; Stop 09/10/18 at 20:59; Status DC Morphine Sulfate (Morphine Sulfate) 2 mg PRN Q2HR PRN IV SEVERE PAIN; Start 09/09/18 at 21:00; Stop 09/10/18 at 20:59; Status DC Acetaminophen (Tylenol) 650 mg PRN Q4HRS PRN PO FEVER; Start 09/09/18 at 21:00; Stop 09/10/18 at 20:59; Status DC Hydrochlorothiazide (Microzide) 12.5 mg DAILY PO Last administered on 09/16/18at 08:35; Start 09/10/18 at 11:00 Aspirin (Children'S Aspirin) 81 mg QHS PO Last administered on 09/15/18at 20:55; Start 09/10/18 at 21:00 Levothyroxine Sodium (Synthroid) 50 mcg DAILY06 PO Last administered on 09/16/18at 06:35; Start 09/11/18 at 06:00 Methylprednisolone Sodium Succinate (SOLU-Medrol 125MG VIAL) 60 mg BID IV Last administered on 09/11/18at 20:32; Start 09/10/18 at 14:00; Stop 09/12/18 at 10:02; Status DC Albuterol Sulfate (Ventolin Neb Soln) 2.5 mg TID NEB Last administered on 09/16/18at 12:03; Start 09/10/18 at 14:00 Albuterol Sulfate (Ventolin Neb Soln) 2.5 mg PRN Q2HR PRN NEB DYSPNEA; Start 09/10/18 at 13:45 Magnesium Sulfate 50 ml @ 25 mls/hr PRN DAILY PRN IV for Mag < 1.7 on am labs; Start 09/11/18 at 11:30 Lorazepam (Ativan Inj) 1 mg PRN Q2HR PRN IV ANXIETY / AGITATION Last administered on 09/13/18at 08:33; Start 09/11/18 at 17:45; Stop 09/13/18 at 14:19; Status DC Lorazepam (Ativan Inj) 2 mg PRN Q2HR PRN IV ANXIETY / AGITATION Last administered on 09/12/18at 23:29; Start 09/11/18 at 17:45; Stop 09/13/18 at 14:19; Status DC Enoxaparin Sodium (Lovenox 40mg Syringe) 40 mg Q24H SQ Last administered on 09/14/18at 09:53; Start 09/12/18 at 09:00; Stop 09/14/18 at 12:12; Status DC Methylprednisolone Sodium Succinate (SOLU-Medrol 40MG VIAL) 40 mg DAILY IV Last administered on 09/16/18at 08:35; Start 09/13/18 at 09:00 Dextrose 1,000 ml @ 100 mls/hr Q10H IV Last administered on 09/13/18at 00:17; Start 09/12/18 at 12:00; Stop 09/13/18 at 07:59; Status DC Haloperidol Lactate (Haldol Inj) 5 mg PRN Q6HRS PRN IVP AGITATION Last administered on 09/13/18at 14:45; Start 09/13/18 at 02:45; Stop 09/15/18 at 12:04; Status DC Potassium Phosphate 15 mmol/ Sodium Chloride 255 ml @ 127.5 mls/ hr 1X ONCE IV Last administered on 09/13/18at 08:33; Start 09/13/18 at 08:30; Stop 09/13/18 at 10:29; Status DC Potassium Chloride/Water 100 ml @ 100 mls/hr Q1H IV Last administered on 09/13/18at 14:09; Start 09/13/18 at 08:30; Stop 09/13/18 at 10:29; Status DC Lidocaine/ Epinephrine (LIDOCAINE 2%-EPI 1:100,000 multi-dose) 20 ml 1X ONCE IJ Last administered on 09/13/18at 11:12; Start 09/13/18 at 09:15; Stop 09/13/18 at 09:16; Status DC Bacitracin 87812 unit/Sodium Chloride 250 ml @ 0 mls/hr 1X ONCE IRR Last administered on 09/13/18at 11:12; Start 09/13/18 at 09:15; Stop 09/13/18 at 09:16; Status DC Cefazolin Sodium 50 ml @ 100 mls/hr 1X ONCE IV Last administered on 09/13/18at 11:11; Start 09/13/18 at 09:15; Stop 09/13/18 at 09:44; Status DC Lidocaine/ Epinephrine (LIDOCAINE 2%-EPI 1:100,000 multi-dose) 20 ml STK-MED ONCE .ROUTE ; Start 09/13/18 at 09:10; Stop 09/13/18 at 09:11; Status DC Cefazolin Sodium 50 ml @ As Directed STK-MED ONCE IV ; Start 09/13/18 at 09:10; Stop 09/13/18 at 09:11; Status DC Midazolam HCl (Versed) 2 mg STK-MED ONCE .ROUTE ; Start 09/13/18 at 09:35; Stop 09/13/18 at 09:36; Status DC Propofol 20 ml @ As Directed STK-MED ONCE IV ; Start 09/13/18 at 09:35; Stop 09/13/18 at 09:36; Status DC Propofol 50 ml @ As Directed STK-MED ONCE IV ; Start 09/13/18 at 09:35; Stop 09/13/18 at 09:36; Status DC Ketamine HCl (Ketamine) 50 mg STK-MED ONCE .ROUTE ; Start 09/13/18 at 09:35; Stop 09/13/18 at 09:36; Status DC Lidocaine HCl (Lidocaine Pf 2% Vial) 5 ml STK-MED ONCE .ROUTE ; Start 09/13/18 at 09:38; Stop 09/13/18 at 09:39; Status DC Dexmedetomidine HCl 200 mcg/ Sodium Chloride 50 ml @ 0 mls/hr CONT PRN IV PER PROTOCOL Last administered on 09/13/18at 22:18; Start 09/13/18 at 10:30; Stop 09/15/18 at 12:04; Status DC Sodium Chloride 500 ml @ 500 mls/hr 1X PRN PRN IV SEE COMMENTS; Start 09/13/18 at 10:30; Stop 09/15/18 at 12:04; Status DC Info (No Anticoagulant Therapy) 1 ea CONT PRN PRN MC PER PROTOCOL; Start 09/13/18 at 11:45 Cefazolin Sodium 1 gm/Dextrose 50 ml @ 100 mls/hr 1X ONCE IV ; Start 09/13/18 at 12:00; Stop 09/13/18 at 12:29; Status UNV Oxycodone/ Acetaminophen (Percocet 5/325) 1 tab PRN Q4HRS PRN PO MILD PAIN 1-3; Start 09/13/18 at 11:45 Cefazolin Sodium (Ancef) 1 gm 1X ONCE IVP Last administered on 09/13/18at 17:17; Start 09/13/18 at 17:00; Stop 09/13/18 at 17:01; Status DC Furosemide (Lasix) 40 mg 1X ONCE IVP Last administered on 09/13/18at 12:21; Start 09/13/18 at 12:30; Stop 09/13/18 at 12:31; Status DC Hydralazine HCl (Apresoline Inj) 10 mg PRN Q4HRS PRN IVP ELEVATED BP, SEE COMMENTS Last administered on 09/14/18at 23:16; Start 09/13/18 at 12:00; Stop 09/15/18 at 15:31; Status DC Ceftriaxone Sodium (Rocephin) 1 gm Q24H IVP Last administered on 09/16/18at 14:18; Start 09/13/18 at 15:00 Lactobacillus Rhamnosus (Culturelle) 1 cap BID PO Last administered on 09/16/18at 08:34; Start 09/14/18 at 09:00 Amiodarone HCl (Cordarone) 200 mg DAILY PO Last administered on 09/16/18 08:34; Start 09/14/18 at 14:00 Losartan Potassium (Cozaar) 50 mg DAILY PO Last administered on 09/15/18 07:23; Start 09/14/18 at 14:00; Stop 09/15/18 at 14:06; Status DC Hydralazine HCl (Apresoline Inj) 10 mg PRN Q4HRS PRN IVP ELEVATED BP, SEE COMMENTS Last administered on 09/15/18at 23:41; Start 09/14/18 at 13:30 Olanzapine (ZyPREXA ZYDIS) 5 mg PRN BID PRN PO agitation Last administered on 09/16/18 01:02; Start 09/15/18 at 12:15 Losartan Potassium (Cozaar) 100 mg DAILY PO Last administered on 09/16/18 08:34; Start 09/16/18 at 09:00 Losartan Potassium (Cozaar) 50 mg 1X ONCE PO Last administered on 09/15/18at 14:51; Start 09/15/18 at 14:15; Stop 09/15/18 at 14:16; Status DC Potassium Chloride (Klor-Con) 40 meq 1X ONCE PO Last administered on 09/15/18at 14:54; Start 09/15/18 at 14:30; Stop 09/15/18 at 14:53; Status DC Potassium Phos/ Sodium Phos (Phos-Nak) 1 pkt DAILY PO Last administered on 09/16/18 14:18; Start 09/16/18 at 13:00 Active Scripts Active Doxycycline Monohydrate 100 Mg Capsule 1 Cap PO BID 5 Days Prednisone 20 Mg Tablet 1 Tab PO DAILY 5 Days Percocet 5-325 Mg Tablet (Oxycodone/Acetaminophen) 1 Each Tablet 1 Tab PO PRN Q4HRS PRN 6 Days Zyprexa Zydis (Olanzapine) 5 Mg Tab.rapdis 5 Mg PO PRN BID PRN 30 Days Culturelle (Lactobacillus Rhamnosus Gg) 1 Each Cap.sprink 1 Cap PO BID 7 Days Proair Hfa (Albuterol Sulfate) 8.5 Gm Hfa.aer.ad 2.5 Mg NEB TID 30 Days Reported Levothyroxine Sodium 50 Mcg Tablet 1 Tab PO DAILY Amiodarone Hcl 200 Mg Tablet 1 Tab PO DAILY [Tylenol Arthritis] PO PRN PRN Calcium + Vitamin D Tablet (Calcium Carbonate/Vitamin D3) 1 Each Tablet 1 Each PO BID Losartan-Hctz 50-12.5 Mg Tab (Losartan/Hydrochlorothiazide) 1 Each Tablet 1 Tab PO QHS Crestor (Rosuvastatin Calcium) 20 Mg Tablet 1 Tab PO 3X/WEEK Aspirin 81 Mg Tab.chew 1 Tab PO QHS Vitals/I & O Vital Sign - Last 24 Hours 09/15/18 09/15/18 09/15/18 09/15/18 14:51 15:00 19:15 20:00 Temp 98.4 98.7 98.4 98.7 Pulse 75 75 79 Resp 18 18 B/P (MAP) 160/67 129/47 (74) 148/64 (92) Pulse Ox 97 94 O2 Delivery Nasal Cannula Nasal Cannula Nasal Cannula O2 Flow Rate 2.0 2.0 2.0 09/15/18 09/15/18 09/15/18 09/16/18 21:10 23:35 23:41 00:10 Temp 98.2 98.2 Pulse 75 75 76 Resp 19 B/P (MAP) 181/75 (110) 181/75 151/88 (109) Pulse Ox 98 92 O2 Delivery BiPAP/CPAP Nasal Cannula O2 Flow Rate 2.0 09/16/18 09/16/18 09/16/18 09/16/18 02:39 07:20 07:35 08:00 Temp 98.6 98.3 98.6 98.3 Pulse 78 78 Resp 18 18 B/P (MAP) 165/111 (129) 166/71 (102) Pulse Ox 96 98 O2 Delivery Nasal Cannula Nasal Cannula Nasal Cannula Nasal Cannula O2 Flow Rate 2.0 2.0 2.0 2.0 09/16/18 09/16/18 09/16/18 09/16/18 08:34 08:34 11:00 12:03 Temp 98.4 98.4 Pulse 76 78 71 Resp 18 B/P (MAP) 159/69 (99) Pulse Ox 95 O2 Delivery Nasal Cannula Nasal Cannula O2 Flow Rate 2.0 2.0 Intake and Output 09/15/18 09/15/18 09/16/18 15:00 23:00 07:00 Intake Total 270 ml 220 ml 300 ml Output Total 360 ml 470 ml 300 ml Balance -90 ml -250 ml 0 ml ELIZABETH GARCÍA MD September 16, 2018 14:50
[2018-09-16 15:16] LABS: ALBUMIN UR 42.8 % (.); ALPHA 1 UR 4.4 % (.); ALPHA 2 UR 10.5 % (.); BETA UR 25.7 % (.); GAMMA UR 16.5 % (.); PROTEIN 24 UR 487 mg/24 hr (30-150); PROTEIN UR 49.9 mg/dL (Not Estab.)
--- NOTE | 2018-09-16 15:37 | NUR ---
Discharge: Report called to Guillermo Raymond [phone]. Reviewed medications, orders, pacemaker care, follow-up, ect. Left arm immobilizer in place at time of discharge. Patient assisted off of unit via wheelcahir accompanied by [facility]. Transport forgot patients belongings. Patients daughter picked up belonging and will take to facility including pacemaker box. IV removed without complications, catheter tip in-tact.
== END 2018-09-16 14:55 | DRG 981 ==
LOC: ER 17:57 → 1 WEST ICU 20:48 → 2 SOUTH 09-14 15:52
PROVIDERS: ADMIT Internal Medicine; ATTEND Internal Medicine
PROC: 5A09357 Assistance with Respiratory Ventilation, Less than 24 Consecutive Hours, Continuous Positive Airway Pressure (ICD-10-PCS; 2018-09-11)
PROC: 5A09357 Assistance with Respiratory Ventilation, Less than 24 Consecutive Hours, Continuous Positive Airway Pressure (ICD-10-PCS; 2018-09-12)
PROC: 02H63JZ Insertion of Pacemaker Lead into Right Atrium, Percutaneous Approach (ICD-10-PCS; 2018-09-13)
PROC: 02HK3JZ Insertion of Pacemaker Lead into Right Ventricle, Percutaneous Approach (ICD-10-PCS; 2018-09-13)
PROC: 0JH606Z Insertion of Pacemaker, Dual Chamber into Chest Subcutaneous Tissue and Fascia, Open Approach (ICD-10-PCS; principal; 2018-09-13 09:50)
PROC: 5A09357 Assistance with Respiratory Ventilation, Less than 24 Consecutive Hours, Continuous Positive Airway Pressure (ICD-10-PCS; 2018-09-14)
PROC: 5A09357 Assistance with Respiratory Ventilation, Less than 24 Consecutive Hours, Continuous Positive Airway Pressure (ICD-10-PCS; 2018-09-15)
DX: J96.21 Acute and chronic respiratory failure with hypoxia (principal); I63.9 Cerebral infarction, unspecified; G93.41 Metabolic encephalopathy; I44.2 Atrioventricular block, complete; N17.9 Acute kidney failure, unspecified; J44.1 Chronic obstructive pulmonary disease with (acute) exacerbation; J96.22 Acute and chronic respiratory failure with hypercapnia; I48.0 Paroxysmal atrial fibrillation; N18.9 Chronic kidney disease, unspecified; E66.9 Obesity, unspecified; E03.9 Hypothyroidism, unspecified; E78.5 Hyperlipidemia, unspecified; I12.9 Hypertensive chronic kidney disease with stage 1 through stage 4 chronic kidney disease, or unspecified chronic kidney disease; F17.200 Nicotine dependence, unspecified, uncomplicated; N28.1 Cyst of kidney, acquired; I27.20 Pulmonary hypertension, unspecified; F41.9 Anxiety disorder, unspecified; D64.9 Anemia, unspecified; Z83.3 Family history of diabetes mellitus; Z82.49 Family history of ischemic heart disease and other diseases of the circulatory system; Z79.82 Long term (current) use of aspirin; Z98.49 Cataract extraction status, unspecified eye; Z91.81 History of falling; Z86.73 Personal history of transient ischemic attack (TIA), and cerebral infarction without residual deficits; Z99.81 Dependence on supplemental oxygen
CPT/HCPCS: 33208; 36415; 36600; 70450; 70551; 71045; 71046; 76770; 80048; 80053; 80061; 80069; 81001; 82570; 82805; 83520; 83605; 83735; 83880; 84156; 84165; 84166; 84439; 84443; 84481; 84484; 85018; 85025; 85379; 85610; 85730; 86334; 87040; 87641; 87804; 93005; 93306; 93880; 94640; 94660; 94760; C1769; C1785; C1892; C1898; J0360; J0690; J0696; J1630; J1650; J1940; J2001; J2060; J2250; J2704; J2920; J2930; J3480; J3490; J7050; J7613; 97116; 97530; 97535; 99285-25; J7030